=== PATIENT | male | born 1950 | race Caucasian/White ===

== ENCOUNTER → 2018-12-28 | Outpatient (CLI) | payer MEDICARE ==
[2018-12-28 15:53] LABS: BUN/CREATININE RATIO 10; CREATININE SERUM 1.08 MG/DL (0.60-1.30); GFR ESTIMATED > 60
[2018-12-28 16:07] LABS: ABG BASE EXCESS -1.9 MMOL/L (-2.5-2.5); ABG OXYGEN SATURATION 94 % (94-100); ABG PCO2 34 MMHG (35-45); ABG PH 7.43 (7.37-7.43); ABG PO2 62 MMHG (79-93); ABG TCO2 23.3 MMOL/L (21.0-31.0)
[2018-12-28 16:09] LABS: INSPIRED O2 ROOM AIR; PATIENT TEMP 96.1; VENTILATOR NO
== END ==
LOC: RT 15:13
PROVIDERS: ATTEND Nurse Practitioner Family
DX: J44.9 Chronic obstructive pulmonary disease, unspecified (principal); R06.00 Dyspnea, unspecified; J30.9 Allergic rhinitis, unspecified; R05 Cough; R06.89 Other abnormalities of breathing
CPT/HCPCS: 36415; 36600; 82565; 82805; 84520

== ENCOUNTER 2019-11-21 17:33 | Inpatient (IN) | payer MEDICARE ==
[~2019-11-21] VITALS: Ht 185.5 cm; Wt 81.6 kg
[2019-11-21] VITALS (8 sets, daily range): BP systolic 108–143; BP diastolic 63–91
[2019-11-21] MEDS ORDERED: RT-ALBUTEROL/IPRATROPIUM 3 ML (DUONEB) VIAL INH ONE (17:45)
[2019-11-21] MEDS ORDERED: NS IV 1000 ML 1,000 ML IV SCH (17:45)
[2019-11-21 17:52] LABS: BASOPHILS # (AUTO) 0.1 10^3/uL (0.0-0.1); BASOPHILS % (AUTO) 0 % (0-10); EOSINOPHILS % (AUTO) 0 % (0-10); HEMATOCRIT 44 % (40-54); HEMOGLOBIN 14.8 G/DL (13.3-17.7); LYMPHOCYTES # (AUTO) 1.1 X 10^3 (1.0-4.0); LYMPHOCYTES % (AUTO) 4 % (12-44); MEAN CORPUSCULAR HEMOGLOBIN 30 PG (25-34); MEAN CORPUSCULAR HGB CONC 34 G/DL (32-36); MEAN CORPUSCULAR VOLUME 88 FL (80-99); MEAN PLATELET VOLUME 9.5 FL (7.4-10.4); MONOCYTES # (AUTO) 3.4 X 10^3 (0.0-1.0); MONOCYTES % (AUTO) 11 % (0-12); NEUTROPHILS # (AUTO) 27.6 X 10^3 (1.8-7.8); NEUTROPHILS % (AUTO) 86 % (42-75); RED CELL DISTRIBUTION WIDTH 14.8 % (10.0-14.5)
[2019-11-21] MEDS ORDERED: PROMETHAZINE INJ 25 MG/ML (PHENERGAN) AMP IVP ONE (18:00)
[2019-11-21 18:03] LABS: ABG BASE EXCESS -1.7 MMOL/L (-2.5-2.5); ABG OXYGEN SATURATION 94 % (94-100); ABG PCO2 36 MMHG (35-45); ABG PH 7.41 (7.37-7.43); ABG PO2 72 MMHG (79-93); ABG TCO2 23.2 MMOL/L (21.0-31.0); ALLENS TEST YES-POS; INSPIRED O2 RA; PATIENT TEMP 37.6; VENTILATOR NO
[2019-11-21 18:04] LABS: PLATELET COUNT 1024 10^3/uL (130-400); WHITE BLOOD COUNT 32.2 10^3/uL (4.3-11.0)
[2019-11-21] MEDS ORDERED: RT-ALBUTEROL SULF 2.5 MG/3 ML PRE-MIX VIAL INH SCH (18:15)
[2019-11-21 18:17] LABS: ALANINE AMINOTRANSFERASE 50 U/L (0-55); ALBUMIN 3.7 GM/DL (3.2-4.5); ALKALINE PHOSPHATASE 146 U/L (40-136); BILIRUBIN,TOTAL 0.9 MG/DL (0.1-1.0); BUN/CREATININE RATIO 24; CALCIUM 9.9 MG/DL (8.5-10.1); CARBON DIOXIDE 22 MMOL/L (21-32); CHLORIDE 101 MMOL/L (98-107); GFR ESTIMATED 46; GLUCOSE 107 MG/DL (70-105); POTASSIUM 4.5 MMOL/L (3.6-5.0); SODIUM 137 MMOL/L (135-145); TOTAL PROTEIN 7.7 GM/DL (6.4-8.2)
--- NOTE | 2019-11-21 18:21 | Diagnostic Imaging Report ---
INDICATION: Fatigue, COPD. COMPARISON: None. FINDINGS: Single view of the chest demonstrates hyperinflation compatible with COPD. There are bilateral interstitial infiltrates most pronounced in the left hilum. There is no pneumothorax or effusion. The heart is prominent without pulmonary edema. Osseous structures are age appropriate. IMPRESSION: COPD with bilateral pulmonary infiltrates most pronounced in the left hilum. Follow-up recommended. If this does not resolve, CT chest is needed. Dictated by: Dictated on workstation # [id number]
--- NOTE | 2019-11-21 18:27 | ED Respiratory ---
General Chief Complaint: Respiratory Problems Stated Complaint: FLU GETTING WORSE Nursing Triage Note: pt to rm 7 by wheelchair with complaint of worsening of symptoms. pt had flu a few weeks ago and started having chest tightness on thursday. Source: patient Exam Limitations: no limitations History of Present Illness Date Seen by Provider: Nov 21, 2019 Time Seen by Provider: 17:50 Initial Comments [place] [facility] reports of worsening flulike symptoms. He was diagnosed with influenza about 2 weeks ago, symptoms then improved. About 2 days ago they became worse with fever shortness of breath increasing and chest tightness. He has COPD. Does not wear oxygen at home. Timing/Duration: constant, getting worse Severity: moderate Associated Symptoms: cough, fever/chills, shortness of breath, wheezing Allergies and Home Medications Allergies Coded Allergies: No Known Drug Allergies (Unverified , 11/21/19) Patient Home Medication List Home Medication List Reviewed: Yes Review of Systems Review of Systems Constitutional: see HPI, chills, fever EENTM: see HPI Respiratory: see HPI, cough Cardiovascular: no symptoms reported Genitourinary: no symptoms reported Musculoskeletal: no symptoms reported Skin: no symptoms reported Psychiatric/Neurological: No Symptoms Reported Hematologic/Lymphatic: No Symptoms Reported Immunological/Allergic: no symptoms reported Past Hingsco-Ezhzci-Yxfpcz Hx Patient Social History Alcohol Use: Occasionally Uses Recreational Drug Use: No Smoking Status: Former Smoker Recent Foreign Travel: No Contact w/Someone Who Travel: No Recent Infectious Disease Expo: No Immunizations Up To Date Tetanus Booster (TDap): Unknown PED Vaccines UTD: Yes Physical Exam Vital Signs - First Documented 11/21/19 17:40 Temp 37.6 Pulse 121 Resp 18 B/P (MAP) 108/91 (97) Pulse Ox 93 O2 Delivery Nasal Cannula O2 Flow Rate 2.00 Capillary Refill : Less Than 3 Seconds Height: '" Weight: lbs. oz. kg; 19.00 BMI Method: General Appearance: WD/WN, moderate distress (speaks in short phrases, oxygen saturation 87% room air. Diminished lung sounds with faint wheezing that improved after an hour long treatment) Respiratory: decreased breath sounds, wheezing Cardiovascular: no murmur, tachycardia Gastrointestinal: normal bowel sounds, non tender, soft Neurologic/Psychiatric: alert, normal mood/affect, oriented x 3 Skin: normal color, warm/dry Focused Exam Lactate Level 11/21/19 17:43: Lactic Acid Level 1.28 Lactic Acid Level Laboratory Tests Test 11/21/19 17:43 Lactic Acid Level 1.28 MMOL/L (0.50-2.00) Progress/Results/Core Measures Suspected Sepsis Recent Fever Within 48 Hours: No Infection Criteria Present: None New/Unexplained Altered Menta: No Sepsis Screen: No Definite Risk SIRS Temperature: Pulse: 121 Respiratory Rate: 18 Laboratory Tests 11/21/19 17:43: White Blood Count 32.2*H Blood Pressure 108 /91 Mean: 97 11/21/19 17:43: Lactic Acid Level 1.28 Laboratory Tests 11/21/19 17:43: Creatinine 1.50H, Platelet Count 1024*H, Total Bilirubin 0.9 Results/Orders Lab Results Laboratory Tests Test 11/21/19 17:43 11/21/19 17:48 Range/Units White Blood Count 32.2 *H 4.3-11.0 10^3/uL Red Blood Count 4.98 4.35-5.85 10^6/uL Hemoglobin 14.8 13.3-17.7 G/DL Hematocrit 44 40-54 % Mean Corpuscular Volume 88 80-99 FL Mean Corpuscular Hemoglobin 30 25-34 PG Mean Corpuscular Hemoglobin Concent 34 32-36 G/DL Red Cell Distribution Width 14.8 H 10.0-14.5 % Platelet Count 1024 *H 130-400 10^3/uL Mean Platelet Volume 9.5 7.4-10.4 FL Neutrophils (%) (Auto) 86 H 42-75 % Lymphocytes (%) (Auto) 4 L 12-44 % Monocytes (%) (Auto) 11 0-12 % Eosinophils (%) (Auto) 0 0-10 % Basophils (%) (Auto) 0 0-10 % Neutrophils # (Auto) 27.6 H 1.8-7.8 X 10^3 Lymphocytes # (Auto) 1.1 1.0-4.0 X 10^3 Monocytes # (Auto) 3.4 H 0.0-1.0 X 10^3 Eosinophils # (Auto) 0.0 0.0-0.3 10^3/uL Basophils # (Auto) 0.1 0.0-0.1 10^3/uL Neutrophils % (Manual) 83 % Lymphocytes % (Manual) 5 % Monocytes % (Manual) 9 % Band Neutrophils 3 % Blood Morphology Comment NORMAL Sodium Level 137 135-145 MMOL/L Potassium Level 4.5 3.6-5.0 MMOL/L Chloride Level 101 98-107 MMOL/L Carbon Dioxide Level 22 21-32 MMOL/L Anion Gap 14 5-14 MMOL/L Blood Urea Nitrogen 36 H 7-18 MG/DL Creatinine 1.50 H 0.60-1.30 MG/DL Estimat Glomerular Filtration Rate 46 BUN/Creatinine Ratio 24 Glucose Level 107 H 70-105 MG/DL Lactic Acid Level 1.28 0.50-2.00 MMOL/L Calcium Level 9.9 8.5-10.1 MG/DL Corrected Calcium 10.1 8.5-10.1 MG/DL Total Bilirubin 0.9 0.1-1.0 MG/DL Aspartate Amino Transf (AST/SGOT) 36 H 5-34 U/L Alanine Aminotransferase (ALT/SGPT) 50 0-55 U/L Alkaline Phosphatase 146 H 40-136 U/L Troponin I < 0.028 <0.028 NG/ML B-Type Natriuretic Peptide 19.2 <100.0 PG/ML Total Protein 7.7 6.4-8.2 GM/DL Albumin 3.7 3.2-4.5 GM/DL Blood Gas Puncture Site RR Blood Gas Patient Temperature 37.6 Arterial Blood pH 7.41 7.37-7.43 Arterial Blood Partial Pressure CO2 36 35-45 MMHG Arterial Blood Partial Pressure O2 72 L 79-93 MMHG Arterial Blood HCO3 22 L 23-27 MMOL/L Arterial Blood Total CO2 23.2 21.0-31.0 MMOL/L Arterial Blood Oxygen Saturation 94 94-100 % Arterial Blood Base Excess -1.7 -2.5-2.5 MMOL/L Pacheco Test YES-POS Blood Gas Ventilator Setting NO Blood Gas Inspired Oxygen RA Micro Results Microbiology 11/21/19 Influenza Types A,B Antigen ([place]) - Final, Complete My Orders Orders - JENELLE SIMMONS [employer] Cbc With Automated Diff (11/21/19 17:44) Comprehensive Metabolic Panel (11/21/19 17:44) BNP (11/21/19 17:44) Influenza A And B Antigens (11/21/19 17:44) Chest 1 View, Ap/Pa Only (11/21/19 17:44) Ed Iv/Invasive Line Start (11/21/19 17:44) Blood Culture (11/21/19 17:44) Lactic Acid Analyzer (11/21/19 17:44) Ekg Tracing (11/21/19 17:44) Troponin I (11/21/19 17:44) Ns Iv 1000 Ml (Sodium Chloride 0.9%) (11/21/19 17:45) Albuterol/Ipra Inhalation Soln (Duoneb I (11/21/19 17:45) Svn Small Volume Nebulizer (11/21/19 17:44) Arterial Blood Gas (11/21/19 17:49) Promethazine Injection (Phenergan Injec (11/21/19 18:00) Manual Differential (11/21/19 17:43) Albuterol Pre-Mix Nebs (Rt) (Proventil (11/21/19 18:15) Svn Small Volume Nebulizer (11/21/19 18:05) Piperacillin Sodium/Tazobactam (Zosyn Vi (11/21/19 18:45) Chest 1 View, Ap/Pa Only (11/21/19 19:07) Medications Given in ED Current Medications Medications Dose Ordered Sig/Cody Route Start Time Stop Time Status Last Admin Dose Admin Albuterol/ Ipratropium 3 ml ONCE ONCE INH 11/21/19 17:45 11/21/19 17:47 DC 11/21/19 18:31 3 ML Piperacillin Sod/ Tazobactam Sod 4.5 gm/Sodium Chloride 100 ml @ 200 mls/hr ONCE ONCE IV 11/21/19 18:45 11/21/19 19:14 11/21/19 18:50 200 MLS/HR Vital Signs/I&O 11/21/19 11/21/19 11/21/19 17:40 18:31 18:32 Temp 37.6 Pulse 121 Resp 18 B/P (MAP) 108/91 (97) Pulse Ox 93 95 95 O2 Delivery Nasal Cannula Nasal Cannula Nasal Cannula O2 Flow Rate 2.00 2.00 2.00 Capillary Refill : Less Than 3 Seconds Blood Pressure Mean: 97 Departure Communication (Admissions) Time/Spoke to Admitting Phy: 19:11 1910-Spoke with Dr. Sepulveda, we will admit, blood pressure is been little softer at 100 systolic, heart rate tachycardia 110-120. Zosyn 4.5 g given. After much deliberation the patient finally agreed to central line placement. I did use ultrasound guidance to place a central line into the right internal jugular vein without complication, good blood return. Patient tolerated well. Impression Primary Impression: post influenza pneumonia Additional Impressions: Severe sepsis thrombocytosis presumed reactive Disposition: ADMITTED INPATIENT Condition: Critical Admissions Decision to Admit Reason: Admit from ER (General) Decision to Admit/Date: Nov 21, 2019 Time/Decision to Admit Time: 19:12 Departure-Patient Inst. Referrals: DEEJAY DE MD (PCP/Family) Primary Care Physician JENELLE SIMMONS APRN Nov 21, 2019 18:27
--- NOTE | 2019-11-21 18:40 | History & Physical-Hospitalist ---
History of Present Illness HPI/Chief Complaint CC: Bilateral pneumonia HPI: This is a 69yoWM clinic patient of Dr Pedersen who is known to me since last admit for PNA who [facility] and fever 2 weeks after flu. Patient was found to have elevated wbc with bilateral PNA and thrombocytosis. Patient reports feeling badly and wheezing for the past 3 days. Patient does not wear O2 at home. Source: patient Exam Limitations: no limitations Date Seen 11/21/19 Time Seen by a Provider: 18:45 Attending Physician PCP Shaw Pedersen MD Referring Physician Date of Admission Home Medications & Allergies Home Medications Reviewed patient Home Medication Reconciliation performed by pharmacy medication reconciliations template reproduction technician and/or nursing. Patients Allergies have been reviewed. Allergies Allergies Coded Allergies No Known Drug Allergies (Unverified11/21/19) Past Bpxveja-Spgruu-Ivygzd Hx Past Med/Social Hx: Reviewed Nursing Past Med/Soc Hx, Reviewed and Corrections made Patient Social History Marrital Status: Employed/Student: retired Alcohol Use: Occasionally Uses Recreational Drug Use: No Smoking Status: Former Smoker Recent Foreign Travel: No Contact w/other who traveled: No Recent Infectious Disease Expo: No Immunizations Up To Date Tetanus Booster (TDap): Unknown Pediatric: Yes Past Medical History Respiratory: COPD, Pneumonia Review of Systems Constitutional: see HPI Respiratory: cough, dyspnea on exertion, short of breath, wheezing Physical Exam Physical Exam Vital Signs Vital Signs - First Documented 11/21/19 11/21/19 17:40 23:02 Temp 37.6 Pulse 121 Resp 18 B/P (MAP) 108/91 (97) Pulse Ox 93 O2 Delivery Nasal Cannula O2 Flow Rate 2.00 FiO2 2 Capillary Refill : Less Than 3 Seconds Height, Weight, BMI Height: '" Weight: lbs. oz. kg; 19.00 BMI Method: General Appearance: WD/WN, Anxious, Chronically ill, Mild Distress Eyes: Right Eye Normal Inspection, Right Eye PERRL HEENT: PERRL/EOMI, Normal ENT Inspection, Pharynx Normal, Moist Mucous Membranes Neck: Full Range of Motion, Normal Inspection, Non Tender Respiratory: Chest Non Tender, No Accessory Muscle Use, No Respiratory Distress, Crackles, Decreased Breath Sounds, Wheezing Cardiovascular: Regular Rate, Rhythm, No Edema, No Gallop, No JVD, No Murmur, Normal Peripheral Pulses Gastrointestinal: Normal Bowel Sounds, No Organomegaly, No Pulsatile Mass, Non Tender, Soft Back: Normal Inspection, No CVA Tenderness, No Vertebral Tenderness Extremity: Normal Capillary Refill, Normal Inspection, Normal Range of Motion, Non Tender, No Calf Tenderness, No Pedal Edema Neurologic/Psychiatric: Alert, Oriented x3, No Motor/Sensory Deficits, Normal Mood/Affect Skin: Normal Color, Warm/Dry Lymphatic: No Adenopathy Results Results/Procedures Labs Laboratory Tests 11/21/19 17:43 11/22/19 03:17 Patient resulted labs reviewed. Assessment/Plan Admission Diagnosis Assessment: PNA bilateral COPD Leukocytosis Thrombocytosis Plan: Abx IVF Monitor closely Admission Status: Inpatient Order (span 2 midnights) Reason for Inpatient Admission: PNA bilateral Diagnosis/Problems Diagnosis/Problems (1) Severe sepsis Status: Acute (2) Pneumonia (3) Thrombocytosis (4) Leukocytosis (5) COPD (chronic obstructive pulmonary disease) BALDOMERO ROSALES DO Nov 21, 2019 18:40
[2019-11-21] MEDS ORDERED: PIPERACILLIN SODIUM/TAZOBACTAM 4.5 GM in NS (IVPB) 100 ML IV ONE (18:45)
[2019-11-21 18:49] LABS: BAND NEUTROPHILS 3 %; NEUTROPHILS % (MANUAL) 83 %
[2019-11-21 18:50] LABS: LYMPHOCYTES % (MANUAL) 5 %; MONOCYTES % (MANUAL) 9 %; RBC MORPH NORMAL
--- NOTE | 2019-11-21 19:00 | NUR ---
CENTRAL LINE INSERTED BY Sangeetha GARCIA IN R IJ.
--- NOTE | 2019-11-21 19:32 | Diagnostic Imaging Report ---
INDICATION: Central venous catheter evaluation Portable upright AP view of the chest is obtained. Since the study of earlier in the day, there has been placement of right jugular central venous catheter with tip projecting over the region of right brachiocephalic vein. There is air trapping bilaterally. Coarse interstitial and alveolar densities are seen in both lungs with a central predominance. In addition, there is an approximately 1 cm nodular focus seen within the region of right upper lobe. IMPRESSION: Bilateral infiltrates similar to previous study. There is likely background COPD. There is also question of 1 cm nodular focus in the right upper lobe and consideration could be given to follow-up CT imaging for assessment. Right central venous catheter reaches the level of brachiocephalic vein without pneumothorax. Dictated by: Dictated on workstation # [id number]
--- NOTE | 2019-11-21 20:43 | NUR ---
MALATHIJOSEFINA admitted to room CU12-1, with an admitting diagnosis of Pneumonia, on 11/21/19 from [facility] ED, accompanied by .JOSEFINA SERVIN introduced to surroundings, call light, bed controls, phone, TV, temperature control, lights, meal times, smoking policy, visitor policy, side rail policy, bathrooms and showers. Patient Rights given to patient in the handbook. JOSEFINA SERVIN verbalizes understanding that [facility] is not responsible for the loss or damage to any personal effects or valuables that are kept in the patients possession during their hospitalization. The following Patient Care Plans were discussed with the patient and family: Discharge Planning, pain,diet, and activity. JOSEFINA SERVIN verbalizes understanding of Interdisciplinary Patient Education. Patient and/or family were informed about the Rapid Response Team and its purpose.
[2019-11-21] MEDS ORDERED: LACTATED RINGERS 1,000 ML IV ONE (21:15)
[2019-11-21] MEDS ORDERED: ACETAMINOPHEN 325 MG TABLET PO PRN (22:00)
[2019-11-21] MEDS ORDERED: EPINEPHrine 1 MG INJECTION 2 MG in NS (IVPB) 250 ML IV SCH (22:00)
[2019-11-21] MEDS ORDERED: ONDANSETRON 4 MG/2 ML (SDV) Z0FRAN IV PRN (22:00)
[2019-11-21] MEDS ORDERED: ENOXAPARIN 40 MG/0.4 ML (LOVENOX) SYR SC SCH (22:00)
[2019-11-21] MEDS ORDERED: IBUPROFEN 600 MG (MOTRIN) TAB PO PRN (22:00)
[2019-11-21] MEDS: VASOPRESSIN INJECTION 20 UNIT in NORMAL SALINE 100 ML IV SCH (22:06)
[2019-11-21] MEDS: NOREPINEPHRINE 4 MG/250 ML 250 ML IV SCH (22:06)
[2019-11-21] MEDS: methylPREDNISolone 125 MG (Solu-MEDROL) VIAL IVP SCH (22:11)
[2019-11-21] MEDS ORDERED: LACTATED RINGERS 1,000 ML IV SCH (22:11)
[2019-11-21] MEDS: LACTATED RINGERS 1,000 ML IV SCH (22:17)
[2019-11-21] MEDS ORDERED: NS (IVPB) 250 ML ONE (22:45)
[2019-11-21] MEDS ORDERED: NS (IVPB) 100 ML ONE (22:45)
[2019-11-21] MEDS ORDERED: VANCOMYCIN 1000 MG/VIAL ONE (22:45)
[2019-11-21] MEDS ORDERED: PIPERACILLIN/TAZO 4.5 GM VIAL (ZOSYN) IV ONE (22:45)
[2019-11-21] MEDS ORDERED: VANCOMYCIN 1 GM/NS 250 ML IVPB IV SCH ×2 (23:00)
[2019-11-22] VITALS (13 sets, daily range): BP systolic 100–129; BP diastolic 63–91
[2019-11-22] MEDS: PIPERACILLIN/TAZOBACTAM (BULK) 4.5 GM in NS (IVPB) 100 ML IV SCH ×3 (00:33→19:21)
[2019-11-22] MEDS ORDERED: RT-ALBUTEROL/IPRATROPIUM 3 ML (DUONEB) VIAL INH SCH ×2 (02:00→09:00)
[2019-11-22] MEDS: RT-ALBUTEROL/IPRATROPIUM 3 ML (DUONEB) VIAL INH PRN ×2 (02:42→14:56)
[2019-11-22 03:26] LABS: BASOPHILS % (AUTO) 0 % (0-10); EOSINOPHILS % (AUTO) 0 % (0-10); HEMATOCRIT 36 % (40-54); HEMOGLOBIN 12.2 G/DL (13.3-17.7); LYMPHOCYTES # (AUTO) 0.4 X 10^3 (1.0-4.0); LYMPHOCYTES % (AUTO) 2 % (12-44); MEAN CORPUSCULAR HEMOGLOBIN 30 PG (25-34); MEAN CORPUSCULAR HGB CONC 34 G/DL (32-36); MEAN CORPUSCULAR VOLUME 89 FL (80-99); MEAN PLATELET VOLUME 9.3 FL (7.4-10.4); MONOCYTES # (AUTO) 0.4 X 10^3 (0.0-1.0); MONOCYTES % (AUTO) 2 % (0-12); NEUTROPHILS # (AUTO) 22.8 X 10^3 (1.8-7.8); NEUTROPHILS % (AUTO) 96 % (42-75); PLATELET COUNT 843 10^3/uL (130-400); RED CELL DISTRIBUTION WIDTH 14.6 % (10.0-14.5); WHITE BLOOD COUNT 23.7 10^3/uL (4.3-11.0)
--- NOTE | 2019-11-22 03:30 | NUR ---
Patient with new onset A FIB RVR confirmed by EKG called to Dr Sepulveda. Order to call cardiology.
--- NOTE | 2019-11-22 03:31 | NUR ---
Call placed to Dr Barksdale, order to start Cardizem drip @10mg/hr and titrate PRN. Order for Lovenox 70mg q 12 hrs.
[2019-11-22] MEDS ORDERED: NS (IVPB) 100 ML ONE (03:35)
[2019-11-22] MEDS ORDERED: ENOXAPARIN 80 MG/0.8 ML (LOVENOX) SYR SC SCH (03:45)
[2019-11-22 03:46] LABS: ALANINE AMINOTRANSFERASE 42 U/L (0-55); ALKALINE PHOSPHATASE 109 U/L (40-136); BILIRUBIN,TOTAL 0.6 MG/DL (0.1-1.0); BUN/CREATININE RATIO 27; CALCIUM 8.9 MG/DL (8.5-10.1); CARBON DIOXIDE 21 MMOL/L (21-32); CHLORIDE 105 MMOL/L (98-107); GFR ESTIMATED > 60; GLUCOSE 153 MG/DL (70-105); SODIUM 136 MMOL/L (135-145); TOTAL PROTEIN 6.3 GM/DL (6.4-8.2)
[2019-11-22] MEDS: methylPREDNISolone 125 MG (Solu-MEDROL) VIAL IVP SCH (03:50)
--- NOTE | 2019-11-22 04:30 | Pulmonary Consultation ---
History of Present Illness History of Present Illness Date Seen by Provider: Nov 22, 2019 Time Seen by Provider: 04:24 Date of Admission Allergies and Home Medications Allergies Coded Allergies: No Known Drug Allergies (Unverified , 11/21/19) Past Trfuerh-Oobqym-Gspqdl Hx Past Med/Social Hx: Reviewed Nursing Past Med/Soc Hx, Reviewed and Corrections made Patient Social History Alcohol Use: Occasionally Uses Alcohol Beverage of Choice: Beer Recreational Drug Use: No Smoking Status: Former Smoker Recent Foreign Travel: No Contact w/Someone Who Travel: No Recent Infectious Disease Expo: No Recent Hopitalizations: No Immunizations Up To Date Tetanus Booster (TDap): Unknown PED Vaccines UTD: No Date of Pneumonia Vaccine: Jul 21, 2017 Seasonal Allergies Seasonal Allergies: Yes Past Medical History Surgeries: No Respiratory: Yes COPD Currently Using CPAP: No Currently Using BIPAP: No Cardiac: No Neurological: No Genitourinary: No Gastrointestinal: No Musculoskeletal: No Endocrine: No HEENT: No Cancer: No Psychosocial: No Integumentary: Yes (Spot on left ear "burnt off several yrs ago") Recent Skin Changes Blood Disorders: No Adverse Reaction/Blood Tranf: No Family Medical History Abdominal aortic aneurysm Alzheimer's disease 19 FATHER, , Onset:60 years & older Completed stroke G8 SISTER, Onset:60 years & older FH: blindness 19 FATHER, , Onset:Unknown 19 MOTHER, , Onset:Unknown FH: breast cancer 19 MOTHER, , Onset:40's - 50 FH: colon cancer G8 BROTHER, Onset:60 years & older FH: liver cancer G8 BROTHER, Onset:60 years & older Sepsis Event Evaluation Height, Weight, BMI Height: '" Weight: lbs. oz. kg; 21.79 BMI Method: Exam Exam Vital Signs Date Time Temp Pulse Resp B/P (MAP) Pulse Ox O2 Delivery O2 Flow Rate FiO2 11/22/19 03:50 Nasal Cannula 3.00 11/22/19 03:50 36.9 133 22 116/68 (84) 92 Nasal Cannula 3.00 11/22/19 03:45 140 116/68 11/22/19 02:42 95 Nasal Cannula 2.00 11/21/19 23:18 91 Nasal Cannula 2.00 11/21/19 23:02 37.6 121 93 2 11/21/19 23:00 36.7 110 22 143/74 (97) 94 Nasal Cannula 3.00 11/21/19 23:00 Nasal Cannula 3.00 11/21/19 22:00 101 14 125/65 (85) 96 Nasal Cannula 3.00 11/21/19 21:45 107 17 114/64 (81) 95 Nasal Cannula 3.00 11/21/19 21:44 94 Nasal Cannula 3.00 11/21/19 21:30 112 23 111/66 (81) 94 Nasal Cannula 3.00 11/21/19 21:15 112 19 124/69 (87) 94 Nasal Cannula 3.00 11/21/19 21:00 113 18 111/63 (79) 92 Nasal Cannula 3.00 11/21/19 20:48 115 11/21/19 20:45 36.9 112 16 109/83 (92) 94 Nasal Cannula 3.00 11/21/19 20:23 37.4 110 17 113/76 (97) 95 Nasal Cannula 2.00 11/21/19 18:32 95 Nasal Cannula 2.00 11/21/19 18:31 95 Nasal Cannula 2.00 11/21/19 17:40 37.6 121 18 108/91 (97) 93 Nasal Cannula 2.00 I & O 11/22/19 07:00 Intake Total 2410 ml Output Total 0 ml Balance 2410 ml Height & Weight Height: '" Weight: lbs. oz. kg; 21.79 BMI Method: General Appearance: WD/WN, Anxious, Chronically ill, Mild Distress HEENT: PERRL/EOMI, Normal ENT Inspection, Pharynx Normal, Moist Mucous Membranes Neck: Full Range of Motion, Normal Inspection, Non Tender Respiratory: Chest Non Tender, No Accessory Muscle Use, No Respiratory Distress, Crackles, Decreased Breath Sounds, Wheezing Cardiovascular: Regular Rate, Rhythm, No Edema, No Gallop, No JVD, No Murmur, Normal Peripheral Pulses Capillary Refill: Less Than 3 Seconds Gastrointestinal: normal bowel sounds, non tender, soft Extremity: Normal Capillary Refill, Normal Inspection, Normal Range of Motion, Non Tender, No Calf Tenderness, No Pedal Edema Neurologic/Psychiatric: Alert, Oriented x3, No Motor/Sensory Deficits, Normal Mood/Affect Skin: Normal Color, Warm/Dry Lymphatic: No Adenopathy Results Lab Laboratory Tests 11/21/19 17:43 2/11/20 03:17 Assessment/Plan Assessment/Plan Bilateral PNA -Influenza negative -Vanco/Zosyn -Weir cultures pending COPD -Duonebs add pulmicort -Solumedrol -Pt will probably need home 02 upon discharge -Check CT of chest with contrast r/o mass Afib RVR -- new onset last night -Cardizem gtt -IVF -Cardiology following KEITH MULLEN DO Nov 22, 2019 04:30
[2019-11-22] MEDS: LACTATED RINGERS 1,000 ML IV SCH ×3 (05:34→19:22)
[2019-11-22] MEDS: NOREPINEPHRINE 4 MG/250 ML 250 ML IV SCH ×3 (05:34→21:49)
[2019-11-22] MEDS: VASOPRESSIN INJECTION 20 UNIT in NORMAL SALINE 100 ML IV SCH ×3 (05:34→22:21)
[2019-11-22 05:46] LABS: ABG BASE EXCESS -1.2 MMOL/L (-2.5-2.5); ABG OXYGEN SATURATION 95 % (94-100); ABG PCO2 34 MMHG (35-45); ABG PH 7.44 (7.37-7.43); ABG PO2 72 MMHG (79-93); ABG TCO2 23.5 MMOL/L (21.0-31.0)
[2019-11-22 05:47] LABS: ALLENS TEST YES-POS; INSPIRED O2 3L; PATIENT TEMP 36.8; VENTILATOR NO
[2019-11-22] MEDS ORDERED: FLU QUADRIvalent (5+ YOA) 2019-2020 (AFLURIA) 0.5 ML IM ONE (06:45)
[2019-11-22 07:33] LABS: BILIRUBIN,URINE NEGATIVE (NEGATIVE); CLARITY,URINE CLEAR; COLOR,URINE YELLOW; GLUCOSE, URINE (UA) 1+ (NEGATIVE); KETONES,URINE TRACE (NEGATIVE); LEUKOCYTE ESTERASE ,URINE NEGATIVE (NEGATIVE); NITRITE,URINE NEGATIVE (NEGATIVE); PROTEIN,URINE 1+ (NEGATIVE)
[2019-11-22 07:46] LABS: BACTERIA,URINE FEW /HPF; RBC,URINE 0-2 /HPF
[2019-11-22 07:47] LABS: HYALINE CASTS, URINE RARE /LPF; SQUAMOUS EPITHELIAL CELL,UR RARE /HPF
[2019-11-22] MEDS: VANCOMYCIN INJECTION 1,000 MG in NS (IVPB) 250 ML IV SCH ×2 (08:07→20:55)
[2019-11-22] MEDS ORDERED: FLUT1AER INH (08:52)
[2019-11-22] MEDS ORDERED: MULT1TAB69 PO (08:52)
[2019-11-22] MEDS ORDERED: GUAI120013 PO (08:52)
[2019-11-22] MEDS ORDERED: IPRA3AMP31 NEB (08:52)
[2019-11-22] MEDS ORDERED: CETI10TA17 PO (08:52)
[2019-11-22] MEDS ORDERED: ASPI325T32 PO (08:52)
--- NOTE | 2019-11-22 08:53 | NUR ---
SPOKE WITH THE PATIENT ABOUT HIS MEDICATIONS. HE STATES PRESCRIPTION HE HAS THE BREO INHALER AND DUONEB NEBULIZER SOLUTION, I VERIFIED THESE WITH THE EXT MED HX. OTC MEDS: ZYRTEC 10MG DAILY MUCINEX 1200MG DAILY MTV DAILY ASPIRIN 325MG DAILY
[2019-11-22] MEDS: methylPREDNISolone 40 MG/ML (Solu-MEDROL) VIAL IVP SCH ×2 (09:29→19:21)
[2019-11-22] MEDS: RT-BUDESONIDE NEBS 0.5 MG/2ML (PULMICORT) AMP INH SCH ×2 (09:56→21:46)
--- NOTE | 2019-11-22 10:23 | NUR ---
Initial visit: The pt shared that his Britta has a cough and he is encouraging her to go to a doctor so both do not become seriously ill. He is Lutheran with no episcopalian preference. The pt shared he used to do [employer] and has worked in the farming industry. He shared openly about his life and welcomed ongoing pastoral support.
[2019-11-22] MEDS ORDERED: NS 100 ML (IVPB) BAG IV ONE (10:30)
[2019-11-22] MEDS ORDERED: IOHEXOL 350 MG/ML 100 ML (OMNIPAQUE 350) VIAL IV ONE (10:30)
[2019-11-22] MEDS ORDERED: CATHETER FLUSH 10 ML SYR IV PRN (10:30)
[2019-11-22] MEDS ORDERED: HOLD METFORMIN - RECEIVED CONTRAST 20 ML VIAL IV SCH (10:30)
--- NOTE | 2019-11-22 10:32 | Consultation-Cardiology ---
HPI-Cardiology Cardiology Consultation: Date of Consultation 11/22/19 Time Seen by a Provider: 10:10 Date of Admission 11-21-2019 Attending Physician Giselle Sepulveda DO Admitting Physician Shaw Pedersen MD Consulting Physician CLARY GARCIA HPI: Chief Complaint: New onset a-fib with RVR Mr. Servin is a 69 year old male who has seth admitted to ICU 12 from the ED. He reports at the end of October 2019 he was diagnosed with influenza. He states he was given Tamiflu. He reports he has had progressive SOB over the course of the last 2 weeks, but on Thursday he developed a fever which persisted off and on till Thursday. He states he has had a frequent dry cough for the last several day. He denies any n/v/d. He reports poor appetite. He reports chest tightness which has been constant for several days. He denies any palpitations, syncope, near syncope or LE swelling. He reports he feels his breathing is not much better than at the time of admission. He does use chew tobacco. Review of Systems-Cardiology Review of Systems Constitutional: chills, fever, malaise Eyes: No vision change Ears/Nose/Throat: No epistaxis, No recent hearing loss Respiratory: As described under HPI Cardiovascular: As described under HPI Gastrointestinal: No constipation, No diarrhea, No nausea, No vomiting Genitourinary: No dysuria Musculoskeletal: no symptoms reported Skin: No rash on exposed areas, No ulcerations on exposed areas Psychiatric/Neurological: No anxiety, No depression, No seizure, No focal weakness, No syncope Hematologic: No bleeding abnormalities [id number]-[id number] Hx Patient Social History Marrital Status: Employed/Student: retired Alcohol Use: Occasionally Uses Recreational Drug Use: No Smoking Status: Former Smoker Recent Foreign Travel: No Recent Infectious Disease Expo: No Hospitalization with Isolation: Denies Physical Abuse Screen: No Sexual Abuse: No Immunizations Up To Date Tetanus Booster (TDap): Unknown Date of Pneumonia Vaccine: Jul 21, 2017 Past Medical History PMH As described under Assessment. Family Medical History Family Medical History: He reports his mother, brother and sister have had CVA's. No reported family h/o CAD. Family History: Abdominal aortic aneurysm Alzheimer's disease 19 FATHER, , Onset:60 years & older Completed stroke G8 SISTER, Onset:60 years & older FH: blindness 19 FATHER, , Onset:Unknown 19 MOTHER, , Onset:Unknown FH: breast cancer 19 MOTHER, , Onset:40's - 50 FH: colon cancer G8 BROTHER, Onset:60 years & older FH: liver cancer G8 BROTHER, Onset:60 years & older Allergies and Home Medications Allergies Coded Allergies: No Known Drug Allergies (Unverified , 11/21/19) Home Medications Aspirin 325 Mg Tablet.dr, 325 MG PO DAILY, (Reported) Cetirizine HCl 10 Mg Tablet, 10 MG PO DAILY, (Reported) Fluticasone/Vilanterol 1 Each Blst.w.dev, 1 PUFF INH DAILY, (Reported) Guaifenesin 1,200 Mg Tab.er.12h, 1,200 MG PO DAILY, (Reported) Ipratropium/Albuterol Sulfate 3 Ml Ampul.neb, 3 ML NEB QID PRN for SHORTNESS OF BREATH, (Reported) Multivitamin 1 Each Tablet, 1 TAB PO DAILY, (Reported) Patient Home Medication List Home Medication List Reviewed: Yes Physical Exam-Cardiology Physical Exam Vital Signs/I&O 11/23/19 11/23/19 11/23/19 11/23/19 01:18 01:45 04:00 04:30 Temp 37.2 Pulse 76 77 Resp 21 B/P (MAP) 110/75 (87) Pulse Ox 96 95 94 O2 Delivery Nasal Cannula Nasal Cannula Nasal Cannula O2 Flow Rate 3.00 3.00 3.00 11/23/19 11/23/19 11/23/19 11/23/19 06:37 07:27 07:31 08:00 Pulse 100 112 Resp 16 B/P (MAP) 142/73 (96) Pulse Ox 94 95 O2 Delivery Nasal Cannula Nasal Cannula Nasal Cannula O2 Flow Rate 3.00 3.00 3.00 11/23/19 11/23/19 11/23/19 08:00 09:00 10:56 Pulse Ox 95 95 93 O2 Delivery Nasal Cannula Nasal Cannula Nasal Cannula O2 Flow Rate 3.00 3.00 3.00 11/23/19 00:00 Intake Total 2380 ml Output Total 1300 ml Balance 1080 ml Capillary Refill : Less Than 3 Seconds Constitutional: AAO x 3, well-developed, well-nourished HEENT: PERRL, hearing is well preserved, oral hygience is good Neck: No carotid bruit; carotid pulses are 2 + bilaterally Respiratory: rhonchi (scattered), other (diminished throughout; dyspneic with conversation; frequent non-prod cough) Cardiovascular: irregularly irregular; No JVD; S1 and S2 Gastrointestinal: No tender; soft, round, audible bowel sounds Extremities: no lower extremity edema bilateral Neurologic/Psychiatric: other (moves all extremities) Skin: No rash on exposed areas, No ulcerations on exposed areas Data Review Labs Laboratory Tests 11/23/19 02:30: White Blood Count 21.7H, Red Blood Count 3.58L, Hemoglobin 10.6L, Hematocrit 32L , Mean Corpuscular Volume 90, Mean Corpuscular Hemoglobin 30, Mean Corpuscular Hemoglobin Concent 33, Red Cell Distribution Width 15.0H, Platelet Count 823H, Mean Platelet Volume 9.3, Neutrophils (%) (Auto) 94H, Lymphocytes (%) (Auto) 2L, Monocytes (%) (Auto) 4, Eosinophils (%) (Auto) 0, Basophils (%) (Auto) 0, Neutrophils # (Auto) 20.5H, Lymphocytes # (Auto) 0.4L, Monocytes # (Auto) 0.9, Eosinophils # (Auto) 0.0, Basophils # (Auto) 0.0, Sodium Level 139, Potassium Level 3.9, Chloride Level 108H, Carbon Dioxide Level 22, Anion Gap 9, Blood Urea Nitrogen 25H, Creatinine 1.04, Estimat Glomerular Filtration Rate > 60, BUN/Creatinine Ratio 24, Glucose Level 224H, Calcium Level 8.7, Corrected Calcium 9.7, Phosphorus Level 2.1L, Magnesium Level 2.1, Total Bilirubin 0.3, Aspartate Amino Transf (AST/SGOT) 45H, Alanine Aminotransferase (ALT/SGPT) 56H, Alkaline Phosphatase 98, Total Protein 5.7L, Albumin 2.8L Microbiology 11/21/19 Gram Stain - Final, Resulted 11/21/19 Sputum Culture, Resulted Pending 11/21/19 Blood Culture - Preliminary, Resulted No growth Radiology NAME: JOSEFINA SERVIN [facility] REC#: [id number] PT STATUS: ADM IN : 1950 PHYSICIAN: JENELLE SIMMONS APRN ADMIT DATE: 11/21/19/ICU Signed Date of Exam:11/21/19 CHEST 1 VIEW, AP/PA ONLY INDICATION: Central venous catheter evaluation Portable upright AP view of the chest is obtained. Since the study of earlier in the day, there has been placement of right jugular central venous catheter with tip projecting over the region of right brachiocephalic vein. There is air trapping bilaterally. Coarse interstitial and alveolar densities are seen in both lungs with a central predominance. In addition, there is an approximately 1 cm nodular focus seen within the region of right upper lobe. IMPRESSION: Bilateral infiltrates similar to previous study. There is likely background COPD. There is also question of 1 cm nodular focus in the right upper lobe and consideration could be given to follow-up CT imaging for assessment. Right central venous catheter reaches the level of brachiocephalic vein without pneumothorax. Dictated by: Dictated on workstation # [id number] Dict: 11/21/198 Trans: 11/21/192205 CHELY [id number] Interpreted by: JAVIER COHEN MD Electronically signed by: JAVIER COHEN MD 11/21/192205 ECG Impression ECG Initial ECG Impression: Atrial Fibrillation A/P-Cardiology Assessment/Admission Diagnosis New onset of a-fib with RVR - first diagnosed on EKG of 11-21-2019 Pneumonia - management per medical services HTN COPD Chew tobacco user (quit smoking approx 20 years ago) Thrombocytosis and leukocytosis - management per medical services Discussion and Recomendations New onset of a-fib with RVR - rate improved on Cardizem gtt Anticoagulation for stroke prophylaxis Pneumonia - management per medical services CT today Continue Lovenox for now Thrombocytosis of undetermined etiology - medical services managing Echocardiogram to eval structure and function Monitor lab closely Further recs will be based on hospital course We would like to thank medical services for this consult Clinical Quality Measures DVT/VTE Risk/Contraindication: Risk Factor Score Per Nursin RFS Level Per Nursing on Admit: 2=Moderate CLARY GONZALEZ Nov 22, 2019 10:32
--- NOTE | 2019-11-22 11:07 | Diagnostic Imaging Report ---
PROCEDURE: CT chest with contrast only. TECHNIQUE: Multiple contiguous axial images were obtained through the chest after administration of intravenous contrast. Auto Exposure Controls were utilized during the CT exam to meet ALARA standards for radiation dose reduction. INDICATION: Influenza and/or pneumonia FINDINGS: There is severe bullous emphysematous disease. There is irregular areas of spiculated scarring in both upper lobes left greater than right. There is a 1 cm noncalcified mass in the right middle lobe. This is seen posteriorly posteriorly along the fissure. Additional nodular area is seen just below this measuring 8 mm. There is patchy atelectasis and/or pneumonitis in the left lung base. There is a trace left pleural effusion. There is no pneumothorax. Heart size is normal. There is a 2.8 cm subcarinal lymph node. There is a 1.6 cm precarinal node. There is a 2.1 cm node in the AP window. The thoracic aorta is normal in caliber without evidence of dissection. There are some benign cysts in the liver. Gallbladder is unremarkable. Remainder of intra-abdominal structures are grossly unremarkable. There are degenerative changes in the spine. IMPRESSION: 1. 2 discrete pulmonary nodules in the right lung as well as numerous areas of spiculated scarring. There is also patchy infiltrates in the left lung base. This is all with a background of severe COPD and bullous emphysematous disease. The possibility of neoplasm in either nodule or these areas of spiculation certainly cannot be excluded. Further evaluation with a PET scan is recommended. 2. Pathologically enlarged adenopathy in the AP window, precarinal region and subcarinal region. 3. Benign hepatic cysts. Dictated by: Dictated on workstation # [id number]
--- NOTE | 2019-11-22 11:39 | Progress Note - Hospitalist ---
Subjective HPI/CC On Admission Date Seen by Provider: Nov 22, 2019 Time Seen by Provider: 10:00 CC: Bilateral pneumonia HPI: This is a 69yoWM clinic patient of Dr Pedersen who is known to me since last admit for PNA who presented to the [facility] ER with cough and fever 2 weeks after flu. Patient was found to have elevated wbc with bilateral PNA and thrombocytosis. Patient reports feeling badly and wheezing for the past 3 days. Patient does not wear O2 at home. Subjective/Events-last exam Had an episode of A-FIB with RVR, cardiology consulted, Cardizem drip started. Pt appears to be a little bit improved but very slow progress. Denies any pain. Breathing treatments are helping him. Review of Systems Pulmonary: Dyspnea, Cough Cardiovascular: Palpitations Focused Exam Lactate Level 11/21/19 17:43: Lactic Acid Level 1.28 Objective Exam Vital Signs Vital Signs Date Time Temp Pulse Resp B/P (MAP) Pulse Ox O2 Delivery O2 Flow Rate FiO2 11/22/19 20:00 Nasal Cannula 3.00 11/22/19 19:15 36.9 78 18 112/74 (87) 95 11/22/19 14:20 28 Capillary Refill : Less Than 3 Seconds General Appearance: No Apparent Distress, WD/WN, Chronically ill, Thin Respiratory: Accessory Muscle Use, Crackles, Decreased Breath Sounds, Wheezing Cardiovascular: Irregularly Irregular, Tachycardia Neurologic/Psychiatric: Alert, Oriented x3, No Motor/Sensory Deficits, Normal Mood/Affect Results/Procedures Lab Laboratory Tests 11/22/19 03:17 Patient resulted labs reviewed. Assessment/Plan Assessment and Plan Assess & Plan/Chief Complaint Assessment: PNA bilateral AF w/RVR new onset COPD Leukocytosis Thrombocytosis Plan: Abx IVF Monitor closely AF management Diagnosis/Problems Diagnosis/Problems (1) Severe sepsis Status: Acute (2) Pneumonia (3) Thrombocytosis (4) Leukocytosis (5) COPD (chronic obstructive pulmonary disease) (6) Atrial fibrillation with RVR Clinical Quality Measures DVT/VTE Risk/Contraindication: Risk Factor Score Per Nursin RFS Level Per Nursing on Admit: 2=Moderate BALDOMERO ROSALES DO Nov 22, 2019 11:39
--- NOTE | 2019-11-22 15:59 | NUR ---
"RD ASSESSMENT PMHx: COPD PT INTERACTION: Pt was awake and pleasant during consult for MST score. Pt states current appetite is getting better, as it had been poor prior to admit. Note avg PO intake of 75% x2meal, per chart review. Pt states following a regular diet at home and has no issues with chewing/swallowing food. Pt states some recent issues with nausea prior to admit, but it has resolved. Pt states recent issues with constipation, and that his last BM was 11/21. Note pt not currently on bowel regimen per chart review. Pt staes some recent wt loss, attributing it to working outside during the summer months. Note unable to determine recent wt hx, per chart review. Upon visual exam, pt appears to be adequately nourished with no visible signs of muscle/fat wasting and a BMI of 21.2. Given PO intake, wt hx, and visual exam, pt does not meet criteria for malnutrition per ASPEN guidelines. ABNORMAL NUTRITION-RELATED LAB VALUES LOW: Pro 6.3; alb 3.0 HIGH: BUN 27; glu 153 Est. kcal needs: 0272-8993 kcal | 25-30 kcal/kg Est. Pro needs: 58-73 g Pro | 0.8-1.0 g Pro/kg PES STATEMENT: Given current PO intake, no nutrition diagnosis at this time (NO-1.1) INTERVENTION: Continue with current diet order of 2000mg Na diet. Discontinue current supplementation order of Ensure Enlive with meals TID. Pt PO intake is sufficient to meet needs, and pt does not prefer them. Will continue to follow and reassess as pt needs and status change. MONITOR/EVALUATE: PO Intake; Plan of Care; Hydration Status; Weight Status; Lab Values Andry Jones, MS, RD, LD"
[2019-11-22] MEDS: RT-ALBUTEROL/IPRATROPIUM 3 ML (DUONEB) VIAL INH SCH ×2 (18:27→21:46)
[2019-11-22] MEDS: APIXABAN 5 MG (ELIQUIS) TABLET PO SCH (20:55)
[2019-11-23] MEDS: methylPREDNISolone 40 MG/ML (Solu-MEDROL) VIAL IVP SCH ×4 (00:52→18:39)
[2019-11-23] MEDS: LACTATED RINGERS 1,000 ML IV SCH (00:52)
[2019-11-23] MEDS: RT-ALBUTEROL/IPRATROPIUM 3 ML (DUONEB) VIAL INH SCH ×6 (01:45→22:20)
[2019-11-23] MEDS: PIPERACILLIN/TAZOBACTAM (BULK) 4.5 GM in NS (IVPB) 100 ML IV SCH ×3 (02:22→18:40)
[2019-11-23 02:49] LABS: BASOPHILS % (AUTO) 0 % (0-10); EOSINOPHILS % (AUTO) 0 % (0-10); HEMATOCRIT 32 % (40-54); HEMOGLOBIN 10.6 G/DL (13.3-17.7); LYMPHOCYTES # (AUTO) 0.4 X 10^3 (1.0-4.0); LYMPHOCYTES % (AUTO) 2 % (12-44); MEAN CORPUSCULAR HEMOGLOBIN 30 PG (25-34); MEAN CORPUSCULAR HGB CONC 33 G/DL (32-36); MEAN CORPUSCULAR VOLUME 90 FL (80-99); MEAN PLATELET VOLUME 9.3 FL (7.4-10.4); MONOCYTES # (AUTO) 0.9 X 10^3 (0.0-1.0); MONOCYTES % (AUTO) 4 % (0-12); NEUTROPHILS # (AUTO) 20.5 X 10^3 (1.8-7.8); NEUTROPHILS % (AUTO) 94 % (42-75); PLATELET COUNT 823 10^3/uL (130-400); WHITE BLOOD COUNT 21.7 10^3/uL (4.3-11.0)
[2019-11-23 03:09] LABS: ALANINE AMINOTRANSFERASE 56 U/L (0-55); ALBUMIN 2.8 GM/DL (3.2-4.5); ALKALINE PHOSPHATASE 98 U/L (40-136); BILIRUBIN,TOTAL 0.3 MG/DL (0.1-1.0); BUN/CREATININE RATIO 24; CALCIUM 8.7 MG/DL (8.5-10.1); CARBON DIOXIDE 22 MMOL/L (21-32); CHLORIDE 108 MMOL/L (98-107); CREATININE SERUM 1.04 MG/DL (0.60-1.30); GFR ESTIMATED > 60; GLUCOSE 224 MG/DL (70-105); MAGNESIUM 2.1 MG/DL (1.6-2.4); PHOSPHORUS 2.1 MG/DL (2.3-4.7); POTASSIUM 3.9 MMOL/L (3.6-5.0); SODIUM 139 MMOL/L (135-145); TOTAL PROTEIN 5.7 GM/DL (6.4-8.2)
--- NOTE | 2019-11-23 04:19 | Pulmonary Progress Note ---
Subjective Time Seen by a Provider: 04:14 Sepsis Event Evaluation Height, Weight, BMI Height: '" Weight: lbs. oz. kg; 21.79 BMI Method: Focused Exam Lactate Level 11/21/19 17:43: Lactic Acid Level 1.28 Exam Exam Vital Signs Date Time Temp Pulse Resp B/P (MAP) Pulse Ox O2 Delivery O2 Flow Rate FiO2 11/23/19 01:45 96 Nasal Cannula 3.00 11/22/19 23:15 95 Nasal Cannula 3.00 11/22/19 23:15 36.9 89 17 117/71 (86) 96 Nasal Cannula 3.00 11/22/19 21:51 95 Nasal Cannula 3.00 11/22/19 21:46 95 Nasal Cannula 3.00 11/22/19 21:00 95 Nasal Cannula 3.00 11/22/19 20:00 Nasal Cannula 3.00 11/22/19 19:15 36.9 78 18 112/74 (87) 95 Nasal Cannula 3.00 11/22/19 19:00 70 11/22/19 18:28 97 Nasal Cannula 3.00 11/22/19 16:15 Nasal Cannula 3.00 11/22/19 16:00 74 16 118/71 (87) 96 Nasal Cannula 3.00 11/22/19 15:50 37.1 11/22/19 14:56 95 Nasal Cannula 2.00 11/22/19 14:20 37.6 121 93 28 11/22/19 12:39 101 11/22/19 12:15 Nasal Cannula 3.00 11/22/19 12:00 37.0 11/22/19 12:00 84 32 100/70 (80) 94 Nasal Cannula 3.00 11/22/19 10:03 96 Nasal Cannula 2.00 11/22/19 09:58 96 Nasal Cannula 2.00 11/22/19 08:15 Nasal Cannula 3.00 11/22/19 08:00 36.7 73 18 111/66 (81) 95 Nasal Cannula 3.00 11/22/19 06:46 95 11/22/19 06:00 77 17 115/71 (86) 93 Nasal Cannula 3.00 11/22/19 05:00 89 19 106/73 (84) 93 Nasal Cannula 3.00 I & O 11/23/19 07:00 Intake Total 3380 ml Output Total 1300 ml Balance 2080 ml Height & Weight Height: '" Weight: lbs. oz. kg; 21.79 BMI Method: General Appearance: No Apparent Distress, WD/WN, Chronically ill, Thin HEENT: PERRL/EOMI, Normal ENT Inspection, Pharynx Normal, Moist Mucous Membranes Neck: Full Range of Motion, Normal Inspection, Non Tender Respiratory: Accessory Muscle Use, Crackles, Decreased Breath Sounds, Wheezing Cardiovascular: Irregularly Irregular, Tachycardia Capillary Refill: Less Than 3 Seconds Gastrointestinal: normal bowel sounds, non tender, soft Extremity: Normal Capillary Refill, Normal Inspection, Normal Range of Motion, Non Tender, No Calf Tenderness, No Pedal Edema Neurologic/Psychiatric: Alert, Oriented x3, No Motor/Sensory Deficits, Normal Mood/Affect Skin: Normal Color, Warm/Dry Lymphatic: No Adenopathy Results Lab Laboratory Tests 11/21/19 17:43 11/22/19 03:17 11/23/19 02:30 Assessment/Plan Assessment/Plan Bilateral PNA -Influenza negative -Vanco/Zosyn -Weir cultures pending COPD -Duonebs add pulmicort -Solumedrol -Pt will probably need home 02 upon discharge -Check CT of chest with contrast r/o mass Afib RVR -- new onset last night -Cardizem gtt -IVF -Cardiology following Multiple pulmonary nodules with some spiculation -Pt needs out pt PET scan. KEITH MULLEN DO Nov 23, 2019 04:19
[2019-11-23 04:30] VITALS: BP 110/75
[2019-11-23] MEDS: RT-BUDESONIDE NEBS 0.5 MG/2ML (PULMICORT) AMP INH SCH ×2 (07:26→18:54)
--- NOTE | 2019-11-23 07:51 | Consultation-Cardiology ---
HPI-Cardiology Cardiology Consultation: Date of Consultation 11/22/19 (late entry) Time Seen by a Provider: 09:30 Date of Admission Attending Physician Giselle Sepulveda DO Admitting Physician Shaw Pedersen MD Consulting Physician TANA LUTHER MD, MA, FACP, FACC, FSCAI, CCDS Patient seen on 11/22/19 at 9:30 am; this is late entry for that visit HPI: Chief Complaint: Reason for consultation: New onset a-fib with RVR HPI Mr. Fernando is a 69 year old male who has seth admitted to ICU 12 from the ED. He reports at the end of October 2019 he was diagnosed with influenza. He states he was given Tamiflu. He reports he has had progressive SOB over the course of the last 2 weeks, but on Thursday he developed a fever which persisted off and on till Thursday. He states he has had a frequent dry cough for the last several day. He denies any n/v/d. He reports poor appetite. He reports chest tightness which has been constant for several days. He denies any palpitations, syncope, near syncope or LE swelling. He reports he feels his breathing is not much better than at the time of admission. He does use chew tobacco. Review of Systems-Cardiology Review of Systems Constitutional: chills, fever, malaise Eyes: No vision change Ears/Nose/Throat: No epistaxis, No recent hearing loss Respiratory: As described under HPI Cardiovascular: As described under HPI Gastrointestinal: No constipation, No diarrhea, No nausea, No vomiting Genitourinary: No dysuria Musculoskeletal: no symptoms reported Skin: No rash on exposed areas, No ulcerations on exposed areas Psychiatric/Neurological: No anxiety, No depression, No seizure, No focal weakness, No syncope Hematologic: No bleeding abnormalities TUR-[place] Hx Patient Social History Marrital Status: Employed/Student: retired Alcohol Use: Occasionally Uses Recreational Drug Use: No Smoking Status: Former Smoker Recent Foreign Travel: No Recent Infectious Disease Expo: No Hospitalization with Isolation: Denies Physical Abuse Screen: No Sexual Abuse: No Immunizations Up To Date Tetanus Booster (TDap): Unknown Date of Pneumonia Vaccine: Jul 21, 2017 Past Medical History PMH As described under Assessment. Family Medical History Family Medical History: He reports his mother, brother and sister have had CVA's. No reported family h/o CAD. Family History: Abdominal aortic aneurysm Alzheimer's disease 19 FATHER, , Onset:60 years & older Completed stroke G8 SISTER, Onset:60 years & older FH: blindness 19 FATHER, , Onset:Unknown 19 MOTHER, , Onset:Unknown FH: breast cancer 19 MOTHER, , Onset:40's - 50 FH: colon cancer G8 BROTHER, Onset:60 years & older FH: liver cancer G8 BROTHER, Onset:60 years & older Allergies and Home Medications Allergies Coded Allergies: No Known Drug Allergies (Unverified , 11/21/19) Home Medications Aspirin 325 Mg Tablet.dr, 325 MG PO DAILY, (Reported) Cetirizine HCl 10 Mg Tablet, 10 MG PO DAILY, (Reported) Fluticasone/Vilanterol 1 Each Blst.w.dev, 1 PUFF INH DAILY, (Reported) Guaifenesin 1,200 Mg Tab.er.12h, 1,200 MG PO DAILY, (Reported) Ipratropium/Albuterol Sulfate 3 Ml Ampul.neb, 3 ML NEB QID PRN for SHORTNESS OF BREATH, (Reported) Multivitamin 1 Each Tablet, 1 TAB PO DAILY, (Reported) Patient Home Medication List Home Medication List Reviewed: Yes Physical Exam-Cardiology Physical Exam Vital Signs/I&O 11/22/19 11/22/19 11/22/19 11/22/19 20:00 21:00 21:46 21:51 Pulse Ox 95 95 95 O2 Delivery Nasal Cannula Nasal Cannula Nasal Cannula Nasal Cannula O2 Flow Rate 3.00 3.00 3.00 3.00 11/22/19 11/22/19 11/23/19 11/23/19 23:15 23:15 01:18 01:45 Temp 36.9 Pulse 89 76 Resp 17 B/P (MAP) 117/71 (86) Pulse Ox 96 95 96 O2 Delivery Nasal Cannula Nasal Cannula Nasal Cannula O2 Flow Rate 3.00 3.00 3.00 11/23/19 11/23/19 11/23/19 11/23/19 04:00 04:30 07:27 07:31 Temp 37.2 Pulse 77 Resp 21 B/P (MAP) 110/75 (87) Pulse Ox 95 94 94 95 O2 Delivery Nasal Cannula Nasal Cannula Nasal Cannula Nasal Cannula O2 Flow Rate 3.00 3.00 3.00 3.00 11/23/19 00:00 Intake Total 2380 ml Output Total 1300 ml Balance 1080 ml Capillary Refill : Less Than 3 Seconds Constitutional: AAO x 3, well-developed, well-nourished HEENT: PERRL, hearing is well preserved, oral hygience is good Neck: No carotid bruit; carotid pulses are 2 + bilaterally Respiratory: rhonchi (scattered), other (diminished throughout; prolonged exp; exp wheezes) Cardiovascular: irregularly irregular; No JVD; S1 and S2 Gastrointestinal: No tender; soft, round, audible bowel sounds Extremities: no lower extremity edema bilateral Neurologic/Psychiatric: other (moves all extremities) Skin: No rash on exposed areas, No ulcerations on exposed areas Data Review Labs Laboratory Tests 11/23/19 02:30: White Blood Count 21.7H, Red Blood Count 3.58L, Hemoglobin 10.6L, Hematocrit 32L , Mean Corpuscular Volume 90, Mean Corpuscular Hemoglobin 30, Mean Corpuscular Hemoglobin Concent 33, Red Cell Distribution Width 15.0H, Platelet Count 823H, Mean Platelet Volume 9.3, Neutrophils (%) (Auto) 94H, Lymphocytes (%) (Auto) 2L, Monocytes (%) (Auto) 4, Eosinophils (%) (Auto) 0, Basophils (%) (Auto) 0, Neutrophils # (Auto) 20.5H, Lymphocytes # (Auto) 0.4L, Monocytes # (Auto) 0.9, Eosinophils # (Auto) 0.0, Basophils # (Auto) 0.0, Sodium Level 139, Potassium Level 3.9, Chloride Level 108H, Carbon Dioxide Level 22, Anion Gap 9, Blood Urea Nitrogen 25H, Creatinine 1.04, Estimat Glomerular Filtration Rate > 60, BUN/Creatinine Ratio 24, Glucose Level 224H, Calcium Level 8.7, Corrected C alcium 9.7, Phosphorus Level 2.1L, Magnesium Level 2.1, Total Bilirubin 0.3, Aspartate Amino Transf (AST/SGOT) 45H, Alanine Aminotransferase (ALT/SGPT) 56H, Alkaline Phosphatase 98, Total Protein 5.7L, Albumin 2.8L Microbiology 11/21/19 Gram Stain - Final, Resulted 11/21/19 Sputum Culture, Resulted Pending 11/21/19 Blood Culture - Preliminary, Resulted No growth Laboratory Tests 11/21/19 17:43 11/22/19 03:17 11/23/19 02:30 A/P-Cardiology Assessment/Admission Diagnosis New onset of a-fib with RVR - first diagnosed on EKG of 11-21-2019 Pneumonia - management is by the Hospitalist and Pulm Services HTN COPD Chew tobacco user (quit smoking approx 20 years ago) Thrombocytosis and leukocytosis - management is by the Hospitalist Service Discussion and Recomendations * I had a detailed conversation with him regarding possible etiologies of A fib and the treatment options * Plan currently is to provide rate control and stroke prophylaxis * Change dilt to oral * Change anticoag to ora * Echo * New onset of a-fib with RVR - rate improved on Cardizem gtt * Further recs will be based on hospital course * Monitor labs closely * We thank Med and Pulm Svces for this cardiac consult Patient seen on 11/22/19 at 9:30 am; this is late entry for that visit Clinical Quality Measures DVT/VTE Risk/Contraindication: Risk Factor Score Per Nursin RFS Level Per Nursing on Admit: 2=Moderate TANA LUTHER MD FACP FACC CCDS Nov 23, 2019 07:51
[2019-11-23] MEDS: APIXABAN 5 MG (ELIQUIS) TABLET PO SCH ×2 (07:55→20:42)
[2019-11-23] MEDS: VANCOMYCIN INJECTION 1,000 MG in NS (IVPB) 250 ML IV SCH ×2 (07:56→20:42)
[2019-11-23 08:00] VITALS: BP 142/73
--- NOTE | 2019-11-23 08:01 | Progress Note - Cardiology ---
Cardiology SOAP Progress Note Subjective: Still short of breath Cough productive of small quantities of yellowish sputum Gen malaise No cp or palp or syncope No n/v/d Objective: I&O/Vital Signs 11/22/19 11/22/19 11/22/19 11/22/19 20:00 21:00 21:46 21:51 Pulse Ox 95 95 95 O2 Delivery Nasal Cannula Nasal Cannula Nasal Cannula Nasal Cannula O2 Flow Rate 3.00 3.00 3.00 3.00 11/22/19 11/22/19 11/23/19 11/23/19 23:15 23:15 01:18 01:45 Temp 36.9 Pulse 89 76 Resp 17 B/P (MAP) 117/71 (86) Pulse Ox 96 95 96 O2 Delivery Nasal Cannula Nasal Cannula Nasal Cannula O2 Flow Rate 3.00 3.00 3.00 11/23/19 11/23/19 11/23/19 11/23/19 04:00 04:30 07:27 07:31 Temp 37.2 Pulse 77 Resp 21 B/P (MAP) 110/75 (87) Pulse Ox 95 94 94 95 O2 Delivery Nasal Cannula Nasal Cannula Nasal Cannula Nasal Cannula O2 Flow Rate 3.00 3.00 3.00 3.00 11/23/19 00:00 Intake Total 2380 ml Output Total 1300 ml Balance 1080 ml Constitutional: AAO x 3, well-developed, well-nourished Respiratory: rhonchi (scattered), other (diminished throughout; prolonged exp; exp wheezes) Cardiovascular: irregularly irregular; No JVD; S1 and S2 Gastrointestional: No tender; soft, round, audible bowel sounds Extremities: no lower extremity edema bilateral Neurologic/Psychiatric: other (moves all extremities) Skin: No rash on exposed areas, No ulcerations on exposed areas Results/Procedures: Labs Laboratory Tests 11/23/19 02:30: White Blood Count 21.7H, Red Blood Count 3.58L, Hemoglobin 10.6L, Hematocrit 32L , Mean Corpuscular Volume 90, Mean Corpuscular Hemoglobin 30, Mean Corpuscular Hemoglobin Concent 33, Red Cell Distribution Width 15.0H, Platelet Count 823H, Mean Platelet Volume 9.3, Neutrophils (%) (Auto) 94H, Lymphocytes (%) (Auto) 2L, Monocytes (%) (Auto) 4, Eosinophils (%) (Auto) 0, Basophils (%) (Auto) 0, Neutrophils # (Auto) 20.5H, Lymphocytes # (Auto) 0.4L, Monocytes # (Auto) 0.9, Eosinophils # (Auto) 0.0, Basophils # (Auto) 0.0, Sodium Level 139, Potassium Level 3.9, Chloride Level 108H, Carbon Dioxide Level 22, Anion Gap 9, Blood Urea Nitrogen 25H, Creatinine 1.04, Estimat Glomerular Filtration Rate > 60, BUN/Creatinine Ratio 24, Glucose Level 224H, Calcium Level 8.7, Corrected Calcium 9.7, Phosphorus Level 2.1L, Magnesium Level 2.1, Total Bilirubin 0.3, Aspartate Amino Transf (AST/SGOT) 45H, Alanine Aminotransferase (ALT/SGPT) 56H, Alkaline Phosphatase 98, Total Protein 5.7L, Albumin 2.8L Microbiology 11/21/19 Gram Stain - Final, Resulted 11/21/19 Sputum Culture, Resulted Pending 11/21/19 Blood Culture - Preliminary, Resulted No growth A/P: Assessment: New onset of a-fib with RVR - first diagnosed on EKG of 11-21-2019 Echo of 11/22/19: LVEF 50-55%, RVSP 30 mmHg Pneumonia - management is by the Hospitalist and Pulm Services HTN COPD Chew tobacco user (quit smoking approx 20 years ago) Thrombocytosis and leukocytosis - management is by the Hospitalist Service Plan: * I had a detailed conversation with him regarding possible etiologies of A fib and the treatment options * Plan currently is to provide rate control and stroke prophylaxis * Increase dilt * Continue apixaban * I discussed his echo results with him and answered questions * Monitor labs closely TANA LUTHER MD FACP FAC CCDS Nov 23, 2019 08:01
--- NOTE | 2019-11-23 08:37 | Diagnostic Imaging Report ---
INDICATION: Dyspnea. Comparison made with prior examination 11/21/2019. FINDINGS: The heart size is normal. There are chronic interstitial infiltrates in lung bases left greater than right. There is some left perihilar infiltrate. There is no pneumothorax. Mediastinum is unremarkable. There is right internal jugular central venous catheter which has its tip in superior vena cava. IMPRESSION: Chronic appearing bibasilar interstitial infiltrates left greater than right. Slight improvement in the left perihilar infiltrate. Background COPD. Dictated by: Dictated on workstation # [id number]
--- NOTE | 2019-11-23 11:52 | Progress Note - Hospitalist ---
Subjective HPI/CC On Admission Date Seen by Provider: Nov 23, 2019 Time Seen by Provider: 10:30 CC: Bilateral pneumonia HPI: This is a 69yoWM clinic patient of Dr Pedersen who is known to me since last admit for PNA who presented to the [facility] ER with cough and fever 2 weeks after flu. Patient was found to have elevated wbc with bilateral PNA and thrombocytosis. Patient reports feeling badly and wheezing for the past 3 days. Patient does not wear O2 at home. Subjective/Events-last exam Pt feels much better Had a BM yesterday O2 maintaining and he does not have that at home Transferring to 4th floor Overall very improved Review of Systems General: Fatigue Pulmonary: Dyspnea, Cough Focused Exam Lactate Level 11/21/19 17:43: Lactic Acid Level 1.28 Objective Exam Vital Signs Vital Signs Date Time Temp Pulse Resp B/P (MAP) Pulse Ox O2 Delivery O2 Flow Rate FiO2 11/23/19 19:17 36.7 90 22 94 Nasal Cannula 2.00 11/22/19 14:20 28 Capillary Refill : Less Than 3 Seconds General Appearance: No Apparent Distress, WD/WN, Chronically ill, Thin Respiratory: Chest Non Tender, No Accessory Muscle Use, No Respiratory Distress, Crackles, Decreased Breath Sounds Cardiovascular: Regular Rate, Rhythm, No Edema, No Gallop, No JVD, No Murmur, Normal Peripheral Pulses Results/Procedures Lab Laboratory Tests 11/23/19 02:30 Patient resulted labs reviewed. Assessment/Plan Assessment and Plan Assess & Plan/Chief Complaint Assessment: PNA bilateral AF w/RVR new onset COPD Leukocytosis Thrombocytosis Plan: Abx IVF Monitor closely AF management Diagnosis/Problems Diagnosis/Problems (1) Severe sepsis Status: Acute (2) Pneumonia (3) Thrombocytosis (4) Leukocytosis (5) COPD (chronic obstructive pulmonary disease) (6) Atrial fibrillation with RVR Clinical Quality Measures DVT/VTE Risk/Contraindication: Risk Factor Score Per Nursin RFS Level Per Nursing on Admit: 2=Moderate BALDOMERO ROSALES DO Nov 23, 2019 11:52
[2019-11-23 12:00] VITALS: BP 124/66
[2019-11-23] MEDS ORDERED: dilTIAZem DRIP 125 MG/125 ML DRIP IV SCH (14:15)
[2019-11-23 16:15] VITALS: BP 117/77
[2019-11-23 20:00] VITALS: BP 140/74
[2019-11-23 23:30] VITALS: BP 118/81
[2019-11-24] VITALS (7 sets, daily range): BP systolic 125–158; BP diastolic 66–81
[2019-11-24] MEDS: methylPREDNISolone 40 MG/ML (Solu-MEDROL) VIAL IVP SCH ×4 (00:56→20:16)
[2019-11-24] MEDS: RT-ALBUTEROL/IPRATROPIUM 3 ML (DUONEB) VIAL INH SCH ×6 (02:55→21:52)
[2019-11-24] MEDS: PIPERACILLIN/TAZOBACTAM (BULK) 4.5 GM in NS (IVPB) 100 ML IV SCH ×3 (03:26→18:59)
[2019-11-24 03:35] LABS: BASOPHILS % (AUTO) 0 % (0-10); EOSINOPHILS % (AUTO) 0 % (0-10); HEMATOCRIT 33 % (40-54); LYMPHOCYTES # (AUTO) 0.3 X 10^3 (1.0-4.0); LYMPHOCYTES % (AUTO) 1 % (12-44); MEAN CORPUSCULAR HEMOGLOBIN 30 PG (25-34); MEAN CORPUSCULAR HGB CONC 33 G/DL (32-36); MEAN CORPUSCULAR VOLUME 90 FL (80-99); MEAN PLATELET VOLUME 9.5 FL (7.4-10.4); MONOCYTES # (AUTO) 0.6 X 10^3 (0.0-1.0); MONOCYTES % (AUTO) 3 % (0-12); NEUTROPHILS # (AUTO) 22.5 X 10^3 (1.8-7.8); NEUTROPHILS % (AUTO) 96 % (42-75); PLATELET COUNT 857 10^3/uL (130-400); WHITE BLOOD COUNT 23.4 10^3/uL (4.3-11.0)
[2019-11-24 04:09] LABS: ALANINE AMINOTRANSFERASE 122 U/L (0-55); ALKALINE PHOSPHATASE 113 U/L (40-136); BILIRUBIN,TOTAL 0.3 MG/DL (0.1-1.0); BUN/CREATININE RATIO 30; CARBON DIOXIDE 24 MMOL/L (21-32); CHLORIDE 105 MMOL/L (98-107); CREATININE SERUM 0.86 MG/DL (0.60-1.30); GFR ESTIMATED > 60; GLUCOSE 154 MG/DL (70-105); MAGNESIUM 2.2 MG/DL (1.6-2.4); PHOSPHORUS 2.7 MG/DL (2.3-4.7); SODIUM 138 MMOL/L (135-145); TOTAL PROTEIN 5.9 GM/DL (6.4-8.2)
--- NOTE | 2019-11-24 05:06 | Pulmonary Progress Note ---
Subjective Time Seen by a Provider: 08:52 Subjective/Events-last exam Pt feels improved. Sepsis Event Evaluation Height, Weight, BMI Height: '" Weight: lbs. oz. kg; 21.79 BMI Method: Focused Exam Lactate Level 11/21/19 17:43: Lactic Acid Level 1.28 Exam Exam Vital Signs Date Time Temp Pulse Resp B/P (MAP) Pulse Ox O2 Delivery O2 Flow Rate FiO2 11/24/19 04:23 36.7 82 17 125/76 (92) 94 Nasal Cannula 2.00 11/24/19 04:20 Nasal Cannula 2.00 11/24/19 02:56 Nasal Cannula 2.00 11/24/19 01:00 120 11/24/19 00:20 Nasal Cannula 2.00 11/23/19 23:30 36.7 87 20 118/81 (93) 97 Nasal Cannula 2.00 11/23/19 22:20 93 Nasal Cannula 2.00 11/23/19 20:30 Nasal Cannula 2.00 11/23/19 20:30 Nasal Cannula 2.00 11/23/19 20:00 37.0 98 14 140/74 (96) 93 Nasal Cannula 2.00 11/23/19 19:17 36.7 90 22 94 Nasal Cannula 2.00 11/23/19 19:04 98 Nasal Cannula 2.00 11/23/19 19:00 76 11/23/19 18:54 96 Nasal Cannula 3.00 11/23/19 16:15 77 18 117/77 (90) Nasal Cannula 3.00 11/23/19 16:00 95 Nasal Cannula 3.00 11/23/19 15:50 95 Nasal Cannula 3.00 11/23/19 12:42 95 11/23/19 12:00 95 Nasal Cannula 3.00 11/23/19 12:00 37.0 85 20 124/66 (85) 95 Nasal Cannula 3.00 11/23/19 10:56 93 Nasal Cannula 3.00 11/23/19 09:00 95 Nasal Cannula 3.00 11/23/19 08:00 95 Nasal Cannula 3.00 11/23/19 08:00 112 16 142/73 (96) Nasal Cannula 3.00 11/23/19 07:31 95 Nasal Cannula 3.00 11/23/19 07:27 94 Nasal Cannula 3.00 11/23/19 06:37 100 I & O 11/24/19 07:00 Intake Total 2320 ml Output Total 1950 ml Balance 370 ml Height & Weight Height: '" Weight: lbs. oz. kg; 21.79 BMI Method: General Appearance: No Apparent Distress, WD/WN, Chronically ill, Thin HEENT: PERRL/EOMI, Normal ENT Inspection, Pharynx Normal, Moist Mucous Membranes Neck: Full Range of Motion, Normal Inspection, Non Tender Respiratory: Chest Non Tender, No Accessory Muscle Use, No Respiratory Distress, Crackles, Decreased Breath Sounds Cardiovascular: Regular Rate, Rhythm, No Edema, No Gallop, No JVD, No Murmur, Normal Peripheral Pulses Capillary Refill: Less Than 3 Seconds Gastrointestinal: normal bowel sounds, non tender, soft Extremity: Normal Capillary Refill, Normal Inspection, Normal Range of Motion, Non Tender, No Calf Tenderness, No Pedal Edema Neurologic/Psychiatric: Alert, Oriented x3, No Motor/Sensory Deficits, Normal Mood/Affect Skin: Normal Color, Warm/Dry Lymphatic: No Adenopathy Results Lab Laboratory Tests 11/23/19 02:30 11/24/19 03:29 Assessment/Plan Assessment/Plan Bilateral PNA -Influenza negative -Vanco/Zosyn -Weir cultures pending COPD -Duonebs add pulmicort -Solumedrol -Pt will probably need home 02 upon discharge -Check CT of chest with contrast r/o mass Afib RVR -- new onset last night -Cardizem PO -IVF -Cardiology following Multiple pulmonary nodules with some spiculation -Pt needs out pt PET scan. Thrombcytosis/p KEITH MULLEN DO Nov 24, 2019 05:06
[2019-11-24] MEDS: RT-BUDESONIDE NEBS 0.5 MG/2ML (PULMICORT) AMP INH SCH ×2 (07:52→18:14)
[2019-11-24] MEDS: VANCOMYCIN INJECTION 1,000 MG in NS (IVPB) 250 ML IV SCH ×2 (07:59→20:16)
[2019-11-24] MEDS: LORATADINE (CLARITIN) 10 MG TAB PO SCH (07:59)
[2019-11-24] MEDS: APIXABAN 5 MG (ELIQUIS) TABLET PO SCH ×2 (08:00→20:16)
[2019-11-24] MEDS: guaiFENesin (MUCINEX) 600 MG TAB PO SCH (08:00)
--- NOTE | 2019-11-24 08:16 | Diagnostic Imaging Report ---
Portable erect AP chest at 237 hours. INDICATION: Shortness of breath. FINDINGS: The heart size is within normal limits and stable when compared to 11/23/2019. The bibasilar interstitial infiltrates and the left perihilar infiltrates seen on the prior study are again evident and unchanged. The lungs are otherwise generally clear. There is no significant pleural effusion. The mediastinum is not widened. The osseous structures are intact. The right-sided Port-A-Cath remains in good position. IMPRESSION: Stable chest. There has been no adverse change since the prior exam. Dictated by: Dictated on workstation # [id number]
[2019-11-24] MEDS ORDERED: NON-FORMULARY MEDICATION 1 EA EA (Cetirizine HCl 10 MG) PO SCH (09:00)
[2019-11-24] MEDS ORDERED: NON-FORMULARY MEDICATION 1 EA EA (Guaifenesin (Mucinex) 1,200 MG) PO SCH (09:00)
--- NOTE | 2019-11-24 09:10 | NUR ---
Report received from Zainab STORY RN
--- NOTE | 2019-11-24 09:17 | Progress Note - Cardiology ---
Cardiology SOAP Progress Note Subjective: Sitting up in the side of the bed. Reports continued SOB with lose cough. Reports HR early this morning when up to the commode was 160. He reports he feels his HR has been elevated. Reports mild bilat LE swelling. Objective: I&O/Vital Signs 11/24/19 11/24/19 11/24/19 11/24/19 07:00 07:52 07:59 08:00 Pulse 84 98 Resp 14 B/P (MAP) 140/77 (98) Pulse Ox 94 O2 Delivery Nasal Cannula Nasal Cannula Nasal Cannula O2 Flow Rate 2.00 2.00 2.00 11/24/19 11/24/19 11/24/19 11/24/19 08:00 09:00 11:49 12:00 Pulse Ox 95 95 95 O2 Delivery Nasal Cannula Nasal Cannula Nasal Cannula Nasal Cannula O2 Flow Rate 2.00 2.00 2.00 2.00 11/24/19 11/24/19 11/24/19 11/24/19 12:00 12:15 15:07 16:00 Temp 36.5 Pulse 80 99 Resp 20 B/P (MAP) 133/75 (94) Pulse Ox 93 93 O2 Delivery Nasal Cannula Nasal Cannula Nasal Cannula O2 Flow Rate 2.00 2.00 2.00 11/24/19 16:00 Temp 36.8 Pulse 85 Resp 18 B/P (MAP) 145/66 (92) O2 Delivery Nasal Cannula O2 Flow Rate 2.00 11/24/19 00:00 Intake Total 1470 ml Output Total 850 ml Balance 620 ml Constitutional: AAO x 3, well-developed, well-nourished Respiratory: rhonchi (scattered), other (diminished throughout; prolonged exp; exp wheezes) Cardiovascular: irregularly irregular; No JVD; S1 and S2 Gastrointestional: No tender; soft, round, audible bowel sounds Extremities: no lower extremity edema bilateral Neurologic/Psychiatric: other (moves all extremities) Skin: No rash on exposed areas, No ulcerations on exposed areas Results/Procedures: Labs Laboratory Tests 11/24/19 03:29: White Blood Count 23.4H, Red Blood Count 3.70L, Hemoglobin 11.0L, Hematocrit 33L , Mean Corpuscular Volume 90, Mean Corpuscular Hemoglobin 30, Mean Corpuscular Hemoglobin Concent 33, Red Cell Distribution Width 15.0H, Platelet Count 857H, Mean Platelet Volume 9.5, Neutrophils (%) (Auto) 96H, Lymphocytes (%) (Auto) 1L, Monocytes (%) (Auto) 3, Eosinophils (%) (Auto) 0, Basophils (%) (Auto) 0, Neutrophils # (Auto) 22.5H, Lymphocytes # (Auto) 0.3L, Monocytes # (Auto) 0.6, Eosinophils # (Auto) 0.0, Basophils # (Auto) 0.0, Sodium Level 138, Potassium Level 4.0, Chloride Level 105, Carbon Dioxide Level 24, Anion Gap 9, Blood Urea Nitrogen 26H, Creatinine 0.86, Estimat Glomerular Filtration Rate > 60, BUN/Creatinine Ratio 30, Glucose Level 154H, Calcium Level 9.0, Corrected Calcium 9.8, Phosphorus Level 2.7, Magnesium Level 2.2, Total Bilirubin 0.3, Aspartate Amino Transf (AST/SGOT) 66H, Alanine Aminotransferase (ALT/SGPT) 122H, Alkaline Phosphatase 113, Total Protein 5.9L, Albumin 3.0L Microbiology 11/21/19 Gram Stain - Final, Resulted 11/21/19 Sputum Culture - Preliminary, Resulted Culture In Progress 11/21/19 Blood Culture - Preliminary, Resulted Staph, Coag Neg (REACTOR OPERATOR) See Comments A/P: Assessment: New onset of a-fib with RVR - first diagnosed on EKG of 11-21-2019 Echo of 11/22/19: LVEF 50-55%, RVSP 30 mmHg Pneumonia - management is by the Hospitalist and Pulm Services Elevated liver enzymes prob secondary to hepatic congestion d/t vol overload HTN COPD Chew tobacco user (quit smoking approx 20 years ago) Thrombocytosis and leukocytosis - management is by the Hospitalist Service Plan: * Prob vol overload; weight increase * Elevated liver enzymes prob d/t hepatic congestion - give IV Lasix * Plan currently is to provide rate control and stroke prophylaxis * HR remains not well controlled even with increase dose of Cardizem CD * Start Toprol XL for rate control * Continue apixaban * Monitor labs closely CLARY GONZALEZ Nov 24, 2019 09:17
--- NOTE | 2019-11-24 09:20 | NUR ---
pt arrived to floor from ICU, pt oriented x4, call light in reach. Pt denies needs at this time, will continue to monitor.
[2019-11-24] MEDS ORDERED: FUROSEMIDE 40 MG/4 ML INJ (LASIX) IVP NR (09:30)
[2019-11-24] MEDS ORDERED: meTOproloL SUCCINATE 50 MG (TOPROL XL) TAB PO NR (09:30)
--- NOTE | 2019-11-24 11:27 | Progress Note - Hospitalist ---
Subjective HPI/CC On Admission Date Seen by Provider: Nov 24, 2019 Time Seen by Provider: 10:30 CC: Bilateral pneumonia HPI: This is a 69yoWM clinic patient of Dr Pedersen who is known to me since last admit for PNA who presented to the [facility] ER with cough and fever 2 weeks after flu. Patient was found to have elevated wbc with bilateral PNA and thrombocytosis. Patient reports feeling badly and wheezing for the past 3 days. Patient does not wear O2 at home. Subjective/Events-last exam Pt feels like he is having A-FIB with RVR periodically and he has sensed that for about six weeks on and off. Initiated a home O2 eval, likely going home tomorrow, Had a BM already. Very dizzy at times. Lungs much improved. Review of Systems Pulmonary: Dyspnea Cardiovascular: Palpitations Focused Exam Lactate Level Objective Exam Vital Signs Vital Signs Date Time Temp Pulse Resp B/P (MAP) Pulse Ox O2 Delivery O2 Flow Rate FiO2 11/24/19 20:00 37.3 92 20 158/81 (106) Nasal Cannula 1.00 11/24/19 18:14 93 11/22/19 14:20 28 Capillary Refill : Less Than 3 Seconds General Appearance: No Apparent Distress, WD/WN, Chronically ill, Thin Respiratory: No Accessory Muscle Use, No Respiratory Distress, Crackles, Rales, Wheezing Cardiovascular: Regular Rate, Rhythm Results/Procedures Lab Laboratory Tests 11/24/19 03:29 Patient resulted labs reviewed. Assessment/Plan Assessment and Plan Assess & Plan/Chief Complaint Assessment: PNA bilateral AF w/RVR new onset COPD Leukocytosis Thrombocytosis Plan: Abx IVF Monitor closely AF management Tely Diagnosis/Problems Diagnosis/Problems (1) Severe sepsis Status: Acute (2) Pneumonia (3) Thrombocytosis (4) Leukocytosis (5) COPD (chronic obstructive pulmonary disease) (6) Atrial fibrillation with RVR Clinical Quality Measures DVT/VTE Risk/Contraindication: Risk Factor Score Per Nursin RFS Level Per Nursing on Admit: 2=Moderate BALDOMERO ROSALES DO Nov 24, 2019 11:27
--- NOTE | 2019-11-24 11:35 | Progress Note - Cardiology ---
Cardiology SOAP Progress Note Subjective: Still short of breath with mild activity No cp or palp or syncope Gen malaise present No n/v/d Objective: I&O/Vital Signs 11/24/19 11/24/19 11/24/19 11/24/19 00:20 01:00 02:56 04:00 Pulse 120 87 Resp 19 B/P (MAP) 125/76 (92) Pulse Ox 95 O2 Delivery Nasal Cannula Nasal Cannula Nasal Cannula O2 Flow Rate 2.00 2.00 2.00 11/24/19 11/24/19 11/24/19 11/24/19 04:20 04:23 07:00 07:52 Temp 36.7 Pulse 82 84 Resp 17 B/P (MAP) 125/76 (92) Pulse Ox 94 94 O2 Delivery Nasal Cannula Nasal Cannula Nasal Cannula O2 Flow Rate 2.00 2.00 2.00 11/24/19 11/24/19 11/24/19 11/24/19 07:59 08:00 08:00 09:00 Pulse 98 Resp 14 B/P (MAP) 140/77 (98) Pulse Ox 95 O2 Delivery Nasal Cannula Nasal Cannula Nasal Cannula Nasal Cannula O2 Flow Rate 2.00 2.00 2.00 2.00 11/24/19 00:00 Intake Total 1470 ml Output Total 850 ml Balance 620 ml Constitutional: AAO x 3, well-developed, well-nourished Respiratory: rhonchi (scattered), other (diminished throughout; prolonged exp; exp wheezes) Cardiovascular: irregularly irregular; No JVD; S1 and S2 Gastrointestional: No tender; soft, round, audible bowel sounds Extremities: no lower extremity edema bilateral Neurologic/Psychiatric: other (moves all extremities) Skin: No rash on exposed areas, No ulcerations on exposed areas Results/Procedures: Labs Laboratory Tests 11/24/19 03:29: White Blood Count 23.4H, Red Blood Count 3.70L, Hemoglobin 11.0L, Hematocrit 33L , Mean Corpuscular Volume 90, Mean Corpuscular Hemoglobin 30, Mean Corpuscular Hemoglobin Concent 33, Red Cell Distribution Width 15.0H, Platelet Count 857H, Mean Platelet Volume 9.5, Neutrophils (%) (Auto) 96H, Lymphocytes (%) (Auto) 1L, Monocytes (%) (Auto) 3, Eosinophils (%) (Auto) 0, Basophils (%) (Auto) 0, Neutrophils # (Auto) 22.5H, Lymphocytes # (Auto) 0.3L, Monocytes # (Auto) 0.6, Eosinophils # (Auto) 0.0, Basophils # (Auto) 0.0, Sodium Level 138, Potassium Level 4.0, Chloride Level 105, Carbon Dioxide Level 24, Anion Gap 9, Blood Urea Nitrogen 26H, Creatinine 0.86, Estimat Glomerular Filtration Rate > 60, BUN/Creatinine Ratio 30, Glucose Level 154H, Calcium Level 9.0, Corrected Calcium 9.8, Phosphorus Level 2.7, Magnesium Level 2.2, Total Bilirubin 0.3, Aspartate Amino Transf (AST/SGOT) 66H, Alanine Aminotransferase (ALT/SGPT) 122H, Alkaline Phosphatase 113, Total Protein 5.9L, Albumin 3.0L Microbiology 11/21/19 Gram Stain - Final, Resulted 11/21/19 Sputum Culture - Preliminary, Resulted Culture In Progress 11/21/19 Blood Culture - Preliminary, Resulted Staph, Coag 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) See Comments Laboratory Tests 11/23/19 02:30 11/24/19 03:29 A/P: Assessment: New onset of a-fib with RVR - first diagnosed on EKG of 11-21-2019 Echo of 11/22/19: LVEF 50-55%, RVSP 30 mmHg Pneumonia - management is by the Hospitalist and Pulm Services Elevated liver enzymes prob secondary to hepatic congestion d/t vol overload HTN COPD Chew tobacco user (quit smoking approx 20 years ago) Thrombocytosis and leukocytosis - management is by the Hospitalist Service Plan: * Multiple issue addressed * Prob vol overload: weight-increase and elevated liver enzymes prob d/t hepatic congestion - give IV Lasix * Plan currently is to provide rate control and stroke prophylaxis * HR remains not well controlled even with increase dose of Cardizem CD * Start Toprol XL for rate control * Continue apixaban * Monitor labs closely * I spoke with him in detail and answered CV-related questions TANA LUTHER MD FACP FAC CCDS Nov 24, 2019 11:35
--- NOTE | 2019-11-24 15:01 | NUR ---
RT spoke with RN about patients O2 Qualification. RN stated that he wasn't sure when the patient would be leaving due to having Heart issues going on at this time. RN said it wouldn't be a bad idea to wait to do the O2 qualification since patient is extremely SOB and being tachycardic. THIS WAS CHARTED BY APARNA TY ON THE WRONG PT. THIS RT IS CORRECTING THE CHARTING FOR HER.
[2019-11-25] MEDS: methylPREDNISolone 40 MG/ML (Solu-MEDROL) VIAL IVP SCH ×3 (01:02→14:08)
[2019-11-25] MEDS: RT-ALBUTEROL/IPRATROPIUM 3 ML (DUONEB) VIAL INH SCH ×2 (02:36→07:29)
[2019-11-25] MEDS: PIPERACILLIN/TAZOBACTAM (BULK) 4.5 GM in NS (IVPB) 100 ML IV SCH ×2 (03:22→10:32)
[2019-11-25 04:00] VITALS: BP 133/90
[2019-11-25 05:17] LABS: BASOPHILS % (AUTO) 0 % (0-10); EOSINOPHILS % (AUTO) 0 % (0-10); HEMATOCRIT 37 % (40-54); HEMOGLOBIN 12.1 G/DL (13.3-17.7); LYMPHOCYTES # (AUTO) 0.4 X 10^3 (1.0-4.0); LYMPHOCYTES % (AUTO) 2 % (12-44); MEAN CORPUSCULAR HEMOGLOBIN 30 PG (25-34); MEAN CORPUSCULAR HGB CONC 33 G/DL (32-36); MEAN CORPUSCULAR VOLUME 89 FL (80-99); MEAN PLATELET VOLUME 9.3 FL (7.4-10.4); MONOCYTES # (AUTO) 0.5 X 10^3 (0.0-1.0); MONOCYTES % (AUTO) 2 % (0-12); NEUTROPHILS % (AUTO) 96 % (42-75); RED CELL DISTRIBUTION WIDTH 15.1 % (10.0-14.5); WHITE BLOOD COUNT 23.9 10^3/uL (4.3-11.0)
[2019-11-25 05:18] LABS: PLATELET COUNT 1056 10^3/uL (130-400)
[2019-11-25 05:33] LABS: ALANINE AMINOTRANSFERASE 151 U/L (0-55); ALBUMIN 3.1 GM/DL (3.2-4.5); ALKALINE PHOSPHATASE 114 U/L (40-136); BILIRUBIN,TOTAL 0.3 MG/DL (0.1-1.0); BUN/CREATININE RATIO 27; CALCIUM 9.1 MG/DL (8.5-10.1); CARBON DIOXIDE 28 MMOL/L (21-32); CHLORIDE 102 MMOL/L (98-107); CREATININE SERUM 0.93 MG/DL (0.60-1.30); GFR ESTIMATED > 60; GLUCOSE 165 MG/DL (70-105); MAGNESIUM 2.2 MG/DL (1.6-2.4); PHOSPHORUS 2.7 MG/DL (2.3-4.7); SODIUM 141 MMOL/L (135-145); TOTAL PROTEIN 6.1 GM/DL (6.4-8.2)
--- NOTE | 2019-11-25 05:35 | NUR ---
Received call for critical result: Platelets = [id number]. Notified Dr. Aparicio, no new orders this time.
--- NOTE | 2019-11-25 07:26 | Diagnostic Imaging Report ---
CHEST 1 VIEW, AP/PA ONLY Indication: Shortness of breath Comparison: 11/24/2019 Findings: Stable right IJ central venous catheter. Patchy heterogeneous opacities within the left mid and lower lung zones are unchanged. Hyperaerated lung volume is likely due to underlying emphysema. Stable cardiomediastinal silhouette. No pneumothorax or pleural effusion. Impression: 1. Patchy heterogeneous pulmonary opacities in the left midlung are likely due to an infectious and/or inflammatory process. Dictated by: Dictated on workstation # [id number]
[2019-11-25] MEDS: RT-BUDESONIDE NEBS 0.5 MG/2ML (PULMICORT) AMP INH SCH (07:29)
[2019-11-25 08:00] VITALS: BP 128/77
[2019-11-25] MEDS ORDERED: meTOproloL SUCCINATE 50 MG (TOPROL XL) TAB PO SCH (09:00)
[2019-11-25] MEDS ORDERED: FUROSEMIDE 40 MG/4 ML INJ (LASIX) IVP SCH (09:00)
[2019-11-25] MEDS: guaiFENesin (MUCINEX) 600 MG TAB PO SCH (09:22)
[2019-11-25] MEDS: LORATADINE (CLARITIN) 10 MG TAB PO SCH (09:23)
[2019-11-25] MEDS: APIXABAN 5 MG (ELIQUIS) TABLET PO SCH (09:23)
[2019-11-25 09:45] VITALS: BP 128/77
--- NOTE | 2019-11-25 09:58 | Pulmonary Progress Note ---
Sepsis Event Evaluation Height, Weight, BMI Height: '" Weight: lbs. oz. kg; 21.79 BMI Method: Exam Exam Vital Signs Date Time Temp Pulse Resp B/P (MAP) Pulse Ox O2 Delivery O2 Flow Rate FiO2 11/25/19 08:00 36.6 85 20 128/77 (94) 92 Nasal Cannula 0.50 11/25/19 07:34 92 Nasal Cannula 0.50 11/25/19 07:29 92 Nasal Cannula 0.50 11/25/19 07:00 72 11/25/19 04:00 36.7 72 18 133/90 (104) 96 Nasal Cannula 0.50 11/25/19 04:00 96 Nasal Cannula 0.50 11/25/19 01:00 101 11/25/19 00:00 94 Nasal Cannula 0.50 11/24/19 23:40 36.9 112 18 130/73 (92) 94 Nasal Cannula 0.50 11/24/19 21:52 90 Nasal Cannula 0.50 11/24/19 21:00 94 Nasal Cannula 2.00 11/24/19 20:00 37.3 92 20 158/81 (106) Nasal Cannula 1.00 11/24/19 20:00 94 Nasal Cannula 2.00 11/24/19 19:00 100 11/24/19 18:14 Nasal Cannula 2.00 11/24/19 18:14 93 Nasal Cannula 2.00 11/24/19 16:00 36.8 85 18 145/66 (92) Nasal Cannula 2.00 11/24/19 16:00 93 Nasal Cannula 2.00 11/24/19 15:07 93 Nasal Cannula 2.00 11/24/19 12:15 99 11/24/19 12:00 36.5 80 20 133/75 (94) Nasal Cannula 2.00 11/24/19 12:00 95 Nasal Cannula 2.00 11/24/19 11:49 95 Nasal Cannula 2.00 I & O 11/25/19 07:00 Intake Total 3080 ml Output Total 4125 ml Balance -1045 ml Height & Weight Height: '" Weight: lbs. oz. kg; 21.79 BMI Method: General Appearance: No Apparent Distress, WD/WN, Chronically ill, Thin HEENT: PERRL/EOMI, Normal ENT Inspection, Pharynx Normal, Moist Mucous Membranes Neck: Full Range of Motion, Normal Inspection, Non Tender Respiratory: No Accessory Muscle Use, No Respiratory Distress, Crackles, Rales, Wheezing Cardiovascular: Regular Rate, Rhythm Capillary Refill: Less Than 3 Seconds Gastrointestinal: normal bowel sounds, non tender, soft Extremity: Normal Capillary Refill, Normal Inspection, Normal Range of Motion, Non Tender, No Calf Tenderness, No Pedal Edema Neurologic/Psychiatric: Alert, Oriented x3, No Motor/Sensory Deficits, Normal Mood/Affect Skin: Normal Color, Warm/Dry Lymphatic: No Adenopathy Results Lab Laboratory Tests 11/24/19 03:29 11/25/19 05:05 Assessment/Plan Assessment/Plan Bilateral PNA -Influenza negative -Zosyn -Weir cultures pending COPD -Duonebs add pulmicort -Solumedrol -Pt will probably need home 02 upon discharge Afib RVR -- new onset last night -Cardizem PO -IVF -Cardiology following Multiple pulmonary nodules with some spiculation -Pt needs out pt PET scan. Thrombcytosis/p KEITH MULLEN DO Nov 25, 2019 09:57
--- NOTE | 2019-11-25 10:45 | Progress Note - Cardiology ---
Cardiology SOAP Progress Note Subjective: Sitting up on the side of the bed. States he feels his breathing is somewhat better. Continues to c/o episodes of high HR. States last night he got up to use the BR and the nurse came in and reported his HR was elevated at that time. He states he did not feel any palpitations at that time. No syncope/near syncope. Feels LE swelling was better when he first woke up this morning. Objective: I&O/Vital Signs 11/24/19 11/25/19 11/25/19 11/25/19 23:40 00:00 01:00 04:00 Temp 36.9 Pulse 112 101 Resp 18 B/P (MAP) 130/73 (92) Pulse Ox 94 94 96 O2 Delivery Nasal Cannula Nasal Cannula Nasal Cannula O2 Flow Rate 0.50 0.50 0.50 11/25/19 11/25/19 11/25/19 11/25/19 04:00 07:00 07:29 07:34 Temp 36.7 Pulse 72 72 Resp 18 B/P (MAP) 133/90 (104) Pulse Ox 96 92 92 O2 Delivery Nasal Cannula Nasal Cannula Nasal Cannula O2 Flow Rate 0.50 0.50 0.50 11/25/19 11/25/19 08:00 09:45 Temp 36.6 36.6 Pulse 85 85 Resp 20 B/P (MAP) 128/77 (94) Pulse Ox 92 94 O2 Delivery Nasal Cannula O2 Flow Rate 0.50 11/25/19 00:00 Intake Total 2360 ml Output Total 4125 ml Balance -1765 ml Constitutional: AAO x 3, well-developed, well-nourished Respiratory: rhonchi (scattered), other (prolonged expphase) Cardiovascular: irregularly irregular; No JVD; S1 and S2 Gastrointestional: No tender; soft, round, audible bowel sounds Extremities: no lower extremity edema bilateral Neurologic/Psychiatric: other (moves all extremities) Skin: No rash on exposed areas, No ulcerations on exposed areas Results/Procedures: Labs Laboratory Tests 11/25/19 05:05: White Blood Count 23.9H, Red Blood Count 4.09L, Hemoglobin 12.1L, Hematocrit 37L , Mean Corpuscular Volume 89, Mean Corpuscular Hemoglobin 30, Mean Corpuscular Hemoglobin Concent 33, Red Cell Distribution Width 15.1H, Platelet Count 1056*H, Mean Platelet Volume 9.3, Neutrophils (%) (Auto) 96H, Lymphocytes (%) (Auto) 2L, Monocytes (%) (Auto) 2, Eosinophils (%) (Auto) 0, Basophils (%) (Auto) 0, Neutr ophils # (Auto) 23.0H, Lymphocytes # (Auto) 0.4L, Monocytes # (Auto) 0.5, Eosinophils # (Auto) 0.0, Basophils # (Auto) 0.0, Sodium Level 141, Potassium Level 4.0, Chloride Level 102, Carbon Dioxide Level 28, Anion Gap 11, Blood Urea Nitrogen 25H, Creatinine 0.93, Estimat Glomerular Filtration Rate > 60, BUN/Creatinine Ratio 27, Glucose Level 165H, Calcium Level 9.1, Corrected Calcium 9.8, Phosphorus Level 2.7, Magnesium Level 2.2, Total Bilirubin 0.3, Aspartate Amino Transf (AST/SGOT) 56H, Alanine Aminotransferase (ALT/SGPT) 151H, Alkaline Phosphatase 114, Total Protein 6.1L, Albumin 3.1L Microbiology 11/21/19 Gram Stain - Final, Complete 11/21/19 Sputum Culture - Final, Complete Usual upper respiratory devendra 11/21/19 Blood Culture - Preliminary, Resulted Staph, 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 Patchy heterogeneous opacities within the left mid and lower lung zones are unchanged. Hyperaerated lung volume is likely due to underlying emphysema. Stable cardiomediastinal silhouette. No pneumothorax or pleural effusion. Impression: 1. Patchy heterogeneous pulmonary opacities in the left midlung are likely due to an infectious and/or inflammatory process. Dictated by: Dictated on workstation # [id number] Dict: 11/25/19 0723 Trans: 11/25/19905 CHELY [id number] Interpreted by: CHELSEA GALE MD Electronically signed by: CHELSEA GALE MD 11/25/19905 A/P: Assessment: New onset of a-fib with RVR - first diagnosed on EKG of 11-21-2019 Echo of 11/22/19: LVEF 50-55%, RVSP 30 mmHg Pneumonia - management is by the Hospitalist and Pulm Services Elevated liver enzymes of undetermined etiology HTN COPD Chew tobacco user (quit smoking approx 20 years ago) Thrombocytosis and leukocytosis (worsening) - management is by the Hospitalist Service Plan: * Multiple issue addressed * Continued worsening of liver enzymes with worsening thrombocytosis and leukocytosis of undetermined etiology - medical services managing * Plan currently is to provide rate control and stroke prophylaxis * Continue BB and Cardizem CD * Continue apixaban * Monitor labs closely * I spoke with him in detail and answered CV-related questions CLARY GONZALEZ Nov 25, 2019 10:45
[2019-11-25 12:00] VITALS: BP 137/86
--- NOTE | 2019-11-25 12:04 | NUR ---
PT WALKED 636 FT. PT REQUIRES 4L OF OXYGEN ON EXERTION.
[2019-11-25] MEDS ORDERED: APIX5TAB PO (15:03)
[2019-11-25] MEDS ORDERED: METO50TA7 PO (15:03)
[2019-11-25] MEDS ORDERED: DILT180C85 PO (15:03)
[2019-11-25] MEDS ORDERED: AMOX-355 PO (15:05)
[2019-11-25] MEDS ORDERED: PRD20T PO (15:05)
[2019-11-25] MEDS ORDERED: ASPI-983 PO (15:09)
[2019-11-25 16:34] VITALS: BP 137/86
== END 2019-11-25 16:43 | disposition home or self-care (01) | DRG 871 ==
LOC: EDUNIT# 17:33 → ER 17:35 → ICU 18:32 → 4TH 11-24 09:23
PROVIDERS: ADMIT Internal Medicine; ATTEND Internal Medicine
PROC: 02HV33Z Insertion of Infusion Device into Superior Vena Cava, Percutaneous Approach (ICD-10-PCS; principal; 2019-11-21)
DX: A41.9 Sepsis, unspecified organism (principal); R65.20 Severe sepsis without septic shock; J18.9 Pneumonia, unspecified organism; Z86.19 Personal history of other infectious and parasitic diseases; D47.3 Essential (hemorrhagic) thrombocythemia; J44.0 Chronic obstructive pulmonary disease with (acute) lower respiratory infection; I10 Essential (primary) hypertension; I48.91 Unspecified atrial fibrillation; F17.220 Nicotine dependence, chewing tobacco, uncomplicated; R91.1 Solitary pulmonary nodule; Z87.891 Personal history of nicotine dependence
CPT/HCPCS: 36415; 71045; 71260; 80053; 81000; 82805; 83605; 83735; 83880; 84100; 84484; 85007; 85025; 85027; 87040; 87070; 87205; 87449; 87804; 87899; 93005; 93306; 94640; 94664; 94760; 94761; 96361; 96374

== ENCOUNTER 2020-04-28 14:47 | Emergency (ER) | payer MEDICARE ==
[~2020-04-28] VITALS: Ht 185 cm; Wt 86.0 kg
[~2020-04-28 14:47] MED LIST: AMOX-355 PO; APIX5TAB PO; ASPI-983 PO; ASPI325T32 PO; CETI10TA17 PO; DILT180C85 PO; FLUT1AER INH; GUAI120013 PO; IPRA3AMP31 NEB; METO50TA7 PO; MULT-567 PO; PRD20T PO
--- OUTSIDE RECORDS SUMMARY | 2020-04-28 14:54 | XMS REPORT | Continuity of Care Document ---
Author Organization Unknown Address Unknown Phone Unavailable Allergies Active Description Code Type Severity Reaction Onset Reported/Identified Relationship to Patient Clinical Status Yes NO KNOWN DRUG ALLERGIES UNKNOWN NO KNOWN DRUG ALLERG Yes No Known Drug Allergies [id number] Drug Allergy Unknown N/A 11/21/2019 Medications Medication Packaging Start Date St op Date Route Dosage Sig METHYLPREDNISOLONE VIAL INJ 125 MG/2CC (SOLU-MEDROL VIAL) MG 01/18/2019 01/18/2019 ONCE&0856 AZITHROMYCIN TAB 500 MG (ZITHROMAX) MG 01/18/2019 01/22/2019 Daily&0900 ACETAMINOPHEN ORAL TABLET 325mg(Tylenol) MG 01/18/2019 02/17/2019 PRN EVERY 6 Hour NORMAL SALINE 1000CC IV BAG INJ 0.9 % (NS 1000CC IV BAG) ml 01/18/2019 01/23/2019 CONTINUOUSEVERY 0 Hour ACETAMINOPHEN SUPPOS SUP 650 MG (TYLENOL) MG 01/18/2019 01/25/2019 PRN Q4H ONDANSETRON VIAL INJ 4 MG/2CC (ZOFRAN 2CC VIAL) MG 01/18/2019 01/25/2019 PRN Q4H ALBUTEROL SVN 2.5MG/3CC LIQ 2.5 MG (PROVENTIL MARY 2.5MG/3CC) MG 01/18/2019 01/28/2019 PRN Q4H IPRATROPIUM/ALBUTEROL INH SO LN (DUO-NEB INH SOLN) MLS 01/18/2019 01/23/2019 Q4H&0200,0600,1000,1400,1800 ,2200 ALUM/MAG/SIMETH 30CC LIQ (MYLANTA PLUS) cc 01/18/2019 01/28/2019 PRN Q4H GUAIFENESIN - DM LIQ (ROBITUSSIN DM) MLS 01/18/2019 01/25/2019 PRN Q4H BUDESONIDE INHALATION SUSP A MP 0.5 MG/2CC (PULMICORT) MG 01/18/2019 01/24/2019 BID&0800,2000 ALPRAZOLAM TAB 0.25 MG (XANAX) MG 01/18/2019 01/28/2019 PRN Q6H CLONIDINE TAB 0.1 MG (CATAPRES) MG 01/18/2019 01/25/2019 PRN Q6H CALCIUM CARBONATE TAB 500 MG (TUMS) MG 01/18/2019 01/25/2019 PRN Q6H DIPHENHYDRAMINE CAP 25 MG (BENADRYL) MG 01/18/2019 01/25/2019 PRN Q6H HYDROCODONE/APAP 5MG/325MG T AB 5 MG/325MG (YUDY-TAB 5/325) TAB 01/18/2019 01/28/2019 PRN Q6H PANTOPRAZOLE VIAL INJ 40 MG (PROTONIX IV) MG 01/18/2019 01/27/2019 Daily&1200 Piperacillin-tazobactam 3.37 5 Gm IV recon soln (Zosyn) GM 01/18/2019 01/25/2019 Q6H&0600,1200,1800,2359 METHYLPREDNISOLONE VIAL INJ 125 MG/2CC (SOLU-MEDROL VIAL) MG 01/18/2019 01/23/2019 Q6H&0600,1200,1800,2359 Docusate sodium 100mg oral capsule (COLACE ) 01/18/2019 02/17/2019 PRN BID LACTULOSE SYRUP LIQ 20 GM/30 CC (CHRONULAC SYRUP) GM 01/18/2019 02/17/2019 BID&0800,2000 ENOXAPARIN SYRINGE INJ 40 MG (LOVENOX SYRI NGE) MG 01/18/2019 01/27/2019 Daily&2100 MELATONIN TAB 3 MG (MELATONIN) MG 01/18/2019 01/24/2019 PRN QHS METHYLPREDNISOLONE VIAL INJ 125 MG/2CC (SOLU-MEDROL VIAL) MG 01/19/2019 01/23/2019 TID&0800,1300,1800 BISACODYL TAB 5 MG (DULCOLAX) MG 01/19/2019 01/25/2019 PRN Daily POLYETHYLENE GLYCOL POWDER U D PWD (MIRALAX 17GM UNIT DOSE PAKS) gm 01/19/2019 01/25/2019 Daily&0900 BISACODYL SUPPOS 10 MG (DULCOLAX SUPPOS) MG 01/19/2019 01/25/2019 PRN Daily MILK OF LD LIQ ml 01/19/2019 02/17/2019 PRN Daily ASCORBIC ACID TAB 500 MG (VITAMIN C) MG 01/20/2019 01/26/2019 Daily&0900 Aspirin ENTERIC COATED TAB 325 MG (ECOTRIN ) MG 01/20/2019 02/18/2019 Daily&0900 CETIRIZINE TAB 10 MG (ZYRTEC) MG 01/20/2019 01/26/2019 Daily&0900 MultiVits (Thera M Plus) (mu dgluzr-garf-llhiyra) oral tablet TAB 01/20/2019 02/18/2019 Daily&0900 GUAIFENESIN TAB 600 MG (MUCINEX) MG 01/20/2019 01/27/2019 Q12H&0600,1800 Problems Date Dx Coded Attending Type Code Diagnosis Diagnosed By 12/30/2018 PORTER PELAEZ APRN Ot G47.9 SLEEP DISORDER, UNSPECIFIED 12/30/2018 PORTER PELAEZ APRN Ot J30.9 ALLERGIC RHINITIS, UNSPECIFIED 12/30/2018 PORTER PELAEZ APRN Ot J44.9 CHRONIC OBSTRUCTIVE PULMONARY DISEASE, U 12/30/2018 PORTER PELAEZ APRN Ot R05 COUGH 12/30/2018 PORTER PELAEZ APRN Ot R06.00 DYSPNEA, UNSPECIFIED 12/30/2018 PORTER PELAEZ APRN Ot R06.89 OTHER ABNORMALITIES OF BREATHING 01/07/2019 PORTER PELAEZ APRN Ot J30.9 ALLERGIC RHINITIS, UNSPECIFIED 01/07/2019 PORTER PELAEZ APRN Ot J44.9 CHRONIC OBSTRUCTIVE PULMONARY DISEASE, U 01/07/2019 PORTER PELAEZ APRN Ot R05 COUGH 01/07/2019 PORTER PELAEZ APRN Ot R06.00 DYSPNEA, UNSPECIFIED 01/07/2019 PORTER PELAEZ OPHTHALMOLOGY TECHNICIAN Ot R06.89 OTHER ABNORMALITIES OF BREATHING 01/10/2019 PORTER PELAEZ APRN Ot J30.9 ALLERGIC RHINITIS, UNSPECIFIED 01/10/2019 PORTER PELAEZ APRN Ot J44.9 CHRONIC OBSTRUCTIVE PULMONARY DISEASE, U 01/10/2019 PORTER PELAEZ APRN Ot R05 COUGH 01/10/2019 PORTER PELAEZ APRN Ot R06.00 DYSPNEA, UNSPECIFIED 01/10/2019 PORTER PELAEZ APRN Ot R06.89 OTHER ABNORMALITIES OF BREATHING 01/10/2019 PORTER PELAEZ APRN Ot G47.9 SLEEP DISORDER, UNSPECIFIED 01/18/2019 Giselle Rosales W 491.21 OBSTRUCTIVE CHRONIC BRONCHITIS WITH (ACUTE) EXACERBATION 01/18/2019 Giselle Rosales W 799.02 HYPOXEMIA 01/18/2019 Giselle Rosales W J44.1 CHRONIC OBSTRUCTIVE PULMONARY DISEASE WITH (ACUTE) EXACERBATION 01/18/2019 Giselle Rosales W R09.02 HYPOXEMIA 01/18/2019 Giselle Rosales W 491.21 OBSTRUCTIVE CHRONIC BRONCHITIS WITH (ACUTE) EXACERBATION 01/18/2019 Giselle Rosales W 799.02 HYPOXEMIA 01/18/2019 Giselle Rosales W J44.1 CHRONIC OBSTRUCTIVE PULMONARY DISEASE WITH (ACUTE) EXACERBATION 01/18/2019 Giselle Rosales W R09.02 HYPOXEMIA 01/21/2019 Giselle Rosales W 238.71 ESSENTIAL THROMBOCYTHEMIA 01/21/2019 Giselle Rosales W 466.0 ACUTE BRONCHITIS 01/21/2019 Giselle Rosales W 491.21 OBSTRUCTIVE CHRONIC BRONCHITIS WITH (ACUTE) EXACERBATION 01/21/2019 Giselle Rosales W 491.22 01/21/2019 Giselle Rosales W 793.11 SOLITARY PULMONARY NODULE 01/21/2019 Seema Rosalesi W 799.02 HYPOXEMIA 01/21/2019 Giselle Rosales W 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 (HEMORRHAGIC) THROMBOCYTHEMIA 01/21/2019 Giselle Rosales W J20.9 ACUTE BRONCHITIS, UNSPECIFIED 01/21/2019 Giselle Rosales W J44.0 CHRONIC OBSTRUCTIVE PULMON DISEASE W ACUTE LOWER RESP INFCT 01/21/2019 Giselle Rosales W J44.1 CHRONIC OBSTRUCTIVE PULMONARY DISEASE WITH (ACUTE) EXACERBATION 01/21/2019 Giselle Rosales W R09.02 HYPOXEMIA 01/21/2019 Giselle Rosales W R91.1 SOLITARY PULMONARY NODULE 11/22/2019 PORTER PELAEZ APRN Ot J30.9 ALLERGIC RHINITIS, UNSPECIFIED 11/22/2019 PORTER PELAEZ APRN Ot J44.9 CHRONIC OBSTRUCTIVE PULMONARY DISEASE, U 11/22/2019 PORTER PELAEZ APRN Ot R05 COUGH 11/22/2019 PORTER PELAEZ OPHTHALMOLOGY TECHNICIAN Ot R06.00 DYSPNEA, UNSPECIFIED 11/22/2019 PORTER PELAEZ OPHTHALMOLOGY TECHNICIAN Ot R06.89 OTHER ABNORMALITIES OF BREATHING 11/24/2019 ROSALES DO, GISELLE Ot A41.9 SEPSIS, UNSPECIFIED ORGANISM 11/24/2019 ROSALES DO, GISELLE Ot 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 (HEMORRHAGIC) THROMBOCYTHEMIA 11/24/2019 ROSALES DO, GISELLE Ot F17.22 0 NICOTINE DEPENDENCE, CHEWING TOBACCO, UN 11/24/2019 ROSALES DO, GISELLE Ot I10 ESSENTIAL (PRIMARY) HYPERTENSION 11/24/2019 ROSALES DO, GISELLE Ot I48.91 UNSPECIFIED ATRIAL FIBRILLATION 11/24/2019 ROSALES DO, GISELLE Ot J18.9 PNEUMONIA, UNSPECIFIED ORGANISM 11/24/2019 ROSALES DO, GISELLE Ot J44.9 CHRONIC OBSTRUCTIVE PULMONARY DISEASE, U 11/24/2019 ROSALES DO, GISELLE Ot R65.20 SEVERE SEPSIS WITHOUT SEPTIC SHOCK 11/24/2019 ROSALES DO, GISELLE Ot Z86.19 PERSONAL HISTORY OF OTHER INFECTIOUS AND 11/24/2019 ROSALES DO, GISELLE Ot A41.9 SEPSIS, UNSPECIFIED ORGANISM 11/24/2019 ROSALES DO, GISELLE Ot 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 (HEMORRHAGIC) THROMBOCYTHEMIA 11/24/2019 ROSALES DO, GISELLE Ot F17.22 0 NICOTINE DEPENDENCE, CHEWING TOBACCO, UN 11/24/2019 ROSALES DO, GISELLE Ot I10 ESSENTIAL (PRIMARY) HYPERTENSION 11/24/2019 ROSALES DO, GISELLE Ot I48.91 UNSPECIFIED ATRIAL FIBRILLATION 11/24/2019 ROSALES DO, GISELLE Ot J18.9 PNEUMONIA, UNSPECIFIED ORGANISM 11/24/2019 ROSALES DO, GISELLE Ot J44.9 CHRONIC OBSTRUCTIVE PULMONARY DISEASE, U 11/24/2019 ROSALES DO, GISELLE Ot R65.20 SEVERE SEPSIS WITHOUT SEPTIC SHOCK 11/24/2019 ROSALES DO, GISELLE Ot Z86.19 PERSONAL HISTORY OF OTHER INFECTIOUS AND 11/25/2019 ROSALES DO, GISELLE Ot A41.9 SEPSIS, UNSPECIFIED ORGANISM 11/25/2019 ROSALES DO, GISELLE Ot 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 (HEMORRHAGIC) THROMBOCYTHEMIA 11/25/2019 ROSALES DO, GISELLE Ot F17.22 0 NICOTINE DEPENDENCE, CHEWING TOBACCO, UN 11/25/2019 ROSALES DO, GISELLE Ot I10 ESSENTIAL (PRIMARY) HYPERTENSION 11/25/2019 ROSALES DO, GISELLE Ot I48.91 UNSPECIFIED ATRIAL FIBRILLATION 11/25/2019 ROSALES DO, GISELLE Ot J18.9 PNEUMONIA, UNSPECIFIED ORGANISM 11/25/2019 ROSALES DO, GISELLE Ot J44.9 CHRONIC OBSTRUCTIVE PULMONARY DISEASE, U 11/25/2019 ROSALES DO, GISELLE Ot R65.20 SEVERE SEPSIS WITHOUT SEPTIC SHOCK 11/25/2019 ROSALES DO, GISELLE Ot Z86.19 PERSONAL HISTORY OF OTHER INFECTIOUS AND 11/25/2019 ROSALES DO, GISELLE Ot A41.9 SEPSIS, UNSPECIFIED ORGANISM 11/25/2019 ROSALES DO, GISELLE Ot 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 (HEMORRHAGIC) THROMBOCYTHEMIA 11/25/2019 ROSALES DO, GISELLE Ot F17.22 0 NICOTINE DEPENDENCE, CHEWING TOBACCO, UN 11/25/2019 ROSALES DO, GISELLE Ot I10 ESSENTIAL (PRIMARY) HYPERTENSION 11/25/2019 ROSALES DO, GISELLE Ot I48.91 UNSPECIFIED ATRIAL FIBRILLATION 11/25/2019 ROSALES DO, GISELLE Ot J18.9 PNEUMONIA, UNSPECIFIED ORGANISM 11/25/2019 ROSALES DO, GISELLE Ot J44.0 CHR OBSTRUCTIVE PULMON DISEASE WITH (ACU 11/25/2019 ROSALSE DO, GISELLE Ot R65.20 SEVERE SEPSIS WITHOUT SEPTIC SHOCK 11/25/2019 ROSALES DO, GISELLE Ot R91.1 SOLITARY PULMONARY NODULE 11/25/2019 ROSALES DO, GISELLE Ot Z86.19 PERSONAL HISTORY OF OTHER INFECTIOUS AND 11/25/2019 ROSALES DO, GISELLE Ot Z87.89 1 PERSONAL HISTORY OF NICOTINE DEPENDENCE 12/16/2019 PORTER PELAEZ OPHTHALMOLOGY TECHNICIAN Ot J30.9 ALLERGIC RHINITIS, UNSPECIFIED 12/16/2019 PORTER PELAEZ OPHTHALMOLOGY TECHNICIAN Ot J44.9 CHRONIC OBSTRUCTIVE PULMONARY DISEASE, U 12/16/2019 PORTER PELAEZ OPHTHALMOLOGY TECHNICIAN Ot R05 COUGH 12/16/2019 PORTER PELAEZ OPHTHALMOLOGY TECHNICIAN Ot R06.00 DYSPNEA, UNSPECIFIED 12/16/2019 PORTER PELAEZ OPHTHALMOLOGY TECHNICIAN Ot R06.89 OTHER ABNORMALITIES OF BREATHING Procedures Code Description Performed By Per gene On [id number] IN SERTION OF INFUSION DEV INTO SUP VENA 11/21/2019 Results Test Result Range [facility] - 12/06/18 15:12 GLUCOSE TNP mg/dL NRG UREA NITROGEN (BUN) 12 mg/dL 7-25 CREATININE 1.02 mg/dL 0.70-1.18 eGFR NON-AFR. TAJIK 74 mL/min/1.73m2 > OR = 60 eGFR 86 mL/min/1.73m2 > OR = 60 BUN/CREATININE RATIO NOT APPLICABLE (calc) 6-22 SODIUM 141 mmol/L 135-146 POTASSIUM 5.2 mmol/L 3.5-5.3 CHLORIDE 97 mmol/L 98-110 CARBON DIOXIDE 21 mmol/L 20-32 CALCIUM 8.8 mg/dL 8.6-10.3 PROTEIN, TOTAL 6.6 g/dL 6.1-8.1 ALBUMIN 3.9 g/dL 3.6-5.1 GLOBULIN 2.7 g/dL (calc) 1.9-3.7 ALBUMIN/GLOBULIN RATIO 1.4 (calc) 1.0-2. 5 BILIRUBIN, TOTAL 0.6 mg/dL 0.2-1.2 ALKALINE PHOSPHATASE 118 U/L 40-115 AST 27 U/L 10-35 ALT 24 U/L 9-46 CBC - 12/06/18 15:12 WHITE BLOOD CELL COUNT 15.9 Thousand/uL 3.8-10.8 RED BLOOD CELL COUNT 4.54 Million/uL 4.2 0-5.80 HEMOGLOBIN 14.0 g/dL 13.2-17.1 HEMATOCRIT 41.5 % 38.5-50.0 MCV 91.4 fL 80.0-100.0 MCH 30.8 pg 27.0-33.0 MCHC 33.7 g/dL 32.0-36.0 RDW 14.4 % 11.0-15.0 PLATELET COUNT 765 Thousand/uL 140-400 MPV 9.6 fL 7.5-12.5 ABSOLUTE NEUTROPHILS 78231 cells/uL 1500 -7800 ABSOLUTE MONOCYTES 1129 cells/uL 200-950 ABSOLUTE EOSINOPHILS 159 cells/uL 15-500 ABSOLUTE BASOPHILS 159 cells/uL 0-200 NEUTROPHILS 75.7 % NRG LYMPHOCYTES 9.1 % NRG MONOCYTES 7.1 % NRG EOSINOPHILS 1.0 % NRG BASOPHILS 1.0 % NRG ABSOLUTE BAND NEUTROPHILS 970 cells/uL 0 -750 ABSOLUTE LYMPHOCYTES 1447 cells/uL 850-3 900 BAND NEUTROPHILS 6.1 % NRG NOTE NRG TSH - 12/06/18 15:12 TSH 1.38 mIU/L 0.40-4.50 SPECIMEN INTEGRITY COMPROMISED - 9 15:12 SPECIMEN INTEGRITY COMPROMISED NRG [id number] - 12/28/18 15:24 Serum or plasma urea nitrogen measurement (mass/volume ) 11 mg/dL 7-18 Serum or plasma creatinine measurement (mass/volume) 1.08 mg/dL 0.60-1.30 Serum or plasma urea nitrogen/creatinine mass ratio 10 NRG Serum or plasma creatinine measurement w ith calculation of estimated glomerular filtration rate > NRG Arterial blood gas measurement - 9 15:57 Blood pCO2 34 mm[Hg] 35-45 Blood pO2 62 mm[Hg] 79-93 Arterial blood bicarbonate measurement (moles/volume) 22 mmol/L 23-27 Arterial blood base excess by calculation -1.9 mmo l/L -2.5-2.5 Arterial blood oxygen saturation measurement 94 % 94-100 * Inhaled oxygen flow rate ROOM AIR NRG Arterial blood pH measurement with patient temperature correction 7.43 7.37-7.43 Arterial blood carbon dioxide, total measurement (mole s/volume) 23.3 mmol/L 21.0-31.0 Body site RIGHT BRACHIAL NRG Assessment of wrist artery patency prior to arterial p uncture NA NRG Setting of ventilation mode NO NR G Measurement of body temperature 96.1 NRG Arterial Blood Gas - 01/18/19 08:37 Urinalysis - 01/18/19 08:48 Icotest N/A Negative Urine Volume Urine Volume Sufficient (10mL) Urine Yeast No Yeast present Urine-Appearance Clear Clear Urine-Bacteria Negative Urine-Bilirubin Negative Negative Urine-Blood Negative Negative Urine-Color Yellow Colorless-[place] Urine-Glucose Negative Negative Urine-Ketones 2+ Negative Urine-Leukocytes Negative Negative Urine-Mucus 1+ Urine-Nitrite Negative Negative Urine-Other Urine Saved if Culture Need ed (48hrs from time of collection) Urine-pH 6.5 5-8.5 Urine-Protein Negative Negative Urine-RBC Negative Urine-Specific [place] 1.020 1.000-1 .030 Urine-WBC Negative Urobilinogen 0.2 E.U./dL 0.2-1.0 Arterial Blood Gas - 01/18/19 09:05 Base -2.00 mmol/L 1.80-4.20 HCO3 23 mmol/L 20-31 O2 Sat 93 RM AIR % 95-100 pCO2 38 mm/Hg 35-45 pH 7.39 7.35-7.45 PO2 67 mm/Hg 80-95 Sputum Culture - 01/18/19 17:28 PRELIM CULTURE RESULTS Abundant Gram Positiv e Mixed Apparent Normal Ching [id number] Pathogen Isolated at 24 Hours FINAL CULTURE RESULTS Abundant Gram Positive Mixed Apparent Normal Ching [id number] Pathogens Isolated [id number] Further Workup done [facility] - 01/19/19 05:15 Anion Gap 16 6-14 BUN 13 mg/dL 5-25 Calcium 9.4 mg/dL 8.3-10.4 Chloride 109 mmol/L 95-114 CO2 21 mEq/L 22-33 Creat 0.95 mg/dL 0.50-1.50 eGFR 78 mL/min/1.73m2 >59 Glucose 196 mg/dL 70-110 Osmo 298 280-295 Potassium 4.0 mmol/L 3.5-5.3 Sodium 142 mmol/L 134-148 Comprehensive Metabolic Panel - 01/20/19 04:58 Albumin 3.5 g/dL 3.6-5.1 ALP 78 U/L 35-130 ALT 36 U/L 6-45 Anion Gap 16 6-14 AST 37 U/L 2-40 BUN 16 mg/dL 5-25 Calcium 9.2 mg/dL 8.3-10.4 Chloride 109 mmol/L 95-114 CO2 22 mEq/L 22-33 Creat 1.06 mg/dL 0.50-1.50 eGFR 69 mL/min/1.73m2 >59 Globulin 2.3 g/dL 2.3-3.5 Glucose 127 mg/dL 70-110 Osmo 298 280-295 Potassium 4.3 mmol/L 3.5-5.3 Sodium 143 mmol/L 134-148 TBil 0.2 mg/dL 0.2-1.2 TP 5.8 g/dL 6.0-8.3 Complete blood count (CBC) with automate d white blood cell (WBC) differential - 11/21/19 17:43 Blood leukocytes automated count (number/volume) 32.2 10*3/uL 4.3-11.0 Blood erythrocytes automated count (number/volume) 4.98 10*6/uL 4.35-5.85 Venous blood hemoglobin measurement (mass/volume) 14.8 g/dL 13.3-17.7 Blood hematocrit (volume fraction) 44 % 40-54 Automated erythrocyte mean corpuscular volume 88 [ foz_us] 80-99 Automated erythrocyte mean corpuscular h emoglobin (mass per erythrocyte) 30 pg 25-34 Automated erythrocyte mean corpuscular h emoglobin concentration measurement (mass/volume) 34 g/dL 32-36 Automated erythrocyte distribution width ratio 14. 8 % 10.0- 14.5 Automated blood platelet count (count/volume) 1024 10*3/uL 130-400 Automated blood platelet mean volume measurement 9.5 [foz_us] 7.4-10.4 Automated blood neutrophils/100 leukocytes 86 % 42-75 Automated blood lymphocytes/100 leukocytes 4 % 12-44 Blood monocytes/100 leukocytes 11 % 0-12 Automated blood eosinophils/100 leukocytes 0 % 0-10 Automated blood basophils/100 leukocytes 0 % 0-10 Blood neutrophils automated count (number/volume) 27.6 10*3 1.8-7.8 Blood lymphocytes automated count (number/volume) 1.1 10*3 1.0-4.0 Blood monocytes automated count (number/volume) 3. 4 10*3 0.0-1.0 Automated eosinophil count 0.0 10*3/uL 0 .0-0.3 Automated blood basophil count (count/volume) 0.1 10*3/uL 0.0-0.1 Blood lactic acid measurement (moles/vol ume) - 11/21/19 17:43 Blood lactic acid measurement (moles/volume) 1.28 mmol/L 0.50-2.00 Comprehensive metabolic panel - 11/21/19 17:43 Serum or plasma sodium measurement (moles/volume) 137 mmol/L 135-145 Serum or plasma potassium measurement (moles/volume) 4.5 mmol/L 3.6-5.0 Serum or plasma chloride measurement (moles/volume) 101 mmol/L 98-107 Carbon dioxide 22 mmol/L 21-32 Serum or plasma anion gap determination (moles/volume) 14 mmol/L 5-14 Serum or plasma urea nitrogen measurement (mass/volume ) 36 mg/dL 7-18 Serum or plasma creatinine measurement (mass/volume) 1.50 mg/dL 0.60-1.30 Serum or plasma urea nitrogen/creatinine mass ratio 24 NRG Serum or plasma creatinine measurement w ith calculation of estimated glomerular filtration rate 46 NRG Serum or plasma glucose measurement (mass/volume) 107 mg/dL 70-105 Serum or plasma calcium measurement (mass/volume) 9.9 mg/dL 8.5-10.1 Serum or plasma total bilirubin measurement (mass/volu me) 0.9 mg/dL 0.1-1.0 Serum or plasma alkaline phosphatase josh surement (enzymatic activity/volume) 146 U/L 40-136 Serum or plasma aspartate aminotransfera se measurement (enzymatic activity/volume) 36 U/L 5-34 Serum or plasma alanine aminotransferase measurement (enzymatic activity/volume) 50 U/L 0-55 Serum or plasma protein measurement (mass/volume) 7.7 g/dL 6.4-8.2 Serum or plasma albumin measurement (mass/volume) 3.7 g/dL 3.2-4.5 CALCIUM CORRECTED 10.1 mg/dL 8.5-10.1 Serum or plasma troponin i.cardiac measu rement (mass/volume) - 11/21/19 17:43 Serum or plasma troponin i.cardiac measurement (mass/v olume) < ng/mL <0.028 Serum or plasma lithium measurement (mol es/volume) - 11/21/19 17:43 BNP PT 19.2 pg/mL <100.0 Manual absolute plasma cell count - 11/12 17:43 Blood monocytes/100 leukocytes 9 % NRG Manual blood segmented neutrophils/100 leukocytes 83 % NRG Blood band neutrophils/100 leukocytes 3 % NRG Manual blood lymphocytes/100 leukocytes 5 % NRG Blood erythrocyte morphology finding identification NORMAL NRG Bacterial blood culture - 11/21/19 17:43 Bacterial blood culture NG NRG Arterial blood gas measurement - 0 17:48 Blood pCO2 36 mm[Hg] 35-45 Blood pO2 72 mm[Hg] 79-93 Arterial blood bicarbonate measurement (moles/volume) 22 mmol/L 23-27 Arterial blood base excess by calculation -1.7 mmo l/L -2.5-2.5 Arterial blood oxygen saturation measurement 94 % 94-100 * Inhaled oxygen flow rate RA NRG Arterial blood pH measurement with patient temperature correction 7.41 7.37-7.43 Arterial blood carbon dioxide, total measurement (mole s/volume) 23.2 mmol/L 21.0-31.0 Body site RR NRG Assessment of wrist artery patency prior to arterial p uncture YES-POS NRG Setting of ventilation mode NO NR G Measurement of body temperature 37.6 NRG Influenza virus A and B antigen detectio n - 11/21/19 17:48 FLU RESULT NEGATIVE FOR INFLUENZA A AND B ANTIGENS BY IA NRG Bacterial blood culture - 11/21/19 17:55 QUANTITY OF GROWTH . NRG Bacterial blood culture SEE COMMEN NRG Sputum Gram stain - 11/21/19 23:45 Sputum Gram stain Moderate amount of Mixed Bacteri al Ching NRG Bacterial sputum culture - 11/21/19 23:4 5 QUANTITY OF GROWTH . NRG Bacterial sputum culture USUAL RESP NRG Complete blood count (CBC) with automate d white blood cell (WBC) differential - 11/22/19 03:17 Blood leukocytes automated count (number/volume) 23.7 10*3/uL 4.3-11.0 Blood erythrocytes automated count (number/volume) 4.05 10*6/uL 4.35-5.85 Venous blood hemoglobin measurement (mass/volume) 12.2 g/dL 13.3-17.7 Blood hematocrit (volume fraction) 36 % 40-54 Automated erythrocyte mean corpuscular volume 89 [ foz_us] 80-99 Automated erythrocyte mean corpuscular h emoglobin (mass per erythrocyte) 30 pg 25-34 Automated erythrocyte mean corpuscular h emoglobin concentration measurement (mass/volume) 34 g/dL 32-36 Automated erythrocyte distribution width ratio 14. 6 % 10.0- 14.5 Automated blood platelet count (count/volume) 843 10*3/uL 130-400 Automated blood platelet mean volume measurement 9.3 [foz_us] 7.4-10.4 Automated blood neutrophils/100 leukocytes 96 % 42-75 Automated blood lymphocytes/100 leukocytes 2 % 12-44 Blood monocytes/100 leukocytes 2 % 0-12 Automated blood eosinophils/100 leukocytes 0 % 0-10 Automated blood basophils/100 leukocytes 0 % 0-10 Blood neutrophils automated count (number/volume) 22.8 10*3 1.8-7.8 Blood lymphocytes automated count (number/volume) 0.4 10*3 1.0-4.0 Blood monocytes automated count (number/volume) 0. 4 10*3 0.0-1.0 Automated eosinophil count 0.0 10*3/uL 0 .0-0.3 Automated blood basophil count (count/volume) 0.0 10*3/uL 0.0-0.1 Comprehensive metabolic panel - 11/22/19 03:17 Serum or plasma sodium measurement (moles/volume) 136 mmol/L 135-145 Serum or plasma potassium measurement (moles/volume) 4.0 mmol/L 3.6-5.0 Serum or plasma chloride measurement (moles/volume) 105 mmol/L 98-107 Carbon dioxide 21 mmol/L 21-32 Serum or plasma anion gap determination (moles/volume) 10 mmol/L 5-14 Serum or plasma urea nitrogen measurement (mass/volume ) 27 mg/dL 7-18 Serum or plasma creatinine measurement (mass/volume) 1.00 mg/dL 0.60-1.30 Serum or plasma urea nitrogen/creatinine mass ratio 27 NRG Serum or plasma creatinine measurement w ith calculation of estimated glomerular filtration rate > NRG Serum or plasma glucose measurement (mass/volume) 153 mg/dL 70-105 Serum or plasma calcium measurement (mass/volume) 8.9 mg/dL 8.5-10.1 Serum or plasma total bilirubin measurement (mass/volu me) 0.6 mg/dL 0.1-1.0 Serum or plasma alkaline phosphatase josh surement (enzymatic activity/volume) 109 U/L 40-136 Serum or plasma aspartate aminotransfera se measurement (enzymatic activity/volume) 26 U/L 5-34 Serum or plasma alanine aminotransferase measurement (enzymatic activity/volume) 42 U/L 0-55 Serum or plasma protein measurement (mass/volume) 6.3 g/dL 6.4-8.2 Serum or plasma albumin measurement (mass/volume) 3.0 g/dL 3.2-4.5 CALCIUM CORRECTED 9.7 mg/dL 8.5-10.1 Arterial blood gas measurement - 0 05:36 Blood pCO2 34 mm[Hg] 35-45 Blood pO2 72 mm[Hg] 79-93 Arterial blood bicarbonate measurement (moles/volume) 22 mmol/L 23-27 Arterial blood base excess by calculation -1.2 mmo l/L -2.5-2.5 Arterial blood oxygen saturation measurement 95 % 94-100 * Inhaled oxygen flow rate 3L NRG Arterial blood pH measurement with patient temperature correction 7.44 7.37-7.43 Arterial blood carbon dioxide, total measurement (mole s/volume) 23.5 mmol/L 21.0-31.0 Body site RIGHT RADIAL NRG Assessment of wrist artery patency prior to arterial p uncture YES-POS NRG Setting of ventilation mode NO NR G Measurement of body temperature 36.8 NRG Complete urinalysis with reflex to cultu re - 11/22/19 07:30 Urine color determination YELLOW NRG Urine clarity determination CLEAR NR G Urine pH measurement by test strip 6.0 5-9 Specific gravity of urine by test strip 1.025 1.016-1.022 Urine protein assay by test strip, semi-quantitative 1+ NEGATIVE Urine glucose detection by automated test strip 1+ NEGATIVE Erythrocytes detection in urine sediment by light micr oscopy 1+ NEGATIVE Urine ketones detection by automated test strip TR HOLGER NEGATIVE Urine nitrite detection by test strip NEGATIVE NEGATIVE Urine total bilirubin detection by test strip NEGA TIVE NEGATIVE Urine urobilinogen measurement by automated test strip (mass/volume) 0.2 mg/dL < = 1.0 Urine leukocyte esterase detection by dipstick NEG ATIVE NEGATIVE Automated urine sediment erythrocyte cou nt by microscopy (number/high power field) [HPF] NRG Automated urine sediment leukocyte count by microscopy (number/high power field) NONE NRG Bacteria detection in urine sediment by light microsco py FEW NRG Squamous epithelial cells detection in u rine sediment by light microscopy RARE NRG Crystals detection in urine sediment by light microsco py NONE NRG Casts detection in urine sediment by light microscopy PRESENT NRG Mucus detection in urine sediment by light microscopy NEGATIVE NRG Complete urinalysis with reflex to culture NO NRG Hyaline casts detection in urine sediment by light tai roscopy RARE NRG Urine Legionella pneumophila antigen ass ay - 11/22/19 07:30 Urine Legionella pneumophila antigen assay Negativ e NRG Streptococcus pneumoniae antigen detecti on - 11/22/19 07:30 Streptococcus pneumoniae antigen detection Negativ e NRG Complete blood count (CBC) with automate d white blood cell (WBC) differential - 11/23/19 02:30 Blood leukocytes automated count (number/volume) 21.7 10*3/uL 4.3-11.0 Blood erythrocytes automated count (number/volume) 3.58 10*6/uL 4.35-5.85 Venous blood hemoglobin measurement (mass/volume) 10.6 g/dL 13.3-17.7 Blood hematocrit (volume fraction) 32 % 40-54 Automated erythrocyte mean corpuscular volume 90 [ foz_us] 80-99 Automated erythrocyte mean corpuscular h emoglobin (mass per erythrocyte) 30 pg 25-34 Automated erythrocyte mean corpuscular h emoglobin concentration measurement (mass/volume) 33 g/dL 32-36 Automated erythrocyte distribution width ratio 15. 0 % 10.0- 14.5 Automated blood platelet count (count/volume) 823 10*3/uL 130-400 Automated blood platelet mean volume measurement 9.3 [foz_us] 7.4-10.4 Automated blood neutrophils/100 leukocytes 94 % 42-75 Automated blood lymphocytes/100 leukocytes 2 % 12-44 Blood monocytes/100 leukocytes 4 % 0-12 Automated blood eosinophils/100 leukocytes 0 % 0-10 Automated blood basophils/100 leukocytes 0 % 0-10 Blood neutrophils automated count (number/volume) 20.5 10*3 1.8-7.8 Blood lymphocytes automated count (number/volume) 0.4 10*3 1.0-4.0 Blood monocytes automated count (number/volume) 0. 9 10*3 0.0-1.0 Automated eosinophil count 0.0 10*3/uL 0 .0-0.3 Automated blood basophil count (count/volume) 0.0 10*3/uL 0.0-0.1 Comprehensive metabolic panel - 11/23/19 02:30 Serum or plasma sodium measurement (moles/volume) 139 mmol/L 135-145 Serum or plasma potassium measurement (moles/volume) 3.9 mmol/L 3.6-5.0 Serum or plasma chloride measurement (moles/volume) 108 mmol/L 98-107 Carbon dioxide 22 mmol/L 21-32 Serum or plasma anion gap determination (moles/volume) 9 mmol/L 5-14 Serum or plasma urea nitrogen measurement (mass/volume ) 25 mg/dL 7-18 Serum or plasma creatinine measurement (mass/volume) 1.04 mg/dL 0.60-1.30 Serum or plasma urea nitrogen/creatinine mass ratio 24 NRG Serum or plasma creatinine measurement w ith calculation of estimated glomerular filtration rate > NRG Serum or plasma glucose measurement (mass/volume) 224 mg/dL 70-105 Serum or plasma calcium measurement (mass/volume) 8.7 mg/dL 8.5-10.1 Serum or plasma total bilirubin measurement (mass/volu me) 0.3 mg/dL 0.1-1.0 Serum or plasma alkaline phosphatase josh surement (enzymatic activity/volume) 98 U/L 40-136 Serum or plasma aspartate aminotransfera se measurement (enzymatic activity/volume) 45 U/L 5-34 Serum or plasma alanine aminotransferase measurement (enzymatic activity/volume) 56 U/L 0-55 Serum or plasma protein measurement (mass/volume) 5.7 g/dL 6.4-8.2 Serum or plasma albumin measurement (mass/volume) 2.8 g/dL 3.2-4.5 CALCIUM CORRECTED 9.7 mg/dL 8.5-10.1 Serum or plasma phosphate measurement (m ass/volume) - 11/23/19 02:30 Serum or plasma phosphate measurement (mass/volume) 2.1 mg/dL 2.3-4.7 Magnesium - 11/23/19 02:30 Magnesium 2.1 mg/dL 1.6-2.4 Complete blood count (CBC) with automate d white blood cell (WBC) differential - 11/24/19 03:29 Blood leukocytes automated count (number/volume) 23.4 10*3/uL 4.3-11.0 Blood erythrocytes automated count (number/volume) 3.70 10*6/uL 4.35-5.85 Venous blood hemoglobin measurement (mass/volume) 11.0 g/dL 13.3-17.7 Blood hematocrit (volume fraction) 33 % 40-54 Automated erythrocyte mean corpuscular volume 90 [ foz_us] 80-99 Automated erythrocyte mean corpuscular h emoglobin (mass per erythrocyte) 30 pg 25-34 Automated erythrocyte mean corpuscular h emoglobin concentration measurement (mass/volume) 33 g/dL 32-36 Automated erythrocyte distribution width ratio 15. 0 % 10.0- 14.5 Automated blood platelet count (count/volume) 857 10*3/uL 130-400 Automated blood platelet mean volume measurement 9.5 [foz_us] 7.4-10.4 Automated blood neutrophils/100 leukocytes 96 % 42-75 Automated blood lymphocytes/100 leukocytes 1 % 12-44 Blood monocytes/100 leukocytes 3 % 0-12 Automated blood eosinophils/100 leukocytes 0 % 0-10 Automated blood basophils/100 leukocytes 0 % 0-10 Blood neutrophils automated count (number/volume) 22.5 10*3 1.8-7.8 Blood lymphocytes automated count (number/volume) 0.3 10*3 1.0-4.0 Blood monocytes automated count (number/volume) 0. 6 10*3 0.0-1.0 Automated eosinophil count 0.0 10*3/uL 0 .0-0.3 Automated blood basophil count (count/volume) 0.0 10*3/uL 0.0-0.1 Comprehensive metabolic panel - 11/24/19 03:29 Serum or plasma sodium measurement (moles/volume) 138 mmol/L 135-145 Serum or plasma potassium measurement (moles/volume) 4.0 mmol/L 3.6-5.0 Serum or plasma chloride measurement (moles/volume) 105 mmol/L 98-107 Carbon dioxide 24 mmol/L 21-32 Serum or plasma anion gap determination (moles/volume) 9 mmol/L 5-14 Serum or plasma urea nitrogen measurement (mass/volume ) 26 mg/dL 7-18 Serum or plasma creatinine measurement (mass/volume) 0.86 mg/dL 0.60-1.30 Serum or plasma urea nitrogen/creatinine mass ratio 30 NRG Serum or plasma creatinine measurement w ith calculation of estimated glomerular filtration rate > NRG Serum or plasma glucose measurement (mass/volume) 154 mg/dL 70-105 Serum or plasma calcium measurement (mass/volume) 9.0 mg/dL 8.5-10.1 Serum or plasma total bilirubin measurement (mass/volu me) 0.3 mg/dL 0.1-1.0 Serum or plasma alkaline phosphatase josh surement (enzymatic activity/volume) 113 U/L 40-136 Serum or plasma aspartate aminotransfera se measurement (enzymatic activity/volume) 66 U/L 5-34 Serum or plasma alanine aminotransferase measurement (enzymatic activity/volume) 122 U/L 0-55 Serum or plasma protein measurement (mass/volume) 5.9 g/dL 6.4-8.2 Serum or plasma albumin measurement (mass/volume) 3.0 g/dL 3.2-4.5 CALCIUM CORRECTED 9.8 mg/dL 8.5-10.1 Serum or plasma phosphate measurement (m ass/volume) - 11/24/19 03:29 Serum or plasma phosphate measurement (mass/volume) 2.7 mg/dL 2.3-4.7 Magnesium - 11/24/19 03:29 Magnesium 2.2 mg/dL 1.6-2.4 Complete blood count (CBC) with automate d white blood cell (WBC) differential - 11/25/19 05:05 Blood leukocytes automated count (number/volume) 23.9 10*3/uL 4.3-11.0 Blood erythrocytes automated count (number/volume) 4.09 10*6/uL 4.35-5.85 Venous blood hemoglobin measurement (mass/volume) 12.1 g/dL 13.3-17.7 Blood hematocrit (volume fraction) 37 % 40-54 Automated erythrocyte mean corpuscular volume 89 [ foz_us] 80-99 Automated erythrocyte mean corpuscular h emoglobin (mass per erythrocyte) 30 pg 25-34 Automated erythrocyte mean corpuscular h emoglobin concentration measurement (mass/volume) 33 g/dL 32-36 Automated erythrocyte distribution width ratio 15. 1 % 10.0- 14.5 Automated blood platelet count (count/volume) 1056 10*3/uL 130-400 Automated blood platelet mean volume measurement 9.3 [foz_us] 7.4-10.4 Automated blood neutrophils/100 leukocytes 96 % 42-75 Automated blood lymphocytes/100 leukocytes 2 % 12-44 Blood monocytes/100 leukocytes 2 % 0-12 Automated blood eosinophils/100 leukocytes 0 % 0-10 Automated blood basophils/100 leukocytes 0 % 0-10 Blood neutrophils automated count (number/volume) 23.0 10*3 1.8-7.8 Blood lymphocytes automated count (number/volume) 0.4 10*3 1.0-4.0 Blood monocytes automated count (number/volume) 0. 5 10*3 0.0-1.0 Automated eosinophil count 0.0 10*3/uL 0 .0-0.3 Automated blood basophil count (count/volume) 0.0 10*3/uL 0.0-0.1 Comprehensive metabolic panel - 11/25/19 05:05 Serum or plasma sodium measurement (moles/volume) 141 mmol/L 135-145 Serum or plasma potassium measurement (moles/volume) 4.0 mmol/L 3.6-5.0 Serum or plasma chloride measurement (moles/volume) 102 mmol/L 98-107 Carbon dioxide 28 mmol/L 21-32 Serum or plasma anion gap determination (moles/volume) 11 mmol/L 5-14 Serum or plasma urea nitrogen measurement (mass/volume ) 25 mg/dL 7-18 Serum or plasma creatinine measurement (mass/volume) 0.93 mg/dL 0.60-1.30 Serum or plasma urea nitrogen/creatinine mass ratio 27 NRG Serum or plasma creatinine measurement w ith calculation of estimated glomerular filtration rate > NRG Serum or plasma glucose measurement (mass/volume) 165 mg/dL 70-105 Serum or plasma calcium measurement (mass/volume) 9.1 mg/dL 8.5-10.1 Serum or plasma total bilirubin measurement (mass/volu me) 0.3 mg/dL 0.1-1.0 Serum or plasma alkaline phosphatase josh surement (enzymatic activity/volume) 114 U/L 40-136 Serum or plasma aspartate aminotransfera se measurement (enzymatic activity/volume) 56 U/L 5-34 Serum or plasma alanine aminotransferase measurement (enzymatic activity/volume) 151 U/L 0-55 Serum or plasma protein measurement (mass/volume) 6.1 g/dL 6.4-8.2 Serum or plasma albumin measurement (mass/volume) 3.1 g/dL 3.2-4.5 CALCIUM CORRECTED 9.8 mg/dL 8.5-10.1 Serum or plasma phosphate measurement (m ass/volume) - 11/25/19 05:05 Serum or plasma phosphate measurement (mass/volume) 2.7 mg/dL 2.3-4.7 Magnesium - 11/25/19 05:05 Magnesium 2.2 mg/dL 1.6-2.4 Encounters ACCT No. Visit Date/Time Discharge Status Pt. Type Provider Facility Loc./Unit Complaint [id number] 01/18/2019 10:10:00 01/21/2019 11:19: 00 DIS Inpatient Giselle Rosales enter ICU [id number] 01/18/2019 09:12:22 Document Registration [id number] 12/15/2019 13:15:00 12/15/2019 23:59: 59 [facility] Outpatient DEEJAY DE [facility] [id number] 12/06/2018 14:00:00 Document Registration [id number] 01/18/2019 10:10:00 Document Registration [id number] 11/21/2019 18:32:00 16:43:00 DIS Inpatient GISELLE ROSALES DO, [facility] 4TH POST INFLUENZA PNA, SEV ERE SEPSIS [id number] 12/29/2018 08:40:00 23:59:59 CLS Preadmit PORTER PELAEZ OPHTHALMOLOGY TECHNICIAN [facility] SLEEP SLEEP DISORDER, SUSPECTED SLEEP APNEA [id number] 12/29/2018 08:38:00 23:59:59 CLS Preadmit PORTER PELAEZ OPHTHALMOLOGY TECHNICIAN [facility] RT COUGH,COPD,DYSP ISSAC [id number] 12/29/2018 08:36:00 23:59:59 CLS Preadmit PORTER PELAEZ OPHTHALMOLOGY TECHNICIAN [facility] RAD DYSPNEA,COUGH,C OPD [id number] 12/29/2018 08:31:00 23:59:59 CLS Preadmit PORTER PELAEZ OPHTHALMOLOGY TECHNICIAN [facility] RT DYSPNEA,COUGH,C OPD [id number] 12/28/2018 15:13:00 23:59:59 CLS Outpatient PORTER PELAEZ OPHTHALMOLOGY TECHNICIAN [facility] RT DYSPNEA
[2020-04-28] MEDS ORDERED: ACETAMINOPHEN 500 MG TAB (TYLENOL) ONE (15:18)
[2020-04-28 15:31] LABS: BASOPHILS % (AUTO) 0 % (0-10); EOSINOPHILS % (AUTO) 0 % (0-10); HEMATOCRIT 43 % (40-54); HEMOGLOBIN 14.5 G/DL (13.3-17.7); LYMPHOCYTES # (AUTO) 0.6 X 10^3 (1.0-4.0); LYMPHOCYTES % (AUTO) 3 % (12-44); MEAN CORPUSCULAR HEMOGLOBIN 29 PG (25-34); MEAN CORPUSCULAR HGB CONC 34 G/DL (32-36); MEAN CORPUSCULAR VOLUME 86 FL (80-99); MEAN PLATELET VOLUME 9.3 FL (7.4-10.4); MONOCYTES # (AUTO) 1.5 X 10^3 (0.0-1.0); MONOCYTES % (AUTO) 8 % (0-12); NEUTROPHILS # (AUTO) 16.3 X 10^3 (1.8-7.8); NEUTROPHILS % (AUTO) 88 % (42-75); PLATELET COUNT 898 10^3/uL (130-400); RED CELL DISTRIBUTION WIDTH 14.2 % (10.0-14.5); WHITE BLOOD COUNT 18.5 10^3/uL (4.3-11.0)
[2020-04-28 15:41] LABS: POTASSIUM 4.1 MMOL/L (3.6-5.0)
[2020-04-28 15:42] LABS: CALCIUM 8.9 MG/DL (8.5-10.1)
[2020-04-28 15:43] LABS: TOTAL PROTEIN 6.8 GM/DL (6.4-8.2)
[2020-04-28 15:45] LABS: BILIRUBIN,TOTAL 0.7 MG/DL (0.1-1.0); PROTHROMBIN TIME PATIENT 13.9 SEC (12.2-14.7)
--- NOTE | 2020-04-28 15:45 | ED General ---
General Stated Complaint: FEVER/ CHILLS/ SOA Source of Information: Patient Exam Limitations: No Limitations History of Present Illness Date Seen by Provider: Apr 28, 2020 Time Seen by Provider: 15:44 Initial Comments to ER with a cough, increasing shortness of breath, fevers chills starting this morning. Fever up to 103. He has COPD and does have oxygen at home but doesn't typically have to wear it unless he does something physically strenuous. He did have to wear it this morning because he felt more short of breath. Timing/Duration: 1-2 Days Severity: Moderate Associated Systoms: Cough, Shortness of Air Allergies and Home Medications Allergies Coded Allergies: No Known Drug Allergies (Unverified , 11/21/19) Home Medications Aspirin 81 Mg Tablet.dr, 81 MG PO DAILY Prescribed by: KIRA SAWANT on 11/25/19 1509 Cetirizine HCl 10 Mg Tablet, 10 MG PO DAILY, (Reported) Diltiazem HCl 180 Mg Cap.er.24h, 360 MG PO DAILY@0900 Prescribed by: KIRA SAWANT on 11/25/19 1503 Fluticasone/Vilanterol 1 Each Blst.w.dev, 1 PUFF INH DAILY, (Reported) Ipratropium/Albuterol Sulfate 3 Ml Ampul.neb, 3 ML NEB QID PRN for SHORTNESS OF BREATH, (Reported) Metoprolol Succinate 50 Mg Tab.er.24h, 50 MG PO DAILY Prescribed by: KIRA SAWANT on 11/25/19 1503 Multivitamin 1 Each Tablet, 1 TAB PO DAILY, (Reported) Patient Home Medication List Home Medication List Reviewed: Yes Review of Systems Review of Systems Constitutional: see HPI, chills, fever EENTM: see HPI Respiratory: see HPI, cough, short of breath Cardiovascular: no symptoms reported Genitourinary: no symptoms reported Musculoskeletal: no symptoms reported Skin: no symptoms reported Psychiatric/Neurological: No Symptoms Reported Hematologic/Lymphatic: No Symptoms Reported Past Winhkng-Qckbzb-Yivvmy Hx Patient Social History Alcohol Beverage of Choice: Beer Recent Hopitalizations: No Immunizations Up To Date Tetanus Booster (TDap): Unknown PED Vaccines UTD: No Date of Pneumonia Vaccine: Jul 21, 2017 Seasonal Allergies Seasonal Allergies: Yes Past Medical History Surgeries: No Respiratory: Yes COPD Currently Using CPAP: No Currently Using BIPAP: No Cardiac: No Neurological: No Genitourinary: No Gastrointestinal: No Musculoskeletal: No Endocrine: No HEENT: No Cancer: No Psychosocial: No Integumentary: Yes (Spot on left ear "burnt off several yrs ago") Recent Skin Changes Blood Disorders: No Adverse Reaction/Blood Tranf: No Family Medical History Abdominal aortic aneurysm Alzheimer's disease 19 FATHER, , Onset:60 years & older Completed stroke G8 SISTER, Onset:60 years & older FH: blindness 19 FATHER, , Onset:Unknown 19 MOTHER, , Onset:Unknown FH: breast cancer 19 MOTHER, , Onset:40's - 50 FH: colon cancer G8 BROTHER, Onset:60 years & older FH: liver cancer G8 BROTHER, Onset:60 years & older Physical Exam Vital Signs Vital Signs - First Documented 04/28/20 15:55 Temp 39.3 Pulse 104 Resp 18 B/P (MAP) 140/71 (94) Pulse Ox 95 O2 Delivery Nasal Cannula O2 Flow Rate 3.00 Capillary Refill : Height, Weight, BMI Height: '" Weight: lbs. oz. kg; 21.79 BMI Method: General Appearance: No Apparent Distress, WD/WN, Other (speaks in full sentences. 97% on 2 L. Lung sounds diminished with bibasilar crackles.) Eyes: Bilateral Eye Normal Inspection, Bilateral Eye PERRL, Bilateral Eye EOMI HEENT: PERRL/EOMI, TMs Normal Neck: Full Range of Motion, Normal Inspection Respiratory: No Accessory Muscle Use, No Respiratory Distress Cardiovascular: Regular Rate, Rhythm, Normal Peripheral Pulses Gastrointestinal: Normal Bowel Sounds, Non Tender, Soft Extremity: Normal Capillary Refill, Normal Inspection Neurologic/Psychiatric: Alert, Oriented x3 Skin: Normal Color, Warm/Dry Focused Exam Lactate Level 04/28/20 15:10: Lactic Acid Level 0.96 Lactic Acid Level Laboratory Tests Test 04/28/20 15:10 Lactic Acid Level 0.96 MMOL/L (0.50-2.00) Progress/Results/Core Measures Suspected Sepsis SIRS Temperature: Pulse: Respiratory Rate: Laboratory Tests 04/28/20 15:10: White Blood Count 18.5H Blood Pressure / Mean: 04/28/20 15:10: Lactic Acid Level 0.96 Laboratory Tests 04/28/20 15:10: Creatinine 1.20, INR Comment 1.0, Platelet Count 898H, Total Bilirubin 0.7 Results/Orders Lab Results Laboratory Tests Test 04/28/20 15:10 04/28/20 15:45 Range/Units White Blood Count 18.5 H 4.3-11.0 10^3/uL Red Blood Count 4.99 4.35-5.85 10^6/uL Hemoglobin 14.5 13.3-17.7 G/DL Hematocrit 43 40-54 % Mean Corpuscular Volume 86 80-99 FL Mean Corpuscular Hemoglobin 29 25-34 PG Mean Corpuscular Hemoglobin Concent 34 32-36 G/DL Red Cell Distribution Width 14.2 10.0-14.5 % Platelet Count 898 H 130-400 10^3/uL Mean Platelet Volume 9.3 7.4-10.4 FL Neutrophils (%) (Auto) 88 H 42-75 % Lymphocytes (%) (Auto) 3 L 12-44 % Monocytes (%) (Auto) 8 0-12 % Eosinophils (%) (Auto) 0 0-10 % Basophils (%) (Auto) 0 0-10 % Neutrophils # (Auto) 16.3 H 1.8-7.8 X 10^3 Lymphocytes # (Auto) 0.6 L 1.0-4.0 X 10^3 Monocytes # (Auto) 1.5 H 0.0-1.0 X 10^3 Eosinophils # (Auto) 0.0 0.0-0.3 10^3/uL Basophils # (Auto) 0.0 0.0-0.1 10^3/uL Neutrophils % (Manual) 86 % Lymphocytes % (Manual) 3 % Monocytes % (Manual) 7 % Reactive Lymphocytes 4 % Blood Morphology Comment NORMAL Prothrombin Time 13.9 12.2-14.7 SEC INR Comment 1.0 0.8-1.4 Sodium Level 138 135-145 MMOL/L Potassium Level 4.1 3.6-5.0 MMOL/L Chloride Level 105 98-107 MMOL/L Carbon Dioxide Level 19 L 21-32 MMOL/L Anion Gap 14 5-14 MMOL/L Blood Urea Nitrogen 14 7-18 MG/DL Creatinine 1.20 0.60-1.30 MG/DL Estimat Glomerular Filtration Rate 60 BUN/Creatinine Ratio 12 Glucose Level 98 70-105 MG/DL Lactic Acid Level 0.96 0.50-2.00 MMOL/L Calcium Level 8.9 8.5-10.1 MG/DL Corrected Calcium 8.9 8.5-10.1 MG/DL Total Bilirubin 0.7 0.1-1.0 MG/DL Aspartate Amino Transf (AST/SGOT) 23 5-34 U/L Alanine Aminotransferase (ALT/SGPT) 18 0-55 U/L Alkaline Phosphatase 110 40-136 U/L Total Protein 6.8 6.4-8.2 GM/DL Albumin 4.0 3.2-4.5 GM/DL My Orders Orders - JENELLE SIMMONS APRN Cbc With Automated Diff (04/28/20 14:51) Comprehensive Metabolic Panel (04/28/20 14:51) Protime With Inr (04/28/20 14:51) Ua Culture If Indicated (04/28/20 14:51) Chest 1 View, Ap/Pa Only (04/28/20 14:51) Ed Iv/Invasive Line Start (04/28/20 14:51) Acetaminophen Tablet (Tylenol Tablet) (04/28/20 15:18) Manual Differential (04/28/20 15:10) Procalcitonin (Pct) (04/28/20 15:35) Blood Culture (04/28/20 15:35) Lactic Acid Analyzer (04/28/20 15:35) Coronavirus Sars-Cov-2 So 2018 (04/28/20 15:35) Cefepime Injection (Maxipime Injection) (04/28/20 16:30) Medications Given in ED Current Medications Medications Dose Ordered Sig/Cody Route Start Time Stop Time Status Last Admin Dose Admin Acetaminophen 500 mg STK-MED ONCE .ROUTE 04/28/20 15:18 04/28/20 15:22 DC 04/28/20 15:20 500 MG Vital Signs/I&O 04/28/20 15:55 Temp 39.3 Pulse 104 Resp 18 B/P (MAP) 140/71 (94) Pulse Ox 95 O2 Delivery Nasal Cannula O2 Flow Rate 3.00 Capillary Refill : Departure Communication (Admissions) discussed with patient the leukocytosis and recommendation for admission for IV antibiotics. He states "how about some good drugs and sending me home". Discussed with him the risks of going home. He states "I won't hold U accountable, this is my decision". I'll have him sign AGAINST MEDICAL ADVICE form. We'll do 2 g of cefepime here plus Solu-Medrol discharged home on prednisone taper and Levaquin. Impression Primary Impression: Pneumonia Qualified Codes: J18.9 - Pneumonia, unspecified organism Additional Impressions: Thrombocytosis Leukocytosis Qualified Codes: D72.828 - Other elevated white blood cell count Disposition: AGAINST MEDICAL ADVICE Condition: Against Medical Advice Departure-Patient Inst. Decision time for Depature: 16:22 Referrals: DEEJAY DE MD (PCP/Family) Primary Care Physician Patient Instructions: Pneumonia, Adult (DC) Add. Discharge Instructions: 1. Return to ER for any worsening shortness of breath, fevers or other concerns. Take the antibiotics and steroids as directed. Follow-up with your regular doctor on Thursday for recheck. Scripts Prednisone (Prednisone) 20 Mg Tab 40 MG PO DAILY, #6 TAB 0 Refills Prov: JENELLE SIMMONS APRN 04/28/20 Levofloxacin (Levaquin) 750 Mg Tablet 750 MG PO DAILY, #5 TAB Prov: JENELLE SIMMONS APRN 04/28/20 Copy Copies To 1: DEEJAY DE MD, PETER J APRN Apr 28, 2020 15:45
[2020-04-28 15:47] LABS: CREATININE SERUM 1.2 MG/DL (0.60-1.30)
[2020-04-28 15:58] LABS: LYMPHOCYTES % (MANUAL) 3 %; MONOCYTES % (MANUAL) 7 %; NEUTROPHILS % (MANUAL) 86 %
[2020-04-28 15:59] LABS: RBC MORPH NORMAL; REACTIVE LYMPHOCYTES 4 %
--- NOTE | 2020-04-28 16:15 | Diagnostic Imaging Report ---
Chest 1 view, AP/PA only. Indication: Fever and chills. Comparison: 12/05/2013. Findings: Chronic reticular and nodular opacities in the left midlung zone have improved but persist. Hazy opacities in the right infrahilar region have mildly progressed. No pleural effusion or pneumothorax. Hyperaerated lung volume is unchanged, likely due to chronic obstructive pulmonary disease. Impression: Increased right basilar hazy opacities could be due to a pneumonia in the appropriate setting. Dictated by: Dictated on workstation # [id number]
[2020-04-28] MEDS ORDERED: CEFEPIME 1 GM (MAXIPIME) VIAL ONE (16:19)
[2020-04-28] MEDS ORDERED: methylPREDNISolone 125 MG (Solu-MEDROL) VIAL ONE (16:19)
[2020-04-28] MEDS ORDERED: LEVO750T9 PO (16:24)
[2020-04-28] MEDS ORDERED: PRD20T PO (16:24)
[2020-04-28 16:28] VITALS: BP 136/72
[2020-04-28] MEDS ORDERED: CEFEPIME INJECTION 2,000 MG in WATER (STERILE) FOR INJECTION 20 ML IV ONE (16:30)
== END 2020-04-28 16:34 | disposition left against medical advice (07) ==
LOC: EDUNIT# 14:47 → ER 14:48
DX: J18.9 Pneumonia, unspecified organism (principal); D47.3 Essential (hemorrhagic) thrombocythemia; D72.829 Elevated white blood cell count, unspecified; J44.9 Chronic obstructive pulmonary disease, unspecified; Z20.828 Contact with and (suspected) exposure to other viral communicable diseases; Z79.82 Long term (current) use of aspirin; Z79.51 Long term (current) use of inhaled steroids; Z80.3 Family history of malignant neoplasm of breast; Z80.0 Family history of malignant neoplasm of digestive organs
CPT/HCPCS: 71045; 80053; 83605; 84145; 85007; 85027; 85610; 87040; 99284; U0002; 36415; 87635

== ENCOUNTER 2021-01-04 15:29 | Emergency (ER) | payer MEDICARE ==
[~2021-01-04] VITALS: Ht 185.5 cm; Wt 76.2 kg
[~2021-01-04 15:29] MED LIST changes: +ASPI-1238 PO; -ASPI-983 PO; +LEVO750T9 PO
[2021-01-04] MEDS ORDERED: RX-ALBUTEROL INHALER (VENTOLIN HFA) 18 GM IH STA (16:03)
[2021-01-04 16:09] LABS: BASOPHILS % (AUTO) 0 % (0-10); EOSINOPHILS % (AUTO) 1 % (0-10); HEMATOCRIT 40 % (40-54); HEMOGLOBIN 13.5 G/DL (13.3-17.7); LYMPHOCYTES % (AUTO) 8 % (12-44); MEAN CORPUSCULAR HEMOGLOBIN 29 PG (25-34); MEAN CORPUSCULAR HGB CONC 34 G/DL (32-36); MEAN CORPUSCULAR VOLUME 87 FL (80-99); MEAN PLATELET VOLUME 8.6 FL (7.4-10.4); MONOCYTES % (AUTO) 14 % (0-12); NEUTROPHILS % (AUTO) 76 % (42-75); PLATELET COUNT 740 10^3/uL (130-400); WHITE BLOOD COUNT 13.6 10^3/uL (4.3-11.0)
[2021-01-04 16:10] LABS: BASOPHILS # (AUTO) 0.1 10^3/uL (0.0-0.1); EOSINOPHILS # (AUTO) 0.1 10^3/uL (0.0-0.3); LYMPHOCYTES # (AUTO) 1.1 X 10^3 (1.0-4.0); MONOCYTES # (AUTO) 1.9 X 10^3 (0.0-1.0); NEUTROPHILS # (AUTO) 10.4 X 10^3 (1.8-7.8)
[2021-01-04] MEDS ORDERED: methylPREDNISolone 125 MG (Solu-MEDROL) VIAL IVP ONE (16:15)
--- NOTE | 2021-01-04 16:18 | Diagnostic Imaging Report ---
INDICATION: Sepsis, cough. Shortness of air. COMPARISON: 04/28/2020 FINDINGS: Frontal and lateral views of the chest demonstrate normal heart size and pulmonary vascularity. Evaluation of the lung nascimento demonstrates background moderate emphysematous changes. There is hyperinflation with flattening of the hemidiaphragms. Note is also made of 1.8 cm spiculated appearing nodular density within the right lung base. This is new when compared to 04/28/2020. There is no large effusion or pneumothorax. Osseous structures show no gross acute abnormalities. IMPRESSION: 1. No evidence of failure or focal infiltrate. 2. Background COPD changes. 3. Suspicious nodular opacity within the right lung base. Correlation with CT chest is recommended and could be performed on a nonemergent basis. Dictated by: Dictated on workstation # [id number]
[2021-01-04 16:27] LABS: ABG BASE EXCESS 3.5 MMOL/L (-2.5-2.5); ABG OXYGEN SATURATION 92 % (94-100); ABG PCO2 40 MMHG (35-45); ABG PH 7.45 (7.37-7.43); ABG PO2 62 MMHG (79-93)
[2021-01-04 16:28] LABS: INSPIRED O2 ROOM AIR; PATIENT TEMP 36.4; VENTILATOR NO
[2021-01-04 16:30] LABS: ALKALINE PHOSPHATASE 133 U/L (40-136); BILIRUBIN,TOTAL 0.4 MG/DL (0.1-1.0); BUN/CREATININE RATIO 20; CARBON DIOXIDE 25 MMOL/L (21-32); CHLORIDE 98 MMOL/L (98-107); GFR ESTIMATED > 60; GLUCOSE 122 MG/DL (70-105); INR 1.7 (0.8-1.4); POTASSIUM 4.2 MMOL/L (3.6-5.0); PROTHROMBIN TIME PATIENT 19.8 SEC (12.2-14.7); SODIUM 133 MMOL/L (135-145)
[2021-01-04 16:31] LABS: ALANINE AMINOTRANSFERASE 24 U/L (0-55); ALBUMIN 3.5 GM/DL (3.2-4.5); TOTAL PROTEIN 6.6 GM/DL (6.4-8.2)
[2021-01-04 17:02] LABS: EOSINOPHILS % (MANUAL) 1 %; LYMPHOCYTES % (MANUAL) 2 %; MONOCYTES % (MANUAL) 13 %; NEUTROPHILS % (MANUAL) 84 %
[2021-01-04 17:03] LABS: PLATELET ESTIMATE INCREASED; POLYCHROMASIA SLIGHT; RBC MORPH LRG PLTS; TARGET CELLS SLIGHT; TOXIC GRANULATION/VACUOLAZATIO 4+
[2021-01-04] MEDS ORDERED: GUAI120013 PO (17:54)
--- NOTE | 2021-01-04 17:54 | ED General ---
General Chief Complaint: Respiratory Problems Stated Complaint: SOA Nursing Triage Note: Patient reports he has had pneumonia since the beginning of December, states he completed a course of levaquin and prednisone this week. Patient reports reports cough and shortness of breath worsened last night. He states he wears 2 liters of oxygen at night and anytime he is active during the day. Patient reports a history of COPD. He reports he went to the clinic today and was referred to the ED for evaluation. Nursing Sepsis Screen: No Definite Risk Source of Information: Patient History of Present Illness Date Seen by Provider: Jan 04, 2021 Time Seen by Provider: 15:15 Initial Comments Patient is a 70-year-old male with history of COPD who presents with prolonged 3-week period of cough, shortness of breath and wheezing. He has completed a 10-day course of Levaquin and a 5-day course of prednisone in the past 10 days. He denies fever chills, nausea vomiting or sweats. Denies leg pain swelling. No chest pain but does report some chest tightness. Patient has a loose non productive cough. He states he feels he would be much better if he could expectorate his sputum. Denies abdominal pain. No nausea or vomiting. No constipation diarrhea. Denies dizziness or lightheadedness. No other acute symptoms or complaints. Patient has not been diagnosed with Covid in the past 12 months and is declined testing in the past several months due to concerns for nosebleeds while on anticoagulation therapy. Timing/Duration: Other (3 weeks) Severity: Mild Modifying Factors: improves with Other Associated Systoms: Other Allergies and Home Medications Allergies Coded Allergies: No Known Drug Allergies (Unverified , 11/21/19) Home Medications Aspirin 81 Mg Tablet.dr, 81 MG PO DAILY Prescribed by: KIRA SAWANT on 11/25/19 1509 Cetirizine HCl 10 Mg Tablet, 10 MG PO DAILY, (Reported) Diltiazem HCl 180 Mg Cap.er.24h, 360 MG PO DAILY@0900 Prescribed by: KIRA SAWANT on 11/25/19 1503 Fluticasone/Vilanterol 1 Each Blst.w.dev, 1 PUFF INH DAILY, (Reported) Ipratropium/Albuterol Sulfate 3 Ml Ampul.neb, 3 ML NEB QID PRN for SHORTNESS OF BREATH, (Reported) Levofloxacin 750 Mg Tablet, 750 MG PO DAILY Prescribed by: JENELLE SIMMONS on 04/28/20 1624 Metoprolol Succinate 50 Mg Tab.er.24h, 50 MG PO DAILY Prescribed by: KIRA SAWANT on 11/25/19 1503 Multivitamin 1 Each Tablet, 1 TAB PO DAILY, (Reported) Prednisone 20 Mg Tab, 40 MG PO DAILY Prescribed by: JENELLE SIMMONS on 04/28/20 1624 Patient Home Medication List Home Medication List Reviewed: Yes Review of Systems Review of Systems Constitutional: see HPI EENTM: see HPI Respiratory: see HPI Cardiovascular: see HPI Gastrointestinal: see HPI Genitourinary: see HPI Musculoskeletal: see HPI Skin: see HPI Psychiatric/Neurological: See HPI Immunological/Allergic: see HPI Past Kgexzla-Odpowu-Nkvgmf Hx Patient Social History Alcohol Use: Denies Use Number of Drinks Today: AA Alcohol Beverage of Choice: Beer Type Used: Smokeless Tobacco 2nd Hand Smoke Exposure: No Recent Infectious Disease Expo: No Recent Hopitalizations: No Immunizations Up To Date Tetanus Booster (TDap): Unknown PED Vaccines UTD: No Date of Pneumonia Vaccine: Jul 21, 2017 Seasonal Allergies Seasonal Allergies: Yes Past Medical History Surgeries: No Respiratory: Yes COPD Currently Using CPAP: No Currently Using BIPAP: No Cardiac: Yes Hypertension Neurological: No Genitourinary: No Gastrointestinal: No Musculoskeletal: No Endocrine: No HEENT: No Cancer: No Psychosocial: No Integumentary: Yes (Spot on left ear "burnt off several yrs ago") Recent Skin Changes Blood Disorders: No Adverse Reaction/Blood Tranf: No Family Medical History Abdominal aortic aneurysm Alzheimer's disease 19 FATHER, , Onset:60 years & older Completed stroke G8 SISTER, Onset:60 years & older FH: blindness 19 FATHER, , Onset:Unknown 19 MOTHER, , Onset:Unknown FH: breast cancer 19 MOTHER, , Onset:40's - 50 FH: colon cancer G8 BROTHER, Onset:60 years & older FH: liver cancer G8 BROTHER, Onset:60 years & older Physical Exam Vital Signs Vital Signs - First Documented 01/04/21 15:39 Temp 36.4 Pulse 80 Resp 22 B/P (MAP) 135/68 (90) Pulse Ox 93 O2 Delivery Room Air Capillary Refill : Less Than 3 Seconds Height, Weight, BMI Height: '" Weight: lbs. oz. kg; 22.00 BMI Method: General Appearance: Other Eyes: Bilateral Eye Normal Inspection, Bilateral Eye PERRL, Bilateral Eye EOMI HEENT: PERRL/EOMI, Pharynx Normal, Moist Mucous Membranes Neck: Full Range of Motion, Supple Respiratory: Decreased Breath Sounds, Rhonci Cardiovascular: Regular Rate, Rhythm, No Murmur, Normal Peripheral Pulses Gastrointestinal: Non Tender, Soft Rectal: Other Genital/Rectal: Other Back: Normal Inspection, No CVA Tenderness, No Vertebral Tenderness Extremity: Normal Capillary Refill, Non Tender, No Calf Tenderness Neurologic/Psychiatric: Oriented x3, Normal Mood/Affect, product specialist II-XII Norm as Tested Reflexes: 4+ Bicep (R), 4+ Tricep (R) Skin: Normal Color Lymphatic: No Adenopathy Focused Exam Sepsis Stage: Ruled Out Lactate Level 01/04/21 16:00: Lactic Acid Level 0.88 Lactic Acid Level Laboratory Tests Test 01/04/21 16:00 Lactic Acid Level 0.88 MMOL/L (0.50-2.00) Progress/Results/Core Measures Suspected Sepsis Recent Fever Within 48 Hours: No Infection Criteria Present: Documented Infection New/Unexplained Altered Menta: No Sepsis Screen: No Definite Risk SIRS Temperature: Pulse: 80 Respiratory Rate: 22 Laboratory Tests 01/04/21 16:00: White Blood Count 13.6H Blood Pressure 135 /68 Mean: 90 01/04/21 16:00: Lactic Acid Level 0.88 Laboratory Tests 01/04/21 16:00: Creatinine 1.00, INR Comment 1.7H, Platelet Count 740H, Total Bilirubin 0.4 Results/Orders Lab Results Laboratory Tests Test 01/04/21 16:00 01/04/21 16:20 Range/Units White Blood Count 13.6 H 4.3-11.0 10^3/uL Red Blood Count 4.58 4.35-5.85 10^6/uL Hemoglobin 13.5 13.3-17.7 G/DL Hematocrit 40 40-54 % Mean Corpuscular Volume 87 80-99 FL Mean Corpuscular Hemoglobin 29 25-34 PG Mean Corpuscular Hemoglobin Concent 34 32-36 G/DL Red Cell Distribution Width 16.3 H 10.0-14.5 % Platelet Count 740 H 130-400 10^3/uL Mean Platelet Volume 8.6 7.4-10.4 FL Neutrophils (%) (Auto) 76 H 42-75 % Lymphocytes (%) (Auto) 8 L 12-44 % Monocytes (%) (Auto) 14 H 0-12 % Eosinophils (%) (Auto) 1 0-10 % Basophils (%) (Auto) 0 0-10 % Neutrophils # (Auto) 10.4 H 1.8-7.8 X 10^3 Lymphocytes # (Auto) 1.1 1.0-4.0 X 10^3 Monocytes # (Auto) 1.9 H 0.0-1.0 X 10^3 Eosinophils # (Auto) 0.1 0.0-0.3 10^3/uL Basophils # (Auto) 0.1 0.0-0.1 10^3/uL Neutrophils % (Manual) 84 % Lymphocytes % (Manual) 2 % Monocytes % (Manual) 13 % Eosinophils % (Manual) 1 % Toxic Granulation 4+ Platelet Estimate INCREASED Polychromasia SLIGHT Target Cells SLIGHT Blood Morphology Comment LRG PLTS Prothrombin Time 19.8 H 12.2-14.7 SEC INR Comment 1.7 H 0.8-1.4 Activated Partial Thromboplast Time 57 H 24-35 SEC D-Dimer 0.24 0.00-0.49 UG/ML Sodium Level 133 L 135-145 MMOL/L Potassium Level 4.2 3.6-5.0 MMOL/L Chloride Level 98 98-107 MMOL/L Carbon Dioxide Level 25 21-32 MMOL/L Anion Gap 10 5-14 MMOL/L Blood Urea Nitrogen 20 H 7-18 MG/DL Creatinine 1.00 0.60-1.30 MG/DL Estimat Glomerular Filtration Rate > 60 BUN/Creatinine Ratio 20 Glucose Level 122 H 70-105 MG/DL Lactic Acid Level 0.88 0.50-2.00 MMOL/L Calcium Level 9.0 8.5-10.1 MG/DL Corrected Calcium 9.4 8.5-10.1 MG/DL Total Bilirubin 0.4 0.1-1.0 MG/DL Aspartate Amino Transf (AST/SGOT) 21 5-34 U/L Alanine Aminotransferase (ALT/SGPT) 24 0-55 U/L Alkaline Phosphatase 133 40-136 U/L Troponin I < 0.30 <0.30 NG/ML Pro-B-Type Natriuretic Peptide 83.3 H <75.0 PG/ML Total Protein 6.6 6.4-8.2 GM/DL Albumin 3.5 3.2-4.5 GM/DL Blood Gas Puncture Site RIGHT WRIST Blood Gas Patient Temperature 36.4 Arterial Blood pH 7.45 H 7.37-7.43 Arterial Blood Partial Pressure CO2 40 35-45 MMHG Arterial Blood Partial Pressure O2 62 L 79-93 MMHG Arterial Blood HCO3 28 H 23-27 MMOL/L Arterial Blood Total CO2 29.0 21.0-31.0 MMOL/L Arterial Blood Oxygen Saturation 92 L 94-100 % Arterial Blood Base Excess 3.5 H -2.5-2.5 MMOL/L Pacheco Test N/A Blood Gas Ventilator Setting NO Blood Gas Inspired Oxygen ROOM AIR My Orders Orders - TOMAS LOONEY DO Cbc With Automated Diff (01/04/21 15:54) Comprehensive Metabolic Panel (01/04/21 15:54) Blood Culture (01/04/21 15:54) Sputum Culture (01/04/21 15:54) Urinalysis (01/04/21 15:54) Urine Culture (01/04/21 15:54) Protime With Inr (01/04/21 15:54) Partial Thromboplastin Time (01/04/21 15:54) Chest 1 View Ap/Pa Only (01/04/21 15:54) Ed Iv/Invasive Line Start (01/04/21 15:54) Ed Iv/Invasive Line Start (01/04/21 15:54) Vital Signs Adult Sepsis Patie Q15M (01/04/21 15:54) O2 (01/04/21 15:54) Remove Rings In Anticipation O (01/04/21 15:54) Lactic Acid Analyzer (01/04/21 15:54) Troponin I Fs (01/04/21 16:03) Probnp Fs (01/04/21 16:03) Methylprednisolone Sod Succ (Solu-Medrol (01/04/21 16:15) Rx-Albuterol Inhaler (Rx-Ventolin Hfa) (01/04/21 16:03) Fibrin Degradation Products (01/04/21 16:03) Arterial Blood Gas (01/04/21 16:03) Manual Differential (01/04/21 16:00) Medications Given in ED Current Medications Medications Dose Ordered Sig/Cody Route Start Time Stop Time Status Last Admin Dose Admin Methylprednisolone Sodium Succinate 125 mg ONCE ONCE IVP 01/04/21 16:15 01/04/21 16:16 DC 01/04/21 16:24 125 MG Vital Signs/I&O 01/04/21 15:39 Temp 36.4 Pulse 80 Resp 22 B/P (MAP) 135/68 (90) Pulse Ox 93 O2 Delivery Room Air Capillary Refill : Less Than 3 Seconds Blood Pressure Mean: 90 Departure Communication (Admissions) Chest x-ray: No acute cardiopulmonary infiltrate. EKG: Normal sinus rhythm, no acute ST-T wave changes. Patient with chronic bronchitis with COPD. Recent steroids and antibiotics. P atient without respiratory distress or hypoxia in the emergency department. States his O2 saturations typically run in the upper 80s and has oxygen available as needed basis at home. Patient once again declines Covid testing. Will continue home therapy with the addition of Mucinex. Recommendations are for continued treatment and PCP follow-up. Return precautions reviewed. Olivia iesmita verbalizes understanding agreement with discharge instructions prior to departure. Impression Primary Impression: Chronic bronchitis with COPD (chronic obstructive pulmonary disease) Disposition: 01 HOME, SELF-CARE Condition: Stable Departure-Patient Inst. Referrals: DEEJAY DE MD (PCP/Family) Primary Care Physician Patient Instructions: Chronic Bronchitis, Chronic Obstructive Pulmonary Disease (COPD), Including Emphysema Add. Discharge Instructions: Please continue home medications and take Mucinex 1200 mg twice daily as directed. Follow-up with your PCP in 3 to 5 days for reevaluation. Return to the ED if new or worsening symptoms. All discharge instructions reviewed with patient and/or family. Voiced understanding. Scripts Guaifenesin (Mucinex) 1,200 Mg Tab.er.12h 1200 MG PO Q12H, #60 TAB Prov: TOMAS LOONEY DO 01/04/21 TOMAS LOONEY DO Jan 04, 2021 17:54
[2021-01-04 18:04] VITALS: BP 140/63
== END 2021-01-04 18:04 | disposition home or self-care (01) ==
LOC: EDUNIT# 15:29 → ER FS 15:30
DX: J44.9 Chronic obstructive pulmonary disease, unspecified (principal); I10 Essential (primary) hypertension; Z80.3 Family history of malignant neoplasm of breast; Z80.0 Family history of malignant neoplasm of digestive organs; Z79.82 Long term (current) use of aspirin; Z79.52 Long term (current) use of systemic steroids
CPT/HCPCS: 36415; 71045; 80053; 82805; 83605; 83880; 84484; 85007; 85027; 85379; 85610; 85730; 87040

== ENCOUNTER → 2021-01-29 | Outpatient (CLI) | payer MEDICARE ==
[~2021-01-29] MED LIST changes: +CATHETER FLUSH 10 ML SYR IV PRN; +HOLD METFORMIN - RECEIVED CONTRAST 20 ML VIAL IV SCH; +IOHEXOL 350 MG/ML 100 ML (OMNIPAQUE 350) VIAL IV ONE; +NS 100 ML (IVPB) BAG IV ONE
--- NOTE | 2021-01-29 15:14 | Diagnostic Imaging Report ---
PROCEDURE: CT chest with contrast, CT abdomen with and without contrast. TECHNIQUE: Precontrast acquisitions were acquired through the abdomen. Multiple contiguous axial images were obtained through the chest and abdomen after administration of intravenous contrast. Auto Exposure Controls were utilized during the CT exam to meet ALARA standards for radiation dose reduction. INDICATION: Pulmonary nodules/consolidation follow-up. COMPARISON: CT chest from 11/22/2019. FINDINGS: CT CHEST: No endoluminal nodule within the trachea. Severe centrilobular emphysema is unchanged. The 10 mm nodule in the posterior aspect of the right upper lobe is stable (image 78, series 12). The nodule in the superior segment of the right lower lobe with associated architectural distortion is also stable measuring approximately 9 mm (image 78, series 12). There is a new spiculated nodule in the right lower lobe measuring 18 mm (image 138, series 12). No pleural effusion or pneumothorax. No supraclavicular or axillary lymphadenopathy. Thyroid is normal. Right lower paratracheal lymph node measures 11 mm and is unchanged. Partially calcified subcarinal lymph node is also unchanged. No new mediastinal or hilar lymphadenopathy. Heart is normal in size without pericardial effusion. Normal caliber thoracic aorta. No lytic or blastic skeletal lesions that would suggest metastatic disease. CT ABDOMEN: No free intraperitoneal air or fluid. The liver has numerous cysts present that all measure less than 2 cm in size and are stable. No solid liver mass would be suspicious for metastasis. Gallbladder, spleen and pancreas are normal. No adrenal mass. Bilateral renal cysts are present. No solid renal mass or obstructive uropathy. No dilated loops of bowel to indicate bowel obstruction. Visualized portions of the appendix are normal. No abdominal lymphadenopathy. No concerning focal osseous lesion. IMPRESSION: 1. Spiculated 18 mm right lower lobe pulmonary nodule must be considered primary lung cancer in this high-risk patient. Additionally, this is new since CT of 11/22/2019. PET CT could be performed for further assessment to evaluate for metabolic activity. Alternatively, thoracic surgery consultation could be performed for further management options. 2. The other pulmonary nodules are stable since 11/22/2019. 3. No features of metastatic disease in the abdomen. Dictated by: Dictated on workstation # [id number]
== END ==
LOC: LAB FS 13:58
PROVIDERS: ATTEND Family Medicine
DX: R91.8 Other nonspecific abnormal finding of lung field (principal); K76.89 Other specified diseases of liver
CPT/HCPCS: 71260; 74170

== ENCOUNTER 2021-09-30 18:56 | Inpatient (IN) | payer MEDICARE ==
[~2021-09-30] VITALS: Ht 185 cm; Wt 76.8 kg
[~2021-09-30 18:56] MED LIST changes: -CATHETER FLUSH 10 ML SYR IV PRN; -HOLD METFORMIN - RECEIVED CONTRAST 20 ML VIAL IV SCH; -IOHEXOL 350 MG/ML 100 ML (OMNIPAQUE 350) VIAL IV ONE; -NS 100 ML (IVPB) BAG IV ONE
[2021-09-30] MEDS ORDERED: LACTATED RINGERS 1,000 ML IV ONE ×2 (19:00→20:00)
[2021-09-30] MEDS ORDERED: ACETAMINOPHEN 500 MG TAB (TYLENOL) PO PRN (19:00)
[2021-09-30] MEDS ORDERED: ONDANSETRON 4 MG/2 ML (SDV) Z0FRAN IVP ONE (19:15)
[2021-09-30] MEDS ORDERED: IBUPROFEN 800 MG (MOTRIN) TAB PO ONE (19:15)
[2021-09-30 19:17] LABS: BASOPHILS % (AUTO) 0 % (0-10); HEMOGLOBIN 13.3 g/dL (13.3-17.7); MEAN CORPUSCULAR VOLUME 89 fL (80-99); MEAN PLATELET VOLUME 9.8 fL (9.0-12.2)
[2021-09-30 19:19] LABS: EOSINOPHILS % (AUTO) 0 % (0-10); HEMATOCRIT 40 % (40-54); LYMPHOCYTES # (AUTO) 0.6 10^3/uL (1.0-4.0); LYMPHOCYTES % (AUTO) 5 % (12-44); MEAN CORPUSCULAR HEMOGLOBIN 29 pg (25-34); MEAN CORPUSCULAR HGB CONC 33 g/dL (32-36); MONOCYTES # (AUTO) 0.7 10^3/uL (0.0-1.0); MONOCYTES % (AUTO) 7 % (0-12); NEUTROPHILS # (AUTO) 9.2 10^3/uL (1.8-7.8); NEUTROPHILS % (AUTO) 87 % (42-75); PLATELET COUNT 577 10^3/uL (130-400); WHITE BLOOD COUNT 10.6 10^3/uL (4.3-11.0)
[2021-09-30] MEDS ORDERED: ALBUTEROL (19:28)
[2021-09-30] MEDS ORDERED: RIVA20TA PO (19:28)
[2021-09-30 19:31] LABS: FIBRIN DEGRADATION PRODUCTS 1.41 UG/ML (0.00-0.49); INR 2.8 (0.8-1.4); PROTHROMBIN TIME PATIENT 29.6 SEC (12.2-14.7)
--- NOTE | 2021-09-30 19:39 | ED Respiratory ---
General Chief Complaint: COVID19 Suspect/Confirmed Stated Complaint: SOA/FEVER/WEAKNESS Nursing Triage Note: TO ED VIA [facility] FROM HOME TO ROOM 9 NEGATIVE PRESSURE ROOM. PT HAS HAD VOMITING, FEVER, WEAKNESS, AND INCREASED SOA SINCE LAST THURSDAY. WEARS HOME O2 PRN. PER EMS PT WAS NOT WEARING O2 ON THEIR ARRIVAL AND SATS 70-80% ON RA. TEMP 103.2 EN ROUTE, BLOOD SUGAR 101 MG/DL, DUONEB GIVEN AT 1815 EN ROUTE. PT SATS INCREASED TO MID 90s ON 5L O2 VIA NC. Source: patient, EMS History of Present Illness Date Seen by Provider: Sep 30, 2021 Time Seen by Provider: 18:58 Initial Comments PT ARRIVES VIA EMS FROM HOME PT STATES HE HAS BEEN SICK SINCE Thursday09/27/21 C/O PRODUCTIVE COUGH WITH THICK COLORED SPUTUM TEMP WAS 104 THIS EVENING AT HOME, BUT HAS NOT TAKEN ANYTHING FOR FEVER AT ANY TIME C/O SHORTNESS OF BREATH--HAS COPD AND HAS HOME O2, SUPPOSED TO WEAR AT 2L/NC, AND INCREASED IT TO 3L/NC TODAY WITHOUT IMPROVEMENT IN SHORTNESS OF BREATH. PT WAS NOT WEARING ANY O2 WHEN THEY ARRIVED AT SCENE AND O2 SATS WERE 70-80% ON ROOM AIR. EMS GAVE ALBUTEROL NEB TREATMENT ENROUTE AND PLACED ON 8L/NC AND PT WITH O2 SATS UP TO 97%. PT STATES HE USED ALBUTEROL NEBULIZER AND INHALER AT 1700 THIS EVENING WITHOUT RELIEF C/O MILD HEADACHE C/O BODY ACHES C/O NAUSEA/VOMITING/DIARRHEA--HAS VOMITED > 5 TIMES TODAY, AND HAD UNKNOWN NUMBER OF DIARRHEA STOOLS TODAY NO ABDOMINAL PAIN IS URINATING, BUT NOT MUCH PT IS DRINKING SOME LIQUIDS, BUT NOT MUCH FOOD NO LOSS OF TASTE OR SMELL C/O MUCH FATIGUE NO CHEST PAIN OR PAIN WITH BREATHING PT ALSO HAS HISTORY OF ATRIAL FIBRILLATION, ON XARELTO PT HAS NOT TAKEN ANYTHING ELSE FOR SYMPTOMS AT ANY TIME HAS NOT SOUGHT CARE UNTIL TONIGHT. STATES SYMPTOMS ARE NOT WORSE TONIGHT, MADE HIM COME TO ER NO KNOWN SICK CONTACTS-- IS NOT ILL PT HAS HAD COVID-19 VACCINE X 2 --DOES NOT RECALL WHAT MONTH, BUT HAS BEEN LESS THAN 6 MONTHS. HAS NOT HAD FLU VACCINE. PCP: DR. DE IN [place] Allergies and Home Medications Allergies Coded Allergies: No Known Drug Allergies (Unverified , 11/21/19) Patient Home Medication List Home Medication List Reviewed: Yes Aspirin (Aspirin EC) 81 Mg Tablet.dr, 81 MG PO DAILY Prescribed by: KIRA SAWANT on 11/25/19 1509 Last Action: Last Taken Edited Cetirizine HCl (Cetirizine HCl) 10 Mg Tablet, 10 MG PO DAILY, (Reported) Entered as Reported by: SEJAL CARTWRIGHT on 11/22/19851 Last Action: Last Taken Edited Diltiazem HCl (Diltiazem 24Hr ER) 180 Mg Cap.er.24h, 360 MG PO DAILY@0900 Prescribed by: KIRA SAWANT on 11/25/19 1503 Last Action: Last Taken Edited Fluticasone/Vilanterol (Breo Ellipta 100-25 Mcg INH) 1 Each Blst.w.dev, 1 PUFF INH DAILY, (Reported) Entered as Reported by: SEJAL CARTWRIGHT on 11/22/19851 Last Action: Last Taken Edited Guaifenesin (Mucinex) 1,200 Mg Tab.er.12h, 1,200 MG PO Q12H Prescribed by: TOMAS LOONEY on 01/04/211753 Last Action: Last Taken Edited Ipratropium/Albuterol Sulfate (Iprat-Albut 0.5-3(2.5) mg/3 ml) 3 Ml Ampul.neb, 3 ML NEB QID PRN for SHORTNESS OF BREATH, (Reported) Entered as Reported by: SEJAL CARTWRIGHT on 11/22/19851 Last Action: Last Taken Edited Multivitamin (Multivitamins) 1 Each Tablet, 1 TAB PO DAILY, (Reported) Entered as Reported by: SEJAL CARTWRIGHT on 11/22/19851 Last Action: Last Taken Edited Rivaroxaban (Xarelto) 20 Mg Tablet, (Reported) Entered as Reported by: HÉCTOR HERRERA on 09/30/211927 Last Action: New Order [Albuterol] , (Reported) Entered as Reported by: HÉCTOR HERRERA on 09/30/211927 Last Action: New Order Discontinued Medications Levofloxacin (Levaquin) 750 Mg Tablet, 750 MG PO DAILY Discontinued Reason: No Longer Taking Prescribed by: JENELLE SIMMONS on 04/28/20 1624 Last Action: Discontinued Metoprolol Succinate (Metoprolol Succinate) 50 Mg Tab.er.24h, 50 MG PO DAILY Discontinued Reason: No Longer Taking Prescribed by: KIRA SAWANT on 11/25/19 1503 Last Action: Discontinued Prednisone (Prednisone) 20 Mg Tab, 40 MG PO DAILY Discontinued Reason: No Longer Taking Prescribed by: JENELLE SIMMONS on 04/28/20 1624 Last Action: Discontinued Review of Systems Review of Systems Constitutional: see HPI, fever, malaise, weakness EENTM: nose congestion Respiratory: see HPI, cough, short of breath Cardiovascular: no symptoms reported; No chest pain, No edema, No palpitations, No syncope, No vascular heart diseas Gastrointestinal: see HPI; No abdominal pain; diarrhea, loss of appetite, nausea, vomiting Genitourinary: see HPI, decreased output Musculoskeletal: see HPI (BODY ACHES) Skin: no symptoms reported Psychiatric/Neurological: See HPI, Headache Hematologic/Lymphatic: No Symptoms Reported Immunological/Allergic: no symptoms reported Past Ssfanoo-Wthvuk-Oeniqa Hx Patient Social History Tobacco Use?: Yes Tobacco type used: Cigarettes Smoking Status: Former Smoker Substance use?: No Alcohol Use?: No Immunizations Up To Date Tetanus Booster (TDap): Unknown PED Vaccines UTD: No Second COVID19 Vaccination Olegario: STATES 2 DOSES OF VACCINES LESS THAN 6 MO AGO Seasonal Allergies Seasonal Allergies: Yes Past Medical History Surgery/Hospitalization HX: COPD AFIB HOME O2 PRN Surgeries: No Respiratory: Yes COPD Currently Using CPAP: No Currently Using BIPAP: No Cardiac: Yes Atrial Fibrillation, Hypertension Neurological: No Genitourinary: No Gastrointestinal: No Musculoskeletal: No Endocrine: No HEENT: No Cancer: No Psychosocial: No Integumentary: Yes (Spot on left ear "burnt off several yrs ago") Recent Skin Changes Blood Disorders: No Adverse Reaction/Blood Tranf: No Family Medical History Abdominal aortic aneurysm Alzheimer's disease 19 FATHER, , Onset:60 years & older Completed stroke G8 SISTER, Onset:60 years & older FH: blindness 19 FATHER, , Onset:Unknown 19 MOTHER, , Onset:Unknown FH: breast cancer 19 MOTHER, , Onset:40's - 50 FH: colon cancer G8 BROTHER, Onset:60 years & older FH: liver cancer G8 BROTHER, Onset:60 years & older SOCIAL HISTORY: -SMOKED 3 PPD, QUIT WHEN HE WAS IN HIS 50'S -ETOH --DENIES USE -DRUGS--DENIES USE Physical Exam Vital Signs - First Documented Capillary Refill : Less Than 3 Seconds Height: '" Weight: lbs. oz. kg; 22.00 BMI Method: General Appearance: WD/WN, no apparent distress, thin, other (ABLE TO SPEAK IN FULL SENTENCES) HEENT: PERRL/EOMI, pharynx normal Neck: normal inspection Respiratory: no respiratory distress, no accessory muscle use, decreased breath sounds (DECREASED AERATION IN ALL LUNG ESCOBAR, ) Cardiovascular: normal peripheral pulses, no edema, no JVD, no murmur, tachycardia Gastrointestinal: normal bowel sounds, non tender, soft Extremities: normal range of motion, non-tender, normal inspection, no pedal edema, no calf tenderness, normal capillary refill Neurologic/Psychiatric: service station attendant II-XII nml as tested, no motor/sensory deficits, alert, normal mood/affect, oriented x 3 Skin: normal color (VERY WARM), warm/dry; No rash Focused Exam Sepsis Stage: Sepsis Possible Source: Pulmonary Lactate Level 09/30/21 19:10: Lactic Acid Level 2.00 Time of Focused Exam: 20:15 Respiratory: Normal Breath Sounds, No Accessory Muscle Use, No Respiratory Distress Cardiovascular: No Murmur, Tachycardia Capillary Refill: Less Than 3 Seconds Skin: normal color, warm/dry Lactic Acid Level Laboratory Tests Test 09/30/21 19:10 Lactic Acid Level 2.00 MMOL/L (0.50-2.00) Within 3hrs of presentation: Admin fluids, Admin ABX, Blood cultures prior to ABX's, Focus exam, Lactate level Progress/Results/Core Measures Suspected Sepsis SIRS Temperature: Pulse: 112 Respiratory Rate: 24 Laboratory Tests 09/30/21 19:10: White Blood Count 10.6 Blood Pressure 146 /69 Mean: 94 09/30/21 19:10: Lactic Acid Level 2.00 Laboratory Tests 09/30/21 19:10: Creatinine 1.40H, INR Comment 2.8H, Platelet Count 577H, Total Bilirubin 0.4 Results/Orders Lab Results Laboratory Tests Test 09/30/21 19:10 09/30/21 20:13 Range/Units White Blood Count 10.6 4.3-11.0 10^3/uL Red Blood Count 4.52 4.30-5.52 10^6/uL Hemoglobin 13.3 13.3-17.7 g/dL Hematocrit 40 40-54 % Mean Corpuscular Volume 89 80-99 fL Mean Corpuscular Hemoglobin 29 25-34 pg Mean Corpuscular Hemoglobin Concent 33 32-36 g/dL Red Cell Distribution Width 14.7 H 10.0-14.5 % Platelet Count 577 H 130-400 10^3/uL Mean Platelet Volume 9.8 9.0-12.2 fL Immature Granulocyte % (Auto) 1 % Neutrophils (%) (Auto) 87 H 42-75 % Lymphocytes (%) (Auto) 5 L 12-44 % Monocytes (%) (Auto) 7 0-12 % Eosinophils (%) (Auto) 0 0-10 % Basophils (%) (Auto) 0 0-10 % Neutrophils # (Auto) 9.2 H 1.8-7.8 10^3/uL Lymphocytes # (Auto) 0.6 L 1.0-4.0 10^3/uL Monocytes # (Auto) 0.7 0.0-1.0 10^3/uL Eosinophils # (Auto) 0.0 0.0-0.3 10^3/uL Basophils # (Auto) 0.0 0.0-0.1 10^3/uL Immature Granulocyte # (Auto) 0.1 0.0-0.1 10^3/uL Neutrophils % (Manual) 91 % Lymphocytes % (Manual) 3 % Monocytes % (Manual) 6 % Blood Morphology Comment NORMAL Erythrocyte Sedimentation Rate 66 H 0-30 MM/HR Prothrombin Time 29.6 H 12.2-14.7 SEC INR Comment 2.8 H 0.8-1.4 Activated Partial Thromboplast Time 89 H 24-35 SEC D-Dimer 1.41 H 0.00-0.49 UG/ML Sodium Level 137 135-145 MMOL/L Potassium Level 3.9 3.6-5.0 MMOL/L Chloride Level 101 98-107 MMOL/L Carbon Dioxide Level 23 21-32 MMOL/L Anion Gap 13 5-14 MMOL/L Blood Urea Nitrogen 25 H 7-18 MG/DL Creatinine 1.40 H 0.60-1.30 MG/DL Estimat Glomerular Filtration Rate 50 BUN/Creatinine Ratio 18 Glucose Level 88 70-105 MG/DL Lactic Acid Level 2.00 0.50-2.00 MMOL/L Calcium Level 8.9 8.5-10.1 MG/DL Corrected Calcium 9.4 8.5-10.1 MG/DL Magnesium Level 2.1 1.6-2.4 MG/DL Total Bilirubin 0.4 0.1-1.0 MG/DL Aspartate Amino Transf (AST/SGOT) 43 H 5-34 U/L Alanine Aminotransferase (ALT/SGPT) 44 0-55 U/L Alkaline Phosphatase 99 40-136 U/L Lactate Dehydrogenase 327 H 125-220 U/L Total Creatine Kinase 320 H 30-200 U/L Creatine Kinase MB 2.2 <6.6 NG/ML Myoglobin 259.7 H 10.0-92.0 NG/ML Troponin I < 0.028 <0.028 NG/ML C-Reactive Protein High Sensitivity 27.97 H 0.00-0.50 MG/DL B-Type Natriuretic Peptide 28.5 <100.0 PG/ML Total Protein 6.7 6.4-8.2 GM/DL Albumin 3.4 3.2-4.5 GM/DL Procalcitonin 3.74 H <0.10 NG/ML Influenza Type A (RT-PCR) Not Detected Not Detecte Influenza Type B (RT-PCR) Not Detected Not Detecte SARS-CoV-2 RNA (RT-PCR) Detected H Not Detecte Blood Gas Puncture Site RB Blood Gas Patient Temperature 38.6 Arterial Blood pH 7.41 7.37-7.43 Arterial Blood Partial Pressure CO2 39 35-45 MMHG Arterial Blood Partial Pressure O2 64 L 79-93 MMHG Arterial Blood HCO3 24 23-27 MMOL/L Arterial Blood Total CO2 25.4 21.0-31.0 MMOL/L Arterial Blood Oxygen Saturation 93 L 94-100 % Arterial Blood Base Excess 0.0 -2.5-2.5 MMOL/L Pacheco Test NA Blood Gas Ventilator Setting NO Blood Gas Inspired Oxygen 2L My Orders Orders - GILBERTO DOBBINS DO Cbc With Automated Diff (09/30/21 18:58) Comprehensive Metabolic Panel (09/30/21 18:58) Blood Culture (09/30/21 18:58) Sputum Culture (09/30/21 18:58) Urinalysis (09/30/21 18:58) Urine Culture (09/30/21 18:58) Protime With Inr (09/30/21 18:58) Partial Thromboplastin Time (09/30/21 18:58) Chest 1 View, Ap/Pa Only (09/30/21 18:58) Acetaminophen Tablet (Tylenol Tablet) (09/30/21 19:00) Ed Iv/Invasive Line Start (09/30/21 18:58) Ed Iv/Invasive Line Start (09/30/21 18:58) Vital Signs Adult Sepsis Patie Q15M (09/30/21 18:58) O2 (09/30/21 18:58) Remove Rings In Anticipation O (09/30/21 18:58) Lactic Acid Analyzer (09/30/21 18:58) Influenza A And B By Pcr (09/30/21 18:58) Lactated Ringers (Lr 1000 Ml Iv Solution (09/30/21 19:00) Fibrin Degradation Products (09/30/21 18:58) Procalcitonin (Pct) (09/30/21 18:58) Hs C Reactive Protein (09/30/21 18:58) Erythrocyte Sedimentation Rate (09/30/21 18:58) LDH (09/30/21 18:58) Covid 19 Inhouse Test (09/30/21 18:58) Ekg Tracing (09/30/21 18:58) O2 (09/30/21 18:58) Monitor-Rhythm Ecg Trace Only (09/30/21 18:58) Bnp [place] (09/30/21 18:58) Creatine Kinase (09/30/21 18:58) Creatine Kinase Mb (09/30/21 18:58) Magnesium (09/30/21 18:58) Myoglobin Serum (09/30/21 18:58) Troponin I Shira (09/30/21 18:58) Isolation Central Supply Req (09/30/21 18:58) Ibuprofen Tablet (Motrin Tablet) (09/30/21 19:15) Ondansetron Injection (Zofran Injectio (09/30/21 19:15) Dexamethasone Injection (Decadron Inje (09/30/21 19:15) Dexamethasone Injection (Decadron Inje (09/30/21 19:13) Manual Differential (09/30/21 19:10) Arterial Blood Gas (09/30/21 20:13) Ct Angio Chest W (09/30/21 19:59) Ed Iv/Invasive Line Start (09/30/21 19:59) Lactated Ringers (Lr 1000 Ml Iv Solution (09/30/21 20:00) Iohexol Injection (Omnipaque 350 Mg/Ml 1 (09/30/21 20:45) Received Contrast (Hold Metformin- Contr (09/30/21 20:45) Ns (Ivpb) (Sodium Chloride 0.9% Ivpb Bag (09/30/21 20:45) Ed Admission (Communication) (09/30/21 20:44) Cefepime Injection (Maxipime Injection) (09/30/21 20:45) Medications Given in ED Current Medications Medications Dose Ordered Sig/Cody Route Start Time Stop Time Status Last Admin Dose Admin Acetaminophen 1,000 mg ONCE PRN PO 09/30/21 19:00 09/30/21 19:16 DC 09/30/21 19:15 1,000 MG Dexamethasone Sodium Phosphate 10 mg ONCE ONCE IV 09/30/21 19:15 09/30/21 19:16 DC 09/30/21 19:16 10 MG Ibuprofen 800 mg ONCE ONCE PO 09/30/21 19:15 09/30/21 19:16 DC 09/30/21 19:16 800 MG Iohexol 100 ml ONCE ONCE IV 09/30/21 20:45 09/30/21 20:46 DC 09/30/21 20:37 75 ML Lactated Ringer's 1,000 ml @ 0 mls/hr Q0M ONCE IV 09/30/21 19:00 09/30/21 19:01 DC 09/30/21 19:16 999 MLS/HR Ondansetron HCl 8 mg ONCE ONCE IVP 09/30/21 19:15 09/30/21 19:16 DC 09/30/21 19:15 8 MG Sodium Chloride 100 ml ONCE ONCE IV 09/30/21 20:45 09/30/21 20:46 DC 09/30/21 20:37 80 ML Vital Signs/I&O 09/30/21 09/30/21 09/30/21 19:00 19:00 19:00 Temp 38.6 Pulse 112 Resp 24 B/P (MAP) 146/69 (94) Pulse Ox 92 O2 Delivery Nasal Cannula Nasal Cannula Nasal Cannula O2 Flow Rate 2.00 2.00 2.00 Capillary Refill : Less Than 3 Seconds Blood Pressure Mean: 94 Progress Note : Progress Note PLACED IN ISOLATION ROOM PPE WORN AT ALL TIMES COVID-19 TEST ORDERED SEPSIS PROTOCOL INITIATED GIVEN IV FLUIDS GIVEN TYLENOL AND MOTRIN FOR FEVER GIVEN DECADRON FOR SHORTNESS OF BREATH O2 SATS UPPER 90'S ON 2L/NC ON ARRIVAL, THEN DID GRADUALLY DECREASE TO 91% WHILE AT REST, O2 INCREASED TO 3L/NC AND SATS UP TO MID 90'S UNEVENTFUL ER STAY ECG Initial ECG Impression Date: Sep 30, 2021 Initial ECG Impression Time: 19:07 Initial ECG Rate: 110 Initial ECG Rhythm: S.Tach Diagnostic Imaging Comments CXR--PER RADIOLOGIST REPORT AT 1956 FINDINGS: There is air trapping compatible with COPD. There is patchy right basilar infiltrate. There is no pleural effusion or pneumothorax. The mediastinum is unremarkable. IMPRESSION: COPD with right basilar infiltrate suspect for pneumonia. Reviewed: Reviewed by Me Departure Communication (Admissions) 2042--SPOKE WITH DR. ROSALES, ACCEPTS PT FOR ADMIT. WILL DO ADMIT ORDERS Impression Primary Impression: Acute on chronic respiratory failure with hypoxia Additional Impressions: Pneumonia due to COVID-19 virus Sepsis Disposition: ADMITTED INPATIENT Condition: Stable Admissions Decision to Admit Reason: Admit from ER (General) Decision to Admit/Date: Sep 30, 2021 Time/Decision to Admit Time: 20:43 Departure-Patient Inst. Referrals: DEEJAY DE MD (PCP/Family) Primary Care Physician GILBERTO DOBBINS DO Sep 30, 2021 19:39
[2021-09-30 19:42] LABS: LYMPHOCYTES % (MANUAL) 3 %; MONOCYTES % (MANUAL) 6 %; NEUTROPHILS % (MANUAL) 91 %; RBC MORPH NORMAL
[2021-09-30 19:43] LABS: ERYTHROCYTE SEDIMENTATION RATE 66 MM/HR (0-30)
[2021-09-30 19:45] LABS: ALANINE AMINOTRANSFERASE 44 U/L (0-55); ALBUMIN 3.4 GM/DL (3.2-4.5); ALKALINE PHOSPHATASE 99 U/L (40-136); BILIRUBIN,TOTAL 0.4 MG/DL (0.1-1.0); BUN/CREATININE RATIO 18; CALCIUM 8.9 MG/DL (8.5-10.1); CARBON DIOXIDE 23 MMOL/L (21-32); CHLORIDE 101 MMOL/L (98-107); CREATINE KINASE 320 U/L (30-200); GFR ESTIMATED 50; GLUCOSE 88 MG/DL (70-105); MAGNESIUM 2.1 MG/DL (1.6-2.4); POTASSIUM 3.9 MMOL/L (3.6-5.0); SODIUM 137 MMOL/L (135-145); TOTAL PROTEIN 6.7 GM/DL (6.4-8.2)
--- NOTE | 2021-09-30 19:53 | Diagnostic Imaging Report ---
INDICATION: Fever and dyspnea. COMPARISON: 01/04/2021 FINDINGS: There is air trapping compatible with COPD. There is patchy right basilar infiltrate. There is no pleural effusion or pneumothorax. The mediastinum is unremarkable. IMPRESSION: COPD with right basilar infiltrate suspect for pneumonia. Dictated by: Dictated on workstation # [id number]
[2021-09-30 20:00] LABS: CREATINE KINASE MB 2.2 NG/ML (<6.6)
[2021-09-30 20:18] LABS: ABG OXYGEN SATURATION 93 % (94-100); ABG PCO2 39 MMHG (35-45); ABG PH 7.41 (7.37-7.43); ABG PO2 64 MMHG (79-93); ABG TCO2 25.4 MMOL/L (21.0-31.0); INSPIRED O2 2L; PATIENT TEMP 38.6; VENTILATOR NO
[2021-09-30] MEDS ORDERED: IOHEXOL 350 MG/ML 100 ML (OMNIPAQUE 350) VIAL IV ONE (20:45)
[2021-09-30] MEDS ORDERED: HOLD METFORMIN - RECEIVED CONTRAST 20 ML VIAL IV SCH (20:45)
[2021-09-30] MEDS ORDERED: CEFEPIME INJECTION 1,000 MG in NS (IVPB) 50 ML IV ONE (20:45)
[2021-09-30] MEDS ORDERED: NS 100 ML (IVPB) BAG IV ONE (20:45)
--- NOTE | 2021-09-30 20:56 | Diagnostic Imaging Report ---
PROCEDURE: CT angiography of the chest with contrast. TECHNIQUE: Multiple contiguous axial images were obtained through the chest after uneventful bolus administration of intravenous contrast. 3D reconstructed CTA MIP acquisitions were also performed. Auto Exposure Controls were utilized during the CT exam to meet ALARA standards for radiation dose reduction. INDICATION: Chest pain and shortness of breath. FINDINGS: There is COPD with some bullous emphysematous disease and interstitial scarring. Some slightly more consolidated infiltrates in the lung bases cannot be excluded. There is no pneumothorax. The thoracic aorta is normal in caliber and without evidence of dissection. There are no filling defects seen within the pulmonary arteries to suggest pulmonary embolism. There is mildly enlarged adenopathy in the AP window and pretracheal region with nodes measuring up to 1.5 cm. There are multiple cysts in the liver. The remainder of the intra-abdominal structures are unremarkable. There are some degenerative changes in the spine. 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 At least mildly enlarged adenopathy in the pretracheal and AP windows. No evidence of pulmonary embolism, aortic aneurysm or dissection. Multiple hepatic cysts. Dictated by: Dictated on workstation # [id number]
[2021-09-30] MEDS ORDERED: ACETAMINOPHEN 325 MG TABLET PO PRN (21:30)
[2021-09-30] MEDS ORDERED: DOCUSATE SODIUM 100 MG (COLACE) CAP PO PRN (21:30)
[2021-09-30] MEDS ORDERED: ALPRAZolam 0.25 MG (XANAX) TAB PO PRN (21:30)
[2021-09-30] MEDS ORDERED: NS IV 1000 ML 1,000 ML IV SCH (21:30)
[2021-09-30] MEDS ORDERED: MELATONIN 3 MG TABLET PO PRN (21:30)
[2021-09-30] MEDS ORDERED: morphine INJ 10 MG/ML 1ML (SYR OR VIAL) IVP PRN (21:30)
[2021-09-30] MEDS ORDERED: CALCIUM CARBONATE 500 MG (TUMS) TAB.CHEW PO PRN (21:30)
[2021-09-30] MEDS ORDERED: LOPERAMIDE 2 MG (IMODIUM) TABLET PO PRN (21:30)
[2021-09-30] MEDS ORDERED: ENOXAPARIN 40 MG/0.4 ML (LOVENOX) SYR SC SCH ×2 (21:30→21:45)
[2021-09-30] MEDS ORDERED: HYDROcodone/APAP 5 MG/325 MG (LORTAB) TAB PO PRN (21:30)
[2021-09-30] MEDS ORDERED: diphenhydrAMINE 25 MG TAB (BENADRYL) PO PRN (21:30)
[2021-09-30] MEDS ORDERED: ONDANSETRON 4 MG/2 ML (SDV) Z0FRAN IV PRN (21:30)
--- NOTE | 2021-09-30 21:33 | Tele-ICU Consult ---
History of Present Illness History of Present Illness Date Seen by Provider: Sep 30, 2021 Time Seen by Provider: 21:29 Date of Admission ED COURSE PT ARRIVES VIA EMS FROM HOME PT STATES HE HAS BEEN SICK SINCE Thursday09/27/21 C/O PRODUCTIVE COUGH WITH THICK COLORED SPUTUM TEMP WAS 104 THIS EVENING AT HOME, BUT HAS NOT TAKEN ANYTHING FOR FEVER AT ANY TIME C/O SHORTNESS OF BREATH--HAS COPD AND HAS HOME O2, SUPPOSED TO WEAR AT 2L/NC, AND INCREASED IT TO 3L/NC TODAY WITHOUT IMPROVEMENT IN SHORTNESS OF BREATH. PT WAS NOT WEARING ANY O2 WHEN THEY ARRIVED AT SCENE AND O2 SATS WERE 70-80% ON ROOM AIR. EMS GAVE ALBUTEROL NEB TREATMENT ENROUTE AND PLACED ON 8L/NC AND PT WITH O2 SATS UP TO 97%. PT STATES HE USED ALBUTEROL NEBULIZER AND INHALER AT 1700 THIS EVENING WITHOUT RELIEF C/O MILD HEADACHE C/O BODY ACHES C/O NAUSEA/VOMITING/DIARRHEA--HAS VOMITED > 5 TIMES TODAY, AND HAD UNKNOWN NUMBER OF DIARRHEA STOOLS TODAY NO ABDOMINAL PAIN IS URINATING, BUT NOT MUCH PT IS DRINKING SOME LIQUIDS, BUT NOT MUCH FOOD NO LOSS OF TASTE OR SMELL C/O MUCH FATIGUE NO CHEST PAIN OR PAIN WITH BREATHING PT ALSO HAS HISTORY OF ATRIAL FIBRILLATION, ON XARELTO PT HAS NOT TAKEN ANYTHING ELSE FOR SYMPTOMS AT ANY TIME HAS NOT SOUGHT CARE UNTIL TONIGHT. STATES SYMPTOMS ARE NOT WORSE TONIGHT, MADE HIM COME TO ER NO KNOWN SICK CONTACTS-- IS NOT ILL PT HAS HAD COVID-19 VACCINE X 2 --DOES NOT RECALL WHAT MONTH, BUT HAS BEEN LESS THAN 6 MONTHS. HAS NOT HAD FLU VACCINE. ADD: ct chest showed no acute pe pt is comfortable in bed, saturating well on O2 4l Allergies and Home Medications Allergies Coded Allergies: No Known Drug Allergies (Unverified , 11/21/19) Home Medications Aspirin 81 Mg Tablet.dr, 81 MG PO DAILY Prescribed by: KIRA SAWANT on 11/25/19 1509 Cetirizine HCl 10 Mg Tablet, 10 MG PO DAILY, (Reported) Diltiazem HCl 180 Mg Cap.er.24h, 360 MG PO DAILY@0900 Prescribed by: KIRA SAWANT on 11/25/19 1503 Fluticasone/Vilanterol 1 Each Blst.w.dev, 1 PUFF INH DAILY, (Reported) Guaifenesin 1,200 Mg Tab.er.12h, 1,200 MG PO Q12H Prescribed by: TOMAS LOONEY on 01/04/21 175 Ipratropium/Albuterol Sulfate 3 Ml Ampul.neb, 3 ML NEB QID PRN for SHORTNESS OF BREATH, (Reported) Multivitamin 1 Each Tablet, 1 TAB PO DAILY, (Reported) Past Medical/Social/Family Hx Patient Social History Tobacco Use?: Yes Tobacco type used: Cigarettes Smoking Status: Former Smoker Smokeless type used: Chew Substance use?: No Alcohol Use?: No Immunizations Up To Date Second COVID19 Vaccination Olegario: STATES 2 DOSES OF VACCINES LESS THAN 6 MO AGO Tetanus Booster (TDap): Unknown Date of Pneumonia Vaccine: Jul 21, 2017 Current Status Communicates: Verbally Primary Language: Afghan Preferred Spoken Language: Afghan Is interpretation needed?: No Past Medical History COPD Family Medical History Family Hx: SOCIAL HISTORY: -SMOKED 3 PPD, QUIT WHEN HE WAS IN HIS 50'S -ETOH --DENIES USE -DRUGS--DENIES USE Review of Systems Constitutional: no symptoms reported, see HPI Focused Exam Lactate Level 09/30/21 19:10: Lactic Acid Level 2.00 Height, Weight, BMI Height: '" Weight: lbs. oz. kg; 22.00 BMI Method: Time of Focused Exam: 20:15 Lactic Acid Level Laboratory Tests Test 09/30/21 19:10 Lactic Acid Level 2.00 MMOL/L (0.50-2.00) Exam Exam Patient acknowledged, consented, and participated in this virtual visit which was conducted using real time audio/video Vital Signs Date Time Temp Pulse Resp B/P (MAP) Pulse Ox O2 Delivery O2 Flow Rate FiO2 09/30/21 19:00 Nasal Cannula 2.00 09/30/21 19:00 38.6 112 24 146/69 (94) 92 Nasal Cannula 2.00 09/30/21 19:00 Nasal Cannula 2.00 Height & Weight Height: '" Weight: lbs. oz. kg; 22.00 BMI Method: General Appearance: No Apparent Distress Respiratory: Normal Breath Sounds, No Accessory Muscle Use, No Respiratory Distress Cardiovascular: No Murmur, Tachycardia Capillary Refill: Less Than 3 Seconds Gastrointestinal: normal bowel sounds, non tender, soft Results Lab Laboratory Tests 09/30/21 19:10 Assessment/Plan Assessment/Plan Acute hypoxemic resp failure in the context of COVID PNA in a patient with copd: -decadron/ lovenox -trend abg/ d dimer -add remdesivir - with caution since creatinine is going up SHAZIA APARICIO MD Sep 30, 2021 21:33
[2021-09-30] MEDS ORDERED: VANCOMYCIN INJECTION 1,000 MG in NS (IVPB) 250 ML IV SCH (21:45)
[2021-09-30 22:01] VITALS: BP 146/69
[2021-09-30] MEDS ORDERED: RT-ALBUTEROL HFA 8.5 GM INHALER IH PRN (22:15)
[2021-09-30] MEDS ORDERED: VANCOMYCIN INJECTION 1,500 MG in NS IV 500 ML 500 ML IV ONE (22:15)
[2021-09-30] MEDS: AZITHROMYCIN INJECTION 500 MG in NS (IVPB) 250 ML IV SCH (22:51)
[2021-10-01] MEDS: CEFEPIME 1,000 MG/NS 50 ML IVPB IV SCH ×8 (02:01→20:23)
[2021-10-01] MEDS: RT-ALBUTEROL HFA 8.5 GM INHALER IH SCH ×6 (02:37→21:59)
[2021-10-01] MEDS ORDERED: NS IV 500 ML 500 ML IV SCH ×2 (03:30→05:15)
[2021-10-01] MEDS ORDERED: NS IV 500 ML 500 ML ONE (03:32)
[2021-10-01] MEDS ORDERED: NS IV 500 ML 500 ML IV ONE ×2 (03:45→05:15)
[2021-10-01 04:26] LABS: BASOPHILS % (AUTO) 0 % (0-10); EOSINOPHILS % (AUTO) 0 % (0-10); HEMATOCRIT 37 % (40-54); HEMOGLOBIN 11.9 g/dL (13.3-17.7); LYMPHOCYTES # (AUTO) 0.3 10^3/uL (1.0-4.0); LYMPHOCYTES % (AUTO) 3 % (12-44); MEAN CORPUSCULAR HEMOGLOBIN 29 pg (25-34); MEAN CORPUSCULAR HGB CONC 32 g/dL (32-36); MEAN CORPUSCULAR VOLUME 89 fL (80-99); MEAN PLATELET VOLUME 9.9 fL (9.0-12.2); MONOCYTES # (AUTO) 0.3 10^3/uL (0.0-1.0); MONOCYTES % (AUTO) 3 % (0-12); NEUTROPHILS % (AUTO) 92 % (42-75); PLATELET COUNT 452 10^3/uL (130-400); WHITE BLOOD COUNT 8.7 10^3/uL (4.3-11.0)
[2021-10-01 04:36] LABS: ALBUMIN 2.8 GM/DL (3.2-4.5); POTASSIUM 4.3 MMOL/L (3.6-5.0)
[2021-10-01 04:38] LABS: TOTAL PROTEIN 5.4 GM/DL (6.4-8.2)
[2021-10-01 04:40] LABS: BILIRUBIN,TOTAL 0.3 MG/DL (0.1-1.0)
[2021-10-01 04:42] LABS: CREATININE SERUM 1.2 MG/DL (0.60-1.30)
[2021-10-01 04:45] LABS: MAGNESIUM 2.2 MG/DL (1.6-2.4)
[2021-10-01] MEDS ORDERED: POTASSIUM CL 10MEQ/50ML IVPB 50 ML IV SCH (06:00)
[2021-10-01] MEDS ORDERED: KCL 20 MEQ TAB (K-DUR) PO SCH (06:00)
[2021-10-01] MEDS ORDERED: MAGNESIUM 1 GM/100 ML IVPB 100 ML IV SCH (06:00)
--- NOTE | 2021-10-01 06:11 | History & Physical-Hospitalist ---
History of Present Illness HPI/Chief Complaint CC: SOB HPI: This is a 71yoWM who has a PMH of AF who has Covid-19 and was in acute respiratory failure with sepsis. He was placed on protocol meds, IV fluids, 3 liters of O2 and placed in the ICU. He is doing a lot better, transferring to cardiac step down and doing much better. Source: patient Exam Limitations: no limitations Date Seen 10/01/21 Time Seen by a Provider: 11:00 Attending Physician Giselle Sepulveda Pankaj K MD Referring Physician Date of Admission Sep 30, 2021 at 20:44 Home Medications & Allergies Home Medications Reviewed patient Home Medication Reconciliation performed by pharmacy medication reconciliations order entry technician and/or nursing. Patients Allergies have been reviewed. Allergies Allergies Coded Allergies No Known Drug Allergies (Unverified11/21/19) Past Rkadgln-Hjfryw-Digvoe Hx Patient Social History Marrital Status: Employed/Student: retired Tobacco Use?: Yes Tobacco type used: Cigarettes Smoking Status: Former Smoker Smokeless type used: Chew Substance use?: No Alcohol Use?: No Immunizations Up To Date First/Initial COVID19 Vaccinat: STATES 2 DOSES OF VACCINES LESS THAN 6 MO AGO Second COVID19 Vaccination Olegario: STATES 2 DOSES OF VACCINES LESS THAN 6 MO AGO Tetanus Booster (TDap): Unknown PED Vaccines UTD: No Date of Pneumonia Vaccine: Jul 21, 2017 Seasonal Allergies Seasonal Allergies: Yes Current Status Communicates: Verbally Primary Language: Cymro Preferred Spoken Language: Cymro Is interpretation needed?: No Past Medical History COPD Currently Using CPAP: No Currently Using BIPAP: No Atrial Fibrillation, Hypertension Recent Skin Changes Blood Disorders: No Adverse Reaction/Blood Tranf: No COPD Family Medical History Abdominal aortic aneurysm Alzheimer's disease 19 FATHER, , Onset:60 years & older Completed stroke G8 SISTER, Onset:60 years & older FH: blindness 19 FATHER, , Onset:Unknown 19 MOTHER, , Onset:Unknown FH: breast cancer 19 MOTHER, , Onset:40's - 50 FH: colon cancer G8 BROTHER, Onset:60 years & older FH: liver cancer G8 BROTHER, Onset:60 years & older SOCIAL HISTORY: -SMOKED 3 PPD, QUIT WHEN HE WAS IN HIS 50'S -ETOH --DENIES USE -DRUGS--DENIES USE Review of Systems Constitutional: see HPI, dizziness, malaise, weakness EENTM: no symptoms reported Respiratory: dyspnea on exertion, short of breath Cardiovascular: no symptoms reported Gastrointestinal: no symptoms reported Genitourinary: no symptoms reported Musculoskeletal: no symptoms reported Skin: no symptoms reported Psychiatric/Neurological: No Symptoms Reported All Other Systems Reviewed Negative Unless Noted: Yes Physical Exam Physical Exam Vital Signs Vital Signs - First Documented 10/02/21 01:23 FiO2 28 Capillary Refill : Less Than 3 Seconds Height, Weight, BMI Height: '" Weight: lbs. oz. kg; 21.85 BMI Method: General Appearance: No Apparent Distress, Chronically ill Eyes: Right Eye Normal Inspection, Right Eye PERRL HEENT: PERRL/EOMI, Normal ENT Inspection, Pharynx Normal, Moist Mucous Membranes Neck: Full Range of Motion, Normal Inspection, Non Tender Respiratory: Chest Non Tender, Lungs Clear, No Accessory Muscle Use, No Respiratory Distress, Decreased Breath Sounds Cardiovascular: Regular Rate, Rhythm, No Edema, No Gallop, No JVD, No Murmur, Normal Peripheral Pulses Gastrointestinal: Normal Bowel Sounds, No Organomegaly, No Pulsatile Mass, Non Tender, Soft Back: Normal Inspection, No CVA Tenderness, No Vertebral Tenderness Extremity: Normal Capillary Refill, Normal Inspection, Normal Range of Motion, Non Tender, No Calf Tenderness, No Pedal Edema Neurologic/Psychiatric: Alert, Oriented x3, No Motor/Sensory Deficits, Normal Mood/Affect Skin: Normal Color, Warm/Dry Lymphatic: No Adenopathy Results Results/Procedures Labs Laboratory Tests 09/30/21 19:10 10/01/21 03:45 Patient resulted labs reviewed. Assessment/Plan Admission Diagnosis Assessment: Acute hypoxic respiratory failure COVID-19 pneumonia Smoker Chronic atrial fibrillation Plan: COVID-19 protocol Supportive care Cardiology consult Admission Status: Inpatient Order (span 2 midnights) Reason for Inpatient Admission: COVID-19 pneumonia Diagnosis/Problems Diagnosis/Problems (1) Pneumonia due to COVID-19 virus Status: Acute (2) Acute on chronic respiratory failure with hypoxia Status: Acute (3) Chronic bronchitis with COPD (chronic obstructive pulmonary disease) Status: Acute GISELLE SEPULVEDA DO Oct 01, 2021 06:11
[2021-10-01] MEDS ORDERED: REMDESIVIR INJ 200 MG in NS (IVPB) 210 ML IV ONE (07:00)
--- NOTE | 2021-10-01 07:00 | Diagnostic Imaging Report ---
INDICATION: Pneumonia COMPARISON: 09/30/2021 FINDINGS: Single view of the chest demonstrates unchanged bilateral pulmonary infiltrates with hyperinflation. There is no pneumothorax or effusion. The heart is prominent but stable. IMPRESSION: Unchanged bilateral pulmonary infiltrates. Dictated by: Dictated on workstation # [id number]
[2021-10-01] MEDS: guaiFENesin (MUCINEX) 600 MG TAB PO SCH ×2 (08:15→20:23)
[2021-10-01] MEDS: polyethylene glycoL POWDER 17 GM (MIRALAX) PACK PO SCH ×2 (08:16→20:38)
[2021-10-01] MEDS: SENNA W/DOCUSATE (SENOKOT S) TABLET PO SCH ×2 (08:16→20:39)
[2021-10-01] MEDS ORDERED: CEFEPIME INJECTION 1,000 MG in NS (IVPB) 50 ML IV SCH (09:00)
[2021-10-01] MEDS ORDERED: CEFEPIME INJECTION 2,000 MG in NS (IVPB) 50 ML IV SCH (09:00)
--- NOTE | 2021-10-01 10:28 | Tele-ICU Progress Note ---
Subjective Date Seen by a Provider: Oct 01, 2021 Time Seen by a Provider: 10:28 Sepsis Event Evaluation Height, Weight, BMI Height: '" Weight: lbs. oz. kg; 21.85 BMI Method: Focused Exam Lactate Level 09/30/21 19:10: Lactic Acid Level 2.00 10/01/21 04:50: Lactic Acid Level 0.78 Time of Focused Exam: 20:15 Exam Exam Patient acknowledged, consented, and participated in this virtual visit which was conducted using real time audio/video Vital Signs Date Time Temp Pulse Resp B/P (MAP) Pulse Ox O2 Delivery O2 Flow Rate FiO2 10/01/21 08:24 Nasal Cannula 3.00 10/01/21 07:55 36.2 10/01/21 07:02 93 Nasal Cannula 3.00 10/01/21 07:00 49 10/01/21 06:00 57 22 88/55 95 Nasal Cannula 3.00 10/01/21 05:00 65 16 88/72 95 Nasal Cannula 3.00 10/01/21 04:26 73 24 95/58 93 Nasal Cannula 3.00 10/01/21 03:39 36.0 10/01/21 03:27 Nasal Cannula 3.00 10/01/21 03:00 73 19 83/48 83 Nasal Cannula 3.00 10/01/21 02:45 85 85/57 92 Nasal Cannula 3.00 10/01/21 02:37 91 Nasal Cannula 3.00 10/01/21 01:15 74 10/01/21 01:00 69 91/58 96 Nasal Cannula 3.00 10/01/21 01:00 70 10/01/21 00:28 Nasal Cannula 3.00 10/01/21 00:00 78 21 98/58 94 Nasal Cannula 3.00 10/01/21 00:00 36.4 09/30/21 23:00 94 28 123/58 88 Nasal Cannula 3.00 09/30/21 22:57 Nasal Cannula 3.00 09/30/21 22:45 86 23 113/54 94 Nasal Cannula 4.00 09/30/21 22:30 87 11 103/58 93 Nasal Cannula 4.00 09/30/21 22:15 85 16 114/58 95 Nasal Cannula 4.00 09/30/21 22:01 38.6 112 92 09/30/21 22:00 86 21 108/55 96 Nasal Cannula 4.00 09/30/21 21:55 90 09/30/21 21:45 Nasal Cannula 3.00 09/30/21 21:45 88 16 97/31 95 Nasal Cannula 4.00 09/30/21 21:31 37.1 89 19 102/61 93 Nasal Cannula 4.00 09/30/21 21:07 37.9 87 18 110/72 93 Nasal Cannula 2.00 09/30/21 19:00 Nasal Cannula 2.00 09/30/21 19:00 38.6 112 24 146/69 (94) 92 Nasal Cannula 2.00 09/30/21 19:00 Nasal Cannula 2.00 I & O 10/01/21 07:00 Intake Total 4155 ml Output Total 725 ml Balance 3430 ml Height & Weight Height: '" Weight: lbs. oz. kg; 21.85 BMI Method: General Appearance: No Apparent Distress Respiratory: Normal Breath Sounds, No Accessory Muscle Use, No Respiratory Distress Cardiovascular: No Murmur, Tachycardia Capillary Refill: Less Than 3 Seconds Gastrointestinal: normal bowel sounds, non tender, soft Results Lab Laboratory Tests 09/30/21 19:10 10/01/21 03:45 Assessment/Plan Assessment/Plan (Tele-ICU Physician , Progress Note ) Available chart/ vitals / labs / Images reviewed Video assessment done using teleICU camera, rest of exam as per RN Discussed with RN , EXAM PER RN Events overnight : Afebrile FiO2 - 3l I/O = Drips: Pressors: , hemodynamically stable Consultants: Hospital course: A/P AHRF - on NS 3L -prone position if able - conservative fluid strategy (aim for even or negative fluid balance KITK-Diuxvoljqas-6/COVID-19 PNA ( vaccinted --Remdesivir --Dexamethasone -Hypercoagulable state -> lovenox proph dose ( no evidence of large PE on CT on 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 Discussed with RN to reach out if any questions or concerns A total of 20 minutes of critical care time was devoted to this patient today, required to treat and/or prevent further deterioration of critical care condition ( as above) . YANNI LEZAMA MD Oct 01, 2021 10:28
--- NOTE | 2021-10-01 10:56 | Consultation-Cardiology ---
HPI-Cardiology Cardiology Consultation: Date of Consultation 10/01/21 Time Seen by a Provider: 11:00 Date of Admission 09-30-21 Attending Physician Giselle Rosales DO Admitting Physician Shaw Pedersen MD Consulting Physician Nikko Barksdale MD HPI: Chief Complaint: Chronic a-fib with controlled rate Mr. Servin is a 71 yr old male admitted to ICU7 from the ED with COVID (+) pneumonia. He reports he started to feel weak, increasingly SOB and generally unwell on Thursday of last week. He reports he was managing his symptoms at home with breathing treatments and oxygen. However, yesterday he was feeling worse and more SOB so he called EMS. He reports fever and chills. He denies any c/o CP or palpitations. States he has had a poor appetite and low intake. No report of syncope or near syncope. He reports he is feeling better this m orning. No c/o LE swelling. Review of Systems-Cardiology Review of Systems Constitutional: chills, fever, malaise, weight loss Eyes: No vision change Ears/Nose/Throat: No epistaxis Respiratory: As described under HPI Cardiovascular: As described under HPI Gastrointestinal: As described under HPI Genitourinary: No dysuria, No hematuria Skin: No rash on exposed areas, No ulcerations on exposed areas Psychiatric/Neurological: No anxiety, No depression, No seizure, No focal weakness, No syncope Hematologic: No bleeding abnormalities YLI-Sgcqah-Ucjtrf Hx Patient Social History Smoking Status: Former Smoker 2nd Hand Smoke Exposure: No Have you traveled recently?: No Alcohol Use?: No Tobacco type used: Cigarettes Immunizations Up To Date Tetanus Booster (TDap): Unknown Date of Pneumonia Vaccine: Jul 21, 2017 Past Medical History PMH As described under Assessment. Family Medical History Family Medical History: He reports his mother, brother and sister have had CVA's. No reported family h/o CAD. Family History: Abdominal aortic aneurysm Alzheimer's disease 19 FATHER, , Onset:60 years & older Completed stroke G8 SISTER, Onset:60 years & older FH: blindness 19 FATHER, , Onset:Unknown 19 MOTHER, , Onset:Unknown FH: breast cancer 19 MOTHER, , Onset:40's - 50 FH: colon cancer G8 BROTHER, Onset:60 years & older FH: liver cancer G8 BROTHER, Onset:60 years & older Allergies and Home Medications Allergies Coded Allergies: No Known Drug Allergies (Unverified , 11/21/19) Patient Home Medication List Aspirin (Aspirin EC) 81 Mg Tablet.dr, 81 MG PO DAILY Prescribed by: KIRA SAWANT on 11/25/19 1509 Last Action: Last Taken Edited Cetirizine HCl (Cetirizine HCl) 10 Mg Tablet, 10 MG PO DAILY, (Reported) Entered as Reported by: SEJAL CARTWRIGHT on 11/22/19851 Last Action: Last Taken Edited Diltiazem HCl (Diltiazem 24Hr ER) 180 Mg Cap.er.24h, 360 MG PO DAILY@0900 Prescribed by: KIRA SAWANT on 11/25/19 150 Last Action: Last Taken Edited Fluticasone/Vilanterol (Breo Ellipta 100-25 Mcg INH) 1 Each Blst.w.dev, 1 PUFF INH DAILY, (Reported) Entered as Reported by: SEJAL CARTWRIGHT on 11/22/19851 Last Action: Last Taken Edited Guaifenesin (Mucinex) 1,200 Mg Tab.er.12h, 1,200 MG PO Q12H Prescribed by: TOMAS LOONEY on 01/04/211753 Last Action: Last Taken Edited Ipratropium/Albuterol Sulfate (Iprat-Albut 0.5-3(2.5) mg/3 ml) 3 Ml Ampul.neb, 3 ML NEB QID PRN for SHORTNESS OF BREATH, (Reported) Entered as Reported by: SEJAL CARTWRIGHT on 11/22/19851 Last Action: Last Taken Edited Multivitamin (Multivitamins) 1 Each Tablet, 1 TAB PO DAILY, (Reported) Entered as Reported by: SEJAL CARTWRIGHT on 11/22/19851 Last Action: Last Taken Edited Rivaroxaban (Xarelto) 20 Mg Tablet, (Reported) Entered as Reported by: HÉCTOR HERRERA on 09/30/211927 Last Action: New Order [Albuterol] , (Reported) Entered as Reported by: HÉCTOR HERRERA on 09/30/211927 Last Action: New Order Discontinued Medications Levofloxacin (Levaquin) 750 Mg Tablet, 750 MG PO DAILY Discontinued Reason: No Longer Taking Prescribed by: JENELLE SIMMONS on 04/28/20 1624 Last Action: Discontinued Metoprolol Succinate (Metoprolol Succinate) 50 Mg Tab.er.24h, 50 MG PO DAILY Discontinued Reason: No Longer Taking Prescribed by: KIRA SAWANT on 11/25/19 1503 Last Action: Discontinued Prednisone (Prednisone) 20 Mg Tab, 40 MG PO DAILY Discontinued Reason: No Longer Taking Prescribed by: JENELLE SIMMONS on 04/28/20 162 Last Action: Discontinued Physical Exam-Cardiology Physical Exam Vital Signs/I&O 10/01/21 10/01/21 10/01/21 10/01/21 00:00 00:00 00:28 01:00 Temp 36.4 Pulse 78 70 Resp 21 B/P (MAP) 98/58 Pulse Ox 94 O2 Delivery Nasal Cannula Nasal Cannula O2 Flow Rate 3.00 3.00 10/01/21 10/01/21 10/01/21 10/01/21 01:00 01:15 02:37 02:45 Pulse 69 74 85 B/P (MAP) 91/58 85/57 Pulse Ox 96 91 92 O2 Delivery Nasal Cannula Nasal Cannula Nasal Cannula O2 Flow Rate 3.00 3.00 3.00 10/01/21 10/01/21 10/01/21 10/01/21 03:00 03:27 03:39 04:26 Temp 36.0 Pulse 73 73 Resp 19 24 B/P (MAP) 83/48 95/58 Pulse Ox 83 93 O2 Delivery Nasal Cannula Nasal Cannula Nasal Cannula O2 Flow Rate 3.00 3.00 3.00 10/01/21 10/01/21 10/01/21 10/01/21 05:00 06:00 07:00 07:02 Pulse 65 57 49 Resp 16 22 B/P (MAP) 88/72 88/55 Pulse Ox 95 95 93 O2 Delivery Nasal Cannula Nasal Cannula Nasal Cannula O2 Flow Rate 3.00 3.00 3.00 10/01/21 10/01/21 10/01/21 07:55 08:24 10:28 Temp 36.2 Pulse Ox 96 O2 Delivery Nasal Cannula Nasal Cannula O2 Flow Rate 3.00 3.00 10/01/21 00:00 Intake Total 2050 ml Balance 2050 ml Capillary Refill : Less Than 3 Seconds Constitutional: AAO x 3, well-developed, well-nourished HEENT: PERRL, hearing is well preserved, oral hygience is good Neck: No carotid bruit; carotid pulses are 2 + bilaterally Respiratory: No accessory muscle use, No respiratory distress; chest expansion is symmetric, chest is bilaterally symmetric, rhonchi (scattered), other (coarse breathsounds throughout ) Cardiovascular: irregularly irregular; No JVD; S1 and S2 Gastrointestinal: No tender; soft, round, audible bowel sounds Extremities: no lower extremity edema bilateral Neurologic/Psychiatric: grossly intact (moves all extremities) Skin: No rash on exposed areas, No ulcerations on exposed areas Data Review Labs Laboratory Tests 09/30/21 19:10: White Blood Count 10.6, Red Blood Count 4.52, Hemoglobin 13.3, Hematocrit 40, Mean Corpuscular Volume 89, Mean Corpuscular Hemoglobin 29, Mean Corpuscular Hemoglobin Concent 33, Red Cell Distribution Width 14.7H, Platelet Count 577H, Mean Platelet Volume 9.8, Immature Granulocyte % (Auto) 1, Neutrophils (%) (Auto) 87H, Lymphocytes (%) (Auto) 5L, Monocytes (%) (Auto) 7, Eosinophils (%) (Auto) 0, Basophils (%) (Auto) 0, Neutrophils # (Auto) 9.2H, Lymphocytes # (Auto) 0.6L, Monocytes # (Auto) 0.7, Eosinophils # (Auto) 0.0, Basophils # (Auto) 0.0, Immature Granulocyte # (Auto) 0.1, Neutrophils % (Manual) 91, Lymphocytes % (Manual) 3, Monocytes % (Manual) 6, Blood Morphology Comment NORMAL, Erythrocyte Sedimentation Rate 66H, Prothrombin Time 29.6H, INR Comment 2.8H, Activated Partial Thromboplast Time 89H, D-Dimer 1.41H, Sodium Level 137, Potassium Level 3.9, Chloride Level 101, Carbon Dioxide Level 23, Anion Gap 13, Blood Urea Nitrogen 25H, Creatinine 1.40H, Estimat Glomerular Filtration Rate 50, BUN/Creatinine Ratio 18, Glucose Level 88, Lactic Acid Level 2.00, Calcium Level 8.9, Corrected Calcium 9.4, Magnesium Level 2.1, Total Bilirubin 0.4, Asp artate Amino Transf (AST/SGOT) 43H, Alanine Aminotransferase (ALT/SGPT) 44, Alkaline Phosphatase 99, Lactate Dehydrogenase 327H, Total Creatine Kinase 320H, Creatine Kinase MB 2.2, Myoglobin 259.7H, Troponin I < 0.028, C-Reactive Protein High Sensitivity 27.97H, B-Type Natriuretic Peptide 28.5, Total Protein 6.7, Albumin 3.4, Procalcitonin 3.74H, Influenza Type A (RT-PCR) Not Detected, Influenza Type B (RT-PCR) Not Detected, SARS-CoV-2 RNA (RT-PCR) DetectedH 09/30/21 20:13: Blood Gas Puncture Site RB, Blood Gas Patient Temperature 38.6, Arterial Blood pH 7.41, Arterial Blood Partial Pressure CO2 39, Arterial Blood Partial Pressure O2 64L, Arterial Blood HCO3 24, Arterial Blood Total CO2 25.4, Arterial Blood Oxygen Saturation 93L, Arterial Blood Base Excess 0.0, Pacheco Test NA, Blood Gas Ventilator Setting NO, Blood Gas Inspired Oxygen 2L 10/01/21 03:45: White Blood Count 8.7, Red Blood Count 4.11L, Hemoglobin 11.9L, Hematocrit 37L, Mean Corpuscular Volume 89, Mean Corpuscular Hemoglobin 29, Mean Corpuscular Hemoglobin Concent 32, Red Cell Distribution Width 14.8H, Platelet Count 452H, M rosemary Platelet Volume 9.9, Immature Granulocyte % (Auto) 1, Neutrophils (%) (Auto) 92H, Lymphocytes (%) (Auto) 3L, Monocytes (%) (Auto) 3, Eosinophils (%) (Auto) 0, Basophils (%) (Auto) 0, Neutrophils # (Auto) 8.0H, Lymphocytes # (Auto) 0.3L, Monocytes # (Auto) 0.3, Eosinophils # (Auto) 0.0, Basophils # (Auto) 0.0, Immature Granulocyte # (Auto) 0.1, Sodium Level 138, Potassium Level 4.3, Chloride Level 106, Carbon Dioxide Level 21, Anion Gap 11, Blood Urea Nitrogen 21H, Creatinine 1.20, Estimat Glomerular Filtration Rate 59, BUN/Creatinine Ratio 18, Glucose Level 245H, Calcium Level 8.0L, Corrected Calcium 9.0, Magn esium Level 2.2, Total Bilirubin 0.3, Aspartate Amino Transf (AST/SGOT) 38H, Alanine Aminotransferase (ALT/SGPT) 35, Alkaline Phosphatase 83, Total Protein 5.4L, Albumin 2.8L, Phosphorus Level 3.0 10/01/21 04:50: Lactic Acid Level 0.78 Radiology NAME: JOSEFINA SERVIN MED REC#: [id number] PT STATUS: ADM IN : 1950 PHYSICIAN: GISELLE ROSALES DO ADMIT DATE: 09/30/21/ICU Signed Date of Exam:10/01/21 CHEST 1 VIEW, AP/PA ONLY INDICATION: Pneumonia COMPARISON: 09/30/2021 FINDINGS: Single view of the chest demonstrates unchanged bilateral pulmonary infiltrates with hyperinflation. There is no pneumothorax or effusion. The heart is prominent but stable. IMPRESSION: Unchanged bilateral pulmonary infiltrates. Dictated by: Dictated on workstation # [id number] Dict: 10/01/21 0649 Trans: 10/01/21 1016 CHELY [id number] Interpreted by: MAEGAN LEWIS Electronically signed by: MAEGAN LEWIS 10/01/21 1016 ECG Impression ECG Initial ECG Impression: Atrial Fibrillation A/P-Cardiology Assessment/Admission Diagnosis Chronic a-fib - first diagnosed on EKG of 11-21-2019 - rate controlled - OAC with Xarelto - Echo of 11/22/19: LVEF 50-55%, RVSP 30 mmHg COVID (+) Pneumonia - management is by the Hospitalist and Pulm Services Hypotension - likely secondary to sepsis d/t COVID 19 pneumonia HTN - currently hypotensive COPD Chew tobacco user (quit smoking approx 20 years ago) Discussion and Recomendations Chronic a-fib with controlled rate - continue long acting Diltiazem Continue OAC with Xarelto for stroke prophylaxis Monitor lab closely Replace electrolytes as indicated Management of COVID 19 pneumonia is per medical/eICU services We would like to thank medical services for this consult CLARY GONZALEZ Oct 01, 2021 10:56
[2021-10-01] MEDS ORDERED: RT-ALBUINH INH (14:36)
[2021-10-01] MEDS ORDERED: DILT180C85 PO (14:36)
[2021-10-01] MEDS: VANCOMYCIN 1250 MG/NS 250 ML IVPB IV SCH ×2 (16:49)
[2021-10-01] MEDS: RIVAROXABAN 20 MG TABLET (XARELTO) PO SCH (16:50)
--- NOTE | 2021-10-01 19:51 | Consultation-Cardiology ---
HPI-Cardiology Cardiology Consultation: Date of Consultation 10/01/21 Time Seen by a Provider: 19:30 Date of Admission Attending Physician Giselle Sepulveda DO Admitting Physician Shaw Pedersen MD Consulting Physician TANA LUTHER MD, MA, FACP, FACC, [facility], CCDS Physician requesting Card consult: Dr Sepulveda HPI: Chief Complaint: Reason for cardiology consult: Chronic a-fib with controlled rate HPI Mr. Fernando is a 71 yr old male admitted to ICU7 from the ED with COVID (+) pneumonia. He reports he started to feel weak, increasingly SOB and generally unwell on Thursday of last week. He reports he was managing his symptoms at home with breathing treatments and oxygen. However, yesterday he was feeling worse and more SOB so he called EMS. He reports fever and chills. He denies any c/o CP or palpitations. States he has had a poor appetite and low intake. No report of syncope or near syncope. He reports he is feeling better this morning. No c/o LE swelling. Review of Systems-Cardiology Review of Systems Constitutional: chills, fever, malaise, weight loss Eyes: No vision change Ears/Nose/Throat: No epistaxis Respiratory: As described under HPI Cardiovascular: As described under HPI Gastrointestinal: As described under HPI Genitourinary: No dysuria, No hematuria Skin: No rash on exposed areas, No ulcerations on exposed areas Psychiatric/Neurological: No anxiety, No depression, No seizure, No focal weakness, No syncope Hematologic: No bleeding abnormalities GUU-Jjcaph-Uojrep Hx Patient Social History Smoking Status: Former Smoker 2nd Hand Smoke Exposure: No Have you traveled recently?: No Alcohol Use?: No Tobacco type used: Cigarettes Immunizations Up To Date Tetanus Booster (TDap): Unknown Date of Pneumonia Vaccine: Jul 21, 2017 Past Medical History PMH As described under Assessment. Family Medical History Family Medical History: He reports his mother, brother and sister have had CVA's. No reported family h/o CAD. Family History: Abdominal aortic aneurysm Alzheimer's disease 19 FATHER, , Onset:60 years & older Completed stroke G8 SISTER, Onset:60 years & older FH: blindness 19 FATHER, , Onset:Unknown 19 MOTHER, , Onset:Unknown FH: breast cancer 19 MOTHER, , Onset:40's - 50 FH: colon cancer G8 BROTHER, Onset:60 years & older FH: liver cancer G8 BROTHER, Onset:60 years & older Allergies and Home Medications Allergies Coded Allergies: No Known Drug Allergies (Unverified , 11/21/19) Patient Home Medication List Home Medication List Reviewed: Yes Albuterol Sulfate (Proventil Hfa) 6.7 Gm Hfa.aer.ad, 2 PUFF INH Q6H PRN for SHORTNESS OF BREATH, (Reported) Entered as Reported by: LUIS WOODS on 10/01/211435 Last Action: Reviewed Diltiazem HCl (Diltiazem 24Hr ER) 180 Mg Cap.er.24h, 360 MG PO DAILY, (Reported) Entered as Reported by: LUIS WOODS on 10/01/211435 Last Action: Reviewed Fluticasone/Vilanterol (Breo Ellipta 100-25 Mcg INH) 1 Each Blst.w.dev, 1 PUFF INH DAILY, (Reported) Entered as Reported by: SEJAL CARTWRIGHT on 11/22/19851 Last Action: Reviewed Ipratropium/Albuterol Sulfate (Iprat-Albut 0.5-3(2.5) mg/3 ml) 3 Ml Ampul.neb, 3 ML NEB QID PRN for SHORTNESS OF BREATH, (Reported) Entered as Reported by: SEJAL CARTWRIGHT on 11/22/19851 Last Action: Reviewed Rivaroxaban (Xarelto) 20 Mg Tablet, 20 MG PO DAILY, (Reported) Entered as Reported by: HÉCTOR HERRERA on 09/30/211927 Last Action: Reviewed Discontinued Medications Aspirin (Aspirin EC) 81 Mg Tablet.dr, 81 MG PO DAILY Discontinued Reason: No Longer Taking Prescribed by: KIRA SAWANT on 11/25/19 3643 Last Action: Discontinued Cetirizine HCl (Cetirizine HCl) 10 Mg Tablet, 10 MG PO DAILY, (Reported) Discontinued Reason: No Longer Taking Entered as Reported by: SEJAL CARTWRIGHT on 11/22/19851 Last Action: Discontinued Diltiazem HCl (Diltiazem 24Hr ER) 180 Mg Cap.er.24h, 360 MG PO DAILY@0900 Discontinued Reason: No Longer Taking Prescribed by: KIRA SAWANT on 11/25/19 6213 Last Action: Discontinued Guaifenesin (Mucinex) 1,200 Mg Tab.er.12h, 1,200 MG PO Q12H Discontinued Reason: No Longer Taking Prescribed by: TOMAS LOONEY on 01/04/21 1754 Last Action: Discontinued Levofloxacin (Levaquin) 750 Mg Tablet, 750 MG PO DAILY Discontinued Reason: No Longer Taking Prescribed by: JENELLE SIMMOSN on 04/28/20 1624 Last Action: Discontinued Metoprolol Succinate (Metoprolol Succinate) 50 Mg Tab.er.24h, 50 MG PO DAILY Discontinued Reason: No Longer Taking Prescribed by: KIRA SAWANT on 11/25/19 1503 Last Action: Discontinued Multivitamin (Multivitamins) 1 Each Tablet, 1 TAB PO DAILY, (Reported) Discontinued Reason: No Longer Taking Entered as Reported by: SEJAL CARTWRIGHT on 11/22/19 0852 Last Action: Discontinued Prednisone (Prednisone) 20 Mg Tab, 40 MG PO DAILY Discontinued Reason: No Longer Taking Prescribed by: JENELLE SIMMONS on 04/28/20 1624 Last Action: Discontinued [Albuterol] , (Reported) Discontinued Reason: No Longer Taking Entered as Reported by: HÉCTOR HERRERA on 09/30/21 192 Last Action: Discontinued Physical Exam-Cardiology Physical Exam Vital Signs/I&O 10/01/21 10/01/21 10/01/21 10/01/21 07:55 08:00 08:24 09:00 Temp 36.2 Pulse 65 75 Resp 18 22 B/P (MAP) 106/61 85/62 Pulse Ox 95 87 O2 Delivery Nasal Cannula Nasal Cannula Nasal Cannula O2 Flow Rate 3.00 3.00 3.00 10/01/21 10/01/21 10/01/21 10/01/21 10:00 10:28 11:00 12:00 Pulse 66 71 80 Resp 19 13 28 B/P (MAP) 101/57 99/57 106/79 Pulse Ox 94 96 95 96 O2 Delivery Nasal Cannula Nasal Cannula Nasal Cannula Nasal Cannula O2 Flow Rate 3.00 3.00 3.00 3.00 10/01/21 10/01/21 10/01/21 10/01/21 12:45 13:00 13:00 14:00 Temp 35.6 Pulse 80 76 92 Resp 21 25 B/P (MAP) Pulse Ox 93 86 O2 Delivery Nasal Cannula Nasal Cannula O2 Flow Rate 3.00 3.00 10/01/21 10/01/21 10/01/21 10/01/21 14:30 15:00 16:00 16:09 Temp 36.1 Pulse 84 73 Resp 27 13 B/P (MAP) 120/78 Pulse Ox 95 93 93 O2 Delivery Nasal Cannula Nasal Cannula Nasal Cannula O2 Flow Rate 2.00 3.00 3.00 10/01/21 10/01/21 10/01/21 10/01/21 17:00 18:00 18:27 18:27 Pulse 69 79 Resp 21 B/P (MAP) Pulse Ox 94 94 91 91 O2 Delivery Nasal Cannula Nasal Cannula Nasal Cannula Nasal Cannula O2 Flow Rate 3.00 3.00 2.00 2.00 10/01/21 00:00 Intake Total 2050 ml Balance 2050 ml Capillary Refill : Less Than 3 Seconds Constitutional: AAO x 3, well-developed, well-nourished HEENT: PERRL, hearing is well preserved, oral hygience is good Neck: No carotid bruit; carotid pulses are 2 + bilaterally Respiratory: No accessory muscle use, No respiratory distress; chest expansion is symmetric, chest is bilaterally symmetric, rhonchi (scattered), other (coarse breathsounds throughout ) Cardiovascular: irregularly irregular; No JVD; S1 and S2 Gastrointestinal: No tender; soft, round, audible bowel sounds Extremities: no lower extremity edema bilateral Neurologic/Psychiatric: grossly intact (moves all extremities) Skin: No rash on exposed areas, No ulcerations on exposed areas Data Review Labs Laboratory Tests 09/30/21 20:13: Blood Gas Puncture Site RB, Blood Gas Patient Temperature 38.6, Arterial Blood pH 7.41, Arterial Blood Partial Pressure CO2 39, Arterial Blood Partial Pressure O2 64L, Arterial Blood HCO3 24, Arterial Blood Total CO2 25.4, Arterial Blood Oxygen Saturation 93L, Arterial Blood Base Excess 0.0, Pacheco Test NA, Blood Gas Ventilator Setting NO, Blood Gas Inspired Oxygen 2L 10/01/21 03:45: White Blood Count 8.7, Red Blood Count 4.11L, Hemoglobin 11.9L, Hematocrit 37L, Mean Corpuscular Volume 89, Mean Corpuscular Hemoglobin 29, Mean Corpuscular Hemoglobin Concent 32, Red Cell Distribution Width 14.8H, Platelet Count 452H, Mean Platelet Volume 9.9, Immature Granulocyte % (Auto) 1, Neutrophils (%) (Auto) 92H, Lymphocytes (%) (Auto) 3L, Monocytes (%) (Auto) 3, Eosinophils (%) (Auto) 0, Basophils (%) (Auto) 0, Neutrophils # (Auto) 8.0H, Lymphocytes # (Auto) 0.3L, Monocytes # (Auto) 0.3, Eosinophils # (Auto) 0.0, Basophils # (Auto) 0.0, Immature Granulocyte # (Auto) 0.1, Sodium Level 138, Potassium Level 4.3, Chloride Level 106, Carbon Dioxide Level 21, Anion Gap 11, Blood Urea Nitrogen 21H, Creatinine 1.20, Estimat Glomerular Filtration Rate 59, BUN/Creatinine Ratio 18, Glucose Level 245H, Calcium Level 8.0L, Corrected Calcium 9.0, Phosphorus Level 3.0, Magnesium Level 2.2, Total Bilirubin 0.3, Aspartate Amino Transf (AST/SGOT) 38H, Alanine Aminotransferase (ALT/SGPT) 35, Alkaline Phosphatase 83, Total Protein 5.4L, Albumin 2.8L 10/01/21 04:50: Lactic Acid Level 0.78 Microbiology 10/01/21 Gram Stain - Final, Resulted 10/01/21 Sputum Culture, Resulted Pending 09/30/21 Blood Culture - Preliminary, Resulted No growth A/P-Cardiology Assessment/Admission Diagnosis Chronic a-fib - first diagnosed on EKG of 11-21-2019 - rate controlled - OAC with Xarelto - Echo of 11/22/19: LVEF 50-55%, RVSP 30 mmHg COVID (+) Pneumonia - management is by the Hospitalist and Pulm Services Hypotension - likely secondary to sepsis d/t COVID 19 pneumonia HTN - currently hypotensive COPD Chew tobacco user (quit smoking approx 20 years ago) Discussion and Recomendations Chronic a-fib with controlled rate - continue long acting Diltiazem Continue OAC with Xarelto for stroke prophylaxis Monitor lab closely Replace electrolytes as indicated Management of COVID 19 pneumonia is per medical/eICU services We would like to thank medical services for this consult TANA LUTHER MD [facility] Oct 01, 2021 19:51
[2021-10-01] MEDS: AZITHROMYCIN INJECTION 500 MG in NS (IVPB) 250 ML IV SCH (23:00)
[2021-10-02 01:23] VITALS: BP 114/64
[2021-10-02] MEDS: CEFEPIME 1,000 MG/NS 50 ML IVPB IV SCH ×8 (02:45→21:22)
--- NOTE | 2021-10-02 06:48 | Progress Note - Hospitalist ---
Subjective HPI/CC On Admission Date Seen by Provider: Oct 02, 2021 Time Seen by Provider: 09:00 CC: SOB HPI: This is a 71yoWM who has a PMH of AF who has Covid-19 and was in acute respiratory failure with sepsis. He was placed on protocol meds, IV fluids, 3 liters of O2 and placed in the ICU. He is doing a lot better, transferring to cardiac step down and doing much better. Subjective/Events-last exam Pt actually doing pretty well Now on one liter of oxygen Transferring to fourth floor Has 21% bands on his complete blood count so will maintain on Vancomycin, Cefepime, Azithromycin along with Decadron Blood cultures were positive so will evaluate sensitivity of that tomorrow Review of Systems General: Fatigue, Malaise Pulmonary: Dyspnea, Cough Focused Exam Lactate Level 09/30/21 19:10: Lactic Acid Level 2.00 10/01/21 04:50: Lactic Acid Level 0.78 Time of Focused Exam: 20:15 Objective Exam Vital Signs Vital Signs Date Time Temp Pulse Resp B/P (MAP) Pulse Ox O2 Delivery O2 Flow Rate FiO2 10/03/21 03:44 36.6 82 20 131/80 91 High Flow N/C 0.50 10/02/21 01:23 28 Capillary Refill : Less Than 3 Seconds General Appearance: No Apparent Distress, WD/WN, Anxious, Chronically ill, Thin Respiratory: No Accessory Muscle Use, No Respiratory Distress, Decreased Breath Sounds Cardiovascular: Regular Rate, Rhythm Neurologic/Psychiatric: Alert, Oriented x3, No Motor/Sensory Deficits, Normal Mood/Affect Results/Procedures Lab Laboratory Tests 10/02/21 06:10 10/03/21 03:39 Patient resulted labs reviewed. Assessment/Plan Assessment and Plan Assess & Plan/Chief Complaint Assessment: Acute hypoxic respiratory failure COVID-19 pneumonia Smoker Chronic atrial fibrillation Plan: COVID-19 protocol Supportive care Cardiology consult 10/02/2021: IV antibiotics Follow-up on blood culture Covid treatment Oxygen supplementation Diagnosis/Problems Diagnosis/Problems (1) Pneumonia due to COVID-19 virus Status: Acute (2) Acute on chronic respiratory failure with hypoxia Status: Acute (3) Chronic bronchitis with COPD (chronic obstructive pulmonary disease) Status: Acute BALDOMERO ROSALES DO Oct 02, 2021 06:47
[2021-10-02 06:59] LABS: BASOPHILS % (AUTO) 0 % (0-10); EOSINOPHILS # (AUTO) 0.2 10^3/uL (0.0-0.3); EOSINOPHILS % (AUTO) 1 % (0-10); HEMATOCRIT 37 % (40-54); HEMOGLOBIN 12.2 g/dL (13.3-17.7); LYMPHOCYTES # (AUTO) 0.4 10^3/uL (1.0-4.0); LYMPHOCYTES % (AUTO) 2 % (12-44); MEAN CORPUSCULAR HEMOGLOBIN 29 pg (25-34); MEAN CORPUSCULAR HGB CONC 33 g/dL (32-36); MEAN CORPUSCULAR VOLUME 88 fL (80-99); MONOCYTES # (AUTO) 0.9 10^3/uL (0.0-1.0); MONOCYTES % (AUTO) 5 % (0-12); NEUTROPHILS # (AUTO) 15.5 10^3/uL (1.8-7.8); NEUTROPHILS % (AUTO) 90 % (42-75); PLATELET COUNT 521 10^3/uL (130-400); WHITE BLOOD COUNT 17.3 10^3/uL (4.3-11.0)
[2021-10-02 07:06] LABS: ALBUMIN 2.9 GM/DL (3.2-4.5); POTASSIUM 4.2 MMOL/L (3.6-5.0)
[2021-10-02 07:09] LABS: TOTAL PROTEIN 5.5 GM/DL (6.4-8.2)
[2021-10-02 07:11] LABS: BILIRUBIN,TOTAL 0.2 MG/DL (0.1-1.0)
[2021-10-02 07:12] LABS: CREATININE SERUM 0.9 MG/DL (0.60-1.30)
[2021-10-02 07:50] LABS: BAND NEUTROPHILS 21 %; LYMPHOCYTES % (MANUAL) 2 %; NEUTROPHILS % (MANUAL) 70 %
[2021-10-02 07:51] LABS: MONOCYTES % (MANUAL) 7 %; RBC MORPH NORMAL
[2021-10-02] MEDS: RT-ALBUTEROL HFA 8.5 GM INHALER IH SCH ×4 (07:59→18:55)
[2021-10-02] MEDS ORDERED: dilTIAZem120 MG (CARDIZEM CD) CAP PO SCH (09:00)
[2021-10-02] MEDS ORDERED: REMDESIVIR INJ 100 MG in NS (IVPB) 230 ML IV SCH (09:00)
[2021-10-02] MEDS: guaiFENesin (MUCINEX) 600 MG TAB PO SCH ×2 (09:06→21:22)
[2021-10-02] MEDS: polyethylene glycoL POWDER 17 GM (MIRALAX) PACK PO SCH ×2 (09:06→21:22)
[2021-10-02] MEDS: dilTIAZem120 MG (CARDIZEM CD) CAP PO SCH ×2 (09:06→21:22)
[2021-10-02] MEDS: SENNA W/DOCUSATE (SENOKOT S) TABLET PO SCH ×2 (09:06→21:22)
[2021-10-02] MEDS: VANCOMYCIN 1250 MG/NS 250 ML IVPB IV SCH ×2 (11:30)
--- NOTE | 2021-10-02 12:48 | Physician Query Clarification ---
Physician Query-General Query to Physician: The medical record reflects the following clinical scenario: The patient, in the setting of History/Risk factors, Covid 19 PNA, Clinical Findings Admission Labs/VS: HR 112, RR 24, BP 146/69 SpO2 92% sat on 2 L T 38.6, BP to Systolic 80 -90 within a few hours of admission, improved with IVF's, WBC 10.6, Lactic acid 2.0, Sepsis mentioned in HPI but not listed on diagnosis list. Treatment Greater than 4L IVF since admission, 2L in first 24 hours, Remdesivir, IV Dexamethasone, IV Azithromycin, IV Cefepime, Question: Do you agree with the impression of Sepsis per Dr. Ace Barksdale? If you agree, please document in Progress Notes or Discharge Summary. 1. Yes; will document Sepsis, present on admission in the Progress Notes 2. No; will continue current documentation in the Progress Notes 3. Other; will document explanation of clinical findings 4. Clinically undetermined; no explanation for clinical findings Please clarify and document your clinical opinion in the Progress Notes and Discharge Summary including the definitive and/or presumptive diagnosis, (suspected or probable), related to the above clinical findings. Please include clinical findings supporting your diagnosis. In responding to this query, please exercise your independent professional judgment. The purpose of this communication is to more accurately reflect the complexity of your patients condition. The fact that a question is asked does not imply that any particular answer is desired or expected. Please remember a lack of response to the above will prompt a phone page by CDI/coding staff Thank you for timely response to this clarification. Rivka Amezquita MSN, RN Clinical Community Services Coordinator [phone] [email or web address] PHYSICIAN RESPONSE: Based on the clinical findings in the record, please respond to the query above on this document as an addendum. Physician Response: Physician Response yes If you have questions please contact: Computerized Machine Fabric Cutter: Ext: Thank you for your time and cooperation. Clinical Community Services Coordinator/Computerized Machine Fabric Cutter This is a permanent part of the medical record RIVKA AMEZQUITA Oct 02, 2021 12:48 BALDOMERO ROSALES DO Oct 02, 2021 14:41
[2021-10-02] MEDS: RIVAROXABAN 20 MG TABLET (XARELTO) PO SCH (18:02)
--- NOTE | 2021-10-02 18:36 | Cardiology Progress Note ---
Progress Note-Cardiology Events since last exam Date Seen by Provider: Oct 02, 2021 Time Seen by Provider: 18:35 Events since last exam We are following him due to atrial fibrillation. I did not see the patient today due to his Covid status. The note from Dr. Barksdale on 10/01 states the patient has chronic atrial fibrillation. However, his electrocardiogram from 09/30 shows sinus rhythm. I suspect the patient has paroxysmal atrial fibrillation. Earlier today he was transferred from the cardiac stepdown unit to the medical floor. I spoke to his nurse on the medical floor and there have not been any cardiac issues today. Certain portions of this document may have been dictated utilizing voice recogn ition technology. Inherent to this technology, typographical and grammatical errors may exist. As much as I am diligent to identify and correct these mistakes, some errors may remain in the document. Vitals Last set of Vitals Signs Vital Signs 10/02/21 10/02/21 01:23 15:56 Temp 36.3 Pulse 75 Resp 18 B/P (MAP) 115/67 Pulse Ox 92 O2 Delivery High Flow N/C O2 Flow Rate 1.00 FiO2 28 Labs Labs Laboratory Tests 10/02/21 06:10 Exam Vital Signs Vital Signs Date Time Temp Pulse Resp B/P (MAP) Pulse Ox O2 Delivery O2 Flow Rate FiO2 10/02/21 15:56 36.3 75 18 115/67 92 High Flow N/C 1.00 10/02/21 01:23 28 Physical Exam I did not see the patient due to his Covid status. Labs Laboratory Tests Test 10/02/21 06:10 Range/Units White Blood Count 17.3 H 4.3-11.0 10^3/uL Red Blood Count 4.16 L 4.30-5.52 10^6/uL Hemoglobin 12.2 L 13.3-17.7 g/dL Hematocrit 37 L 40-54 % Mean Corpuscular Volume 88 80-99 fL Mean Corpuscular Hemoglobin 29 25-34 pg Mean Corpuscular Hemoglobin Concent 33 32-36 g/dL Red Cell Distribution Width 15.1 H 10.0-14.5 % Platelet Count 521 H 130-400 10^3/uL Mean Platelet Volume 10.0 9.0-12.2 fL Immature Granulocyte % (Auto) 1 % Neutrophils (%) (Auto) 90 H 42-75 % Lymphocytes (%) (Auto) 2 L 12-44 % Monocytes (%) (Auto) 5 0-12 % Eosinophils (%) (Auto) 1 0-10 % Basophils (%) (Auto) 0 0-10 % Neutrophils # (Auto) 15.5 H 1.8-7.8 10^3/uL Lymphocytes # (Auto) 0.4 L 1.0-4.0 10^3/uL Monocytes # (Auto) 0.9 0.0-1.0 10^3/uL Eosinophils # (Auto) 0.2 0.0-0.3 10^3/uL Basophils # (Auto) 0.0 0.0-0.1 10^3/uL Immature Granulocyte # (Auto) 0.2 H 0.0-0.1 10^3/uL Neutrophils % (Manual) 70 % Lymphocytes % (Manual) 2 % Monocytes % (Manual) 7 % Band Neutrophils 21 % Blood Morphology Comment NORMAL Sodium Level 137 135-145 MMOL/L Potassium Level 4.2 3.6-5.0 MMOL/L Chloride Level 105 98-107 MMOL/L Carbon Dioxide Level 23 21-32 MMOL/L Anion Gap 9 5-14 MMOL/L Blood Urea Nitrogen 16 7-18 MG/DL Creatinine 0.90 0.60-1.30 MG/DL Estimat Glomerular Filtration Rate 83 BUN/Creatinine Ratio 18 Glucose Level 114 H 70-105 MG/DL Calcium Level 8.0 L 8.5-10.1 MG/DL Corrected Calcium 8.9 8.5-10.1 MG/DL Total Bilirubin 0.2 0.1-1.0 MG/DL Aspartate Amino Transf (AST/SGOT) 40 H 5-34 U/L Alanine Aminotransferase (ALT/SGPT) 33 0-55 U/L Alkaline Phosphatase 86 40-136 U/L Total Protein 5.5 L 6.4-8.2 GM/DL Albumin 2.9 L 3.2-4.5 GM/DL Procalcitonin 2.13 H <0.10 NG/ML Diagnosis/Problems Diagnosis/Problems (1) Paroxysmal atrial fibrillation Assessment & Plan: His electrocardiogram on admission showed sinus tachycardia. He has not been on telemetry. He is on diltiazem for rate control in the event he has recurrent atrial fibrillation and rivaroxaban for stroke prophylaxis. It does not appear he has had any follow-up with our office since he was first diagnosed with atrial fibrillation in September 2020 when he was in the hospital for the flu. I will get him scheduled to see Dr. Barksdale in follow-up after he is discharged from this admission. Dr. Barksdale saw him in September 2020 and again during this admission. (2) Primary hypertension Assessment & Plan: He did have some intermittent hypotension on admission but blood pressure has improved. Continue diltiazem. GLORIA MAGDALENO JR, MD Oct 02, 2021 18:36
[2021-10-02] MEDS: RT--FLUTICASONE/SALMETEROL 113-14 (AIRDUO RespiCLICK) IH SCH (18:55)
[2021-10-02] MEDS: AZITHROMYCIN INJECTION 500 MG in NS (IVPB) 250 ML IV SCH (21:23)
[2021-10-03] MEDS: CEFEPIME 1,000 MG/NS 50 ML IVPB IV SCH ×4 (03:39→09:12)
[2021-10-03] MEDS ORDERED: TROUGH ORDER-PHARMACY XX NR (04:00)
[2021-10-03 04:01] LABS: BASOPHILS % (AUTO) 0 % (0-10); EOSINOPHILS % (AUTO) 0 % (0-10); HEMATOCRIT 38 % (40-54); HEMOGLOBIN 12.5 g/dL (13.3-17.7); LYMPHOCYTES # (AUTO) 0.7 10^3/uL (1.0-4.0); LYMPHOCYTES % (AUTO) 4 % (12-44); MEAN CORPUSCULAR HEMOGLOBIN 29 pg (25-34); MEAN CORPUSCULAR HGB CONC 33 g/dL (32-36); MEAN CORPUSCULAR VOLUME 88 fL (80-99); MEAN PLATELET VOLUME 9.9 fL (9.0-12.2); MONOCYTES # (AUTO) 0.8 10^3/uL (0.0-1.0); MONOCYTES % (AUTO) 5 % (0-12); NEUTROPHILS % (AUTO) 89 % (42-75); PLATELET COUNT 513 10^3/uL (130-400); WHITE BLOOD COUNT 16.9 10^3/uL (4.3-11.0)
[2021-10-03 04:11] LABS: ALBUMIN 2.9 GM/DL (3.2-4.5); POTASSIUM 4.3 MMOL/L (3.6-5.0)
[2021-10-03 04:12] LABS: CALCIUM 8.4 MG/DL (8.5-10.1)
[2021-10-03 04:13] LABS: TOTAL PROTEIN 5.5 GM/DL (6.4-8.2)
[2021-10-03 04:15] LABS: BILIRUBIN,TOTAL 0.3 MG/DL (0.1-1.0)
[2021-10-03 04:17] LABS: CREATININE SERUM 0.93 MG/DL (0.60-1.30)
[2021-10-03 04:26] LABS: VANCOMYCIN,TROUGH 11.5 UG/ML (10.0-20.0)
[2021-10-03] MEDS: VANCOMYCIN 1250 MG/NS 250 ML IVPB IV SCH ×2 (04:57)
[2021-10-03] MEDS: RT-ALBUTEROL HFA 8.5 GM INHALER IH SCH ×2 (07:47→11:16)
[2021-10-03] MEDS: RT--FLUTICASONE/SALMETEROL 113-14 (AIRDUO RespiCLICK) IH SCH (07:47)
[2021-10-03] MEDS ORDERED: FLUTICASONE/VILANTEROL 100 MCG 14'S (BREO) IH SCH (09:00)
[2021-10-03] MEDS: polyethylene glycoL POWDER 17 GM (MIRALAX) PACK PO SCH (09:11)
[2021-10-03] MEDS: SENNA W/DOCUSATE (SENOKOT S) TABLET PO SCH (09:12)
[2021-10-03] MEDS: dilTIAZem120 MG (CARDIZEM CD) CAP PO SCH (09:12)
[2021-10-03] MEDS: guaiFENesin (MUCINEX) 600 MG TAB PO SCH (09:12)
[2021-10-03] MEDS ORDERED: CEFD300C3 PO (12:43)
[2021-10-03] MEDS ORDERED: DEXA6TAB6 PO (12:43)
--- NOTE | 2021-10-04 05:57 | Discharge Summary ---
Discharge Summary Hospital Course Was the Problem List Reviewed?: Yes Problems/Dx: (1) Paroxysmal atrial fibrillation (2) Primary hypertension (3) Pneumonia due to COVID-19 virus Status: Acute Hospital Course Date of Admission: Sep 30, 2021 at 20:44 Admission Diagnosis : Family Physician/Provider: Shaw Pedersen MD Date of Discharge: 10/04/21 Discharge Diagnosis: COVID-19 pneumonia, acute hypoxic respiratory failure, COPD with exacerbation, bacterial pneumonia, atrial fibrillation Hospital Course: Hospital Course: Pt had a standard hospital course for 4 days when he was ad mitted for Covid-19 pneumonia. Overall he did very well, responded to IV antibiotics, IV decadron was decreased to his regular home oxygen and was deemed stable for discharge. Labs and Pending Lab Test: Microbiology 10/01/21 Gram Stain - Final, Complete 10/01/21 Sputum Culture - Final, Complete Usual upper respiratory devendra Haemophilus influenza 09/30/21 Blood Culture - Preliminary, Resulted No growth Home Meds Active Decadron (Dexamethasone) 6 Mg Tablet 6 Mg PO DAILY Cefdinir 300 Mg Capsule 300 Mg PO BID Reported Proventil Hfa (Albuterol Sulfate) 6.7 Gm Hfa.aer.ad 2 Puff INH Q6H PRN Diltiazem 24Hr ER (Diltiazem HCl) 180 Mg Cap.er.24h 360 Mg PO DAILY TAKES 2 (180MG) CAPS Xarelto (Rivaroxaban) 20 Mg Tablet 20 Mg PO DAILY Iprat-Albut 0.5-3(2.5) mg/3 ml (Ipratropium/Albuterol Sulfate) 3 Ml Ampul.neb 3 Ml NEB QID PRN Breo Ellipta 100-25 Mcg INH (Fluticasone/Vilanterol) 1 Each Blst.w.dev 1 Puff INH DAILY Assessment/Pt Instructions PCP in 2 weeks Discharge Planning: <30 minutes discharge planning Discharge Instructions Discharge Diet: No Restrictions Discharge Physical Examination Vital Signs Vital Signs Date Time Temp Pulse Resp B/P (MAP) Pulse Ox O2 Delivery O2 Flow Rate FiO2 10/03/21 15:21 10/03/21 12:00 35.9 112 22 90 High Flow N/C 0.50 10/02/21 01:23 28 General Appearance: No Apparent Distress, WD/WN, Chronically ill Respiratory: Lungs Clear, Normal Breath Sounds Cardiovascular: Regular Rate, Rhythm Neurologic/Psychiatric: Alert, Oriented x3, No Motor/Sensory Deficits, Normal Mood/Affect Allergies: Coded Allergies: No Known Drug Allergies (Unverified , 11/21/19) Discharge Summary Date of Admission Sep 30, 2021 at 20:44 Date of Discharge Oct 03, 2021 at 15:20 Discharge Date: Oct 03, 2021 Admission Diagnosis Assessment: Acute hypoxic respiratory failure COVID-19 pneumonia Smoker Chronic atrial fibrillation Plan: COVID-19 protocol Supportive care Cardiology consult Discharge Diagnosis Assessment: Acute hypoxic respiratory failure COVID-19 pneumonia Smoker Chronic atrial fibrillation Plan: COVID-19 protocol Supportive care Cardiology consult 10/02/2021: IV antibiotics Follow-up on blood culture Covid treatment Oxygen supplementation (1) Paroxysmal atrial fibrillation Assessment & Plan: His electrocardiogram on admission showed sinus tachycardia. He has not been on telemetry. He is on diltiazem for rate control in the event he has recurrent atrial fibrillation and rivaroxaban for stroke prophylaxis. It does not appear he has had any follow-up with our office since he was first diagnosed with atrial fibrillation in September 2020 when he was in the hospital for the flu. I will get him scheduled to see Dr. Barksdale in follow-up after he is discharged from this admission. Dr. Barksdale saw him in September 2020 and aga in during this admission. (2) Primary hypertension Assessment & Plan: He did have some intermittent hypotension on admission but blood pressure has improved. Continue diltiazem. BALDOMERO ROSALES DO Oct 04, 2021 05:57
== END 2021-10-03 15:20 | disposition home or self-care (01) | DRG 177 ==
LOC: EDUNIT# 18:56 → ER 18:57 → ICU 20:44 → CSD 10-01 20:47 → 4TH 10-02 15:35
PROVIDERS: ADMIT Internal Medicine; ATTEND Internal Medicine
PROC: XW033E5 Introduction of Remdesivir Anti-infective into Peripheral Vein, Percutaneous Approach, New Technology Group 5 (ICD-10-PCS; principal; 2021-09-30)
PROC: 8E0ZXY6 Isolation (ICD-10-PCS; 2021-09-30)
PROC: 5A0935A Assistance with Respiratory Ventilation, Less than 24 Consecutive Hours, High Flow/Velocity Cannula (ICD-10-PCS; 2021-10-02)
DX: U07.1 COVID-19 (principal); J12.82 Pneumonia due to coronavirus disease 2019; A41.9 Sepsis, unspecified organism; J96.21 Acute and chronic respiratory failure with hypoxia; J14 Pneumonia due to Hemophilus influenzae; I48.20 Chronic atrial fibrillation, unspecified; I48.0 Paroxysmal atrial fibrillation; I10 Essential (primary) hypertension; J43.9 Emphysema, unspecified; B96.3 Hemophilus influenzae [H. influenzae] as the cause of diseases classified elsewhere; F17.220 Nicotine dependence, chewing tobacco, uncomplicated; Z79.01 Long term (current) use of anticoagulants; Z79.899 Other long term (current) drug therapy; Z79.82 Long term (current) use of aspirin
CPT/HCPCS: 36415; 71045; 71275; 80053; 80202; 82550; 82553; 82805; 83605; 83615; 83735; 83874; 83880; 84100; 84145; 84484; 85007; 85025; 85027; 85379; 85610; 85652; 85730; 86141; 87040; 87070; 87077; 87081; 87185; 87205; 87636; 93005; 93041; 94640; 94760

== ENCOUNTER → 2023-07-28 | Outpatient (CLI) | payer MEDICARE ==
[~2023-07-28] MED LIST changes: +ALBUTEROL; +AMIO200T65 PO; +CEFD300C3 PO; +DEXA6TAB6 PO; +GUAI600T43 PO; +LISI5TAB20 PO; +NAPR220T66 PO; +PRD50T PO; +RIVA20TA PO; +RT-ALBUINH INH
== END ==
LOC: RAD 08:55
PROVIDERS: ATTEND Internal Medicine Cardiovascular Disease
DX: Z53.9 Procedure and treatment not carried out, unspecified reason (principal)